=== PATIENT | female | born 1975 | race Caucasian/White ===

== ENCOUNTER 2019-03-21 14:08 | Emergency (ER) | payer MEDICARE, OTHER ==
[2019-03-21 14:16] VITALS: BP 138/83; PULSE 63; RESP 18; TEMP 97.8
--- NOTE | 2019-03-21 14:29 | ED ---
Upper Extremity HPI - General Chief Complaint: Extremity Injury, Upper Stated Complaint: Hand Injury Time Seen by Provider: 03/21/19 14:28 Source: patient Mode of arrival: ambulatory Limitations: no limitations - History of Present Illness Initial Comments: 33-year-old female presenting for left hand pain states 4 weeks ago she slammed it in the fridge door. Patient states she has had pain all over since. Patient states she also has history of carpal tunnel and feels like that is acting up she states she has tingling in her fingers. She denies complete loss of sensation denies any neck injury or trauma. Patient denies any weakness in the hands or arm. Remaining review systems negative upon arrival patient appears well no signs acute distress. Denies fevers redness or flulike symptoms - Related Data Home Medications Medication Instructions Recorded Confirmed ALPRAZolam 0.5 mg PO BID PRN 06/05/15 12/21/15 Citalopram Hydrobromide [CeleXA] 40 mg PO DAILY 12/21/15 12/21/15 Lidocaine Viscous 2% [Xylocaine 5 ml MUCOUS MEM DIRECTED PRN 12/21/15 12/21/15 Viscous 2%] Previous Rx's Medication Instructions Recorded HYDROcodone/APAP 5-325MG [[place] 1 tab PO Q6HR PRN #30 tab 12/21/15 5-325] Penicillin V Potassium [Pen Vee K] 500 mg PO QID #40 tab 12/21/15 Allergies Allergy/AdvReac Type Severity Reaction Status Date / Time aspirin Allergy Swelling Verified 03/21/19 14:16 ibuprofen Allergy Swelling Verified 03/21/19 14:16 Review of Systems ROS Statement: Those systems with pertinent positive or pertinent negative responses have been documented in the HPI. ROS Other: All systems not noted in ROS Statement are negative. Past Medical History Past Medical History: Cancer, Osteoarthritis (OA), Seizure Disorder Additional Past Medical History / Comment(s): HEAVY FLOW AND PELVIC PAIN WITH MENSCES. Chronic back pain. gum cancer History of Any Multi-Drug Resistant Organisms: None Reported Past Surgical History: Section, Hernia Repair, Orthopedic Surgery, Tubal Ligation Additional Past Surgical History / Comment(s): ANXIETY INDUCED SEIZURES (LAST ONE ON 06/04/15). Gastric BYPASS. ORIF OF RIGHT ANKLE. RIGHT CARPAL TUNNEL. Past Anesthesia/Blood Transfusion Reactions: No Reported Reaction Past Psychological History: Anxiety Smoking Status: Never smoker Past Alcohol Use History: Occasional Past Drug Use History: Marijuana - Past Family History Father Family Medical History: Cancer Mother Family Medical History: Coronary Artery Disease (CAD) General Exam - General Exam Comments Initial Comments: General: The patient is awake and alert, in no distress, and does not appear acutely ill. Eye: Pupils are equal, round and reactive to light, extra-ocular movements are intact. No nystagmus. There is normal conjunctiva bilaterally. No signs of icterus. Cardiovascular: There is a regular rate and rhythm. No murmur, rub or gallop is appreciated. Respiratory: Lungs are clear to auscultation, respirations are non-labored, breath sounds are equal. No wheezes, stridor, rales, or rhonchi. Gastrointestinal: [Soft, non-distended, non-tender abdomen without masses or organomegaly noted. There is no rebound or guarding present. No CVA tenderness. Bowel sounds are unremarkable.] Musculoskeletal: Upon inspection of the hands bilaterally that are equal no soft tissue swelling or ecchymosis. No abrasions laceration. Patient is able to fully range at the MTP DIP and PIP joints of all 5 digits of the hands bilaterally these are equal. No wrist drop. Patient is able to make the okay fingers crossed thumbs-up and extends at the wrist bilaterally. Compartments are soft and compressible. +2 radial pulses bilaterally. Capillary refill less than 3 seconds. Pain/tingling is reproduced in the digits with tapping of the wrist. Neurological: A&O x 3. CN II-XII intact, There are no obvious motor or sensory deficits. Coordination appears grossly intact. Speech is normal. Skin: Skin is warm and dry and no rashes or lesions are noted. Psychiatric: Cooperative, appropriate mood & affect, normal judgment. Limitations: no limitations Course Vital Signs 03/21/19 14:13 Temperature 97.8 F Pulse Rate 63 Respiratory 18 Rate Blood Pressure 138/83 O2 Sat by Pulse 100 Oximetry Medical Decision Making - Medical Decision Making 43-year-old female presenting for left hand, 4 weeks prior complaining of consistent pain. She also states she has some tingling in the digits of her fingers she states she feels like her carpal tunnel is acting up. Positive Tinel's. Patient Norvasc intact. No evidence of significant trauma. No redness. The limitations of range of motion or strength. Patient neurovascularly intact. And he states negative for osseous process. Patient be discharged with instruction to rest ice compress the area take ibuprofen and Tylenol for pain management. I recommend if symptoms persist patient follow up with her primary care provider. Patient is agreeable to plan return parameters were discussed Disposition Clinical Impression: Right hand pain, Right wrist pain, Hx of carpal tunnel syndrome Disposition: HOME SELF-CARE Condition: Good Instructions (If sedation given, give patient instructions): Carpal Tunnel Surgery (DC) Additional Instructions: Please use medication as discussed. Please follow-up with family doctor in the next 2 days, if symptoms persist please follow-up with orthopedic surgery. Please return to emergency room if the symptoms increase or worsen or for any other concerns. Is patient prescribed a controlled substance at d/c from ED?: No Referrals: Luh Dickinson MD [Primary Care Provider] - 1-2 days Time of Disposition: 15:07
--- NOTE | 2019-03-21 15:03 | XR ---
EXAMINATION TYPE: XR wrist complete LT, XR hand complete LT DATE OF EXAM: 03/21/2019 CLINICAL HISTORY: Left hand and wrist pain after injury TECHNIQUE: Frontal, lateral and oblique images of the left hand and wrist wrist are obtained. Scapho id view was also obtained COMPARISON: None FINDINGS: There is no acute fracture/dislocation evident in the left hand nor left wrist. The joint spaces in the left hand nor left wrist appear within normal limits. The overlying soft tissue appea rs unremarkable. IMPRESSION: There is no acute fracture or dislocation in the left hand nor wrist.
== END 2019-03-21 15:15 | disposition home or self-care (01) ==
LOC: EC 14:08
DX: M79.642 Pain in left hand (principal); M25.532 Pain in left wrist; R20.0 Anesthesia of skin; R20.2 Paresthesia of skin; F41.9 Anxiety disorder, unspecified; Z86.69 Personal history of other diseases of the nervous system and sense organs; Z87.39 Personal history of other diseases of the musculoskeletal system and connective tissue; Z85.818 Personal history of malignant neoplasm of other sites of lip, oral cavity, and pharynx; Z79.899 Other long term (current) drug therapy; Z88.6 Allergy status to analgesic agent
CPT/HCPCS: 99283

== ENCOUNTER 2019-04-10 08:40 | Emergency (ER) | payer MEDICARE, OTHER ==
--- NOTE | 2019-04-10 09:49 | ED ---
General Adult HPI - General Chief complaint: Extremity Injury, Upper Stated complaint: LEFT HAND INJURY Time Seen by Provider: 04/10/19 09:38 Source: patient, RN notes reviewed Mode of arrival: ambulatory Limitations: no limitations - History of Present Illness Initial comments: 43-year-old female presents emergency Department chief complaint left hand pain, numbness. Patient states that she recently goes she is moving her fridge and states her hand crushed. Patient states she's ever since she's had pain, numbness and tingling in her fingers. Patient states is primarily her first to fourth digit. Patient states it's painful to touch area times. She is [id number] she also states some pain radiates up her arm. Denies any neck pain, headache, dizziness, chronic focal weakness. - Related Data Home Medications Medication Instructions Recorded Confirmed Cholecalciferol [Vitamin D3 (25 1,000 unit PO DAILY 04/10/19 04/10/19 Mcg = 1000 Iu)] DULoxetine HCL [Cymbalta] 60 mg PO DAILY 04/10/19 04/10/19 HYDROcodone/APAP 5-325MG [[place] 0.5 tab PO Q6HR PRN 04/10/19 04/10/19 5-325] Magnesium 200 mg PO DAILY 04/10/19 04/10/19 Multivitamins, Thera [Multivitamin 1 tab PO DAILY 04/10/19 04/10/19 (formulary)] Potassium Gluconate 99 mg PO DAILY 04/10/19 04/10/19 Vitamin A 8,000 unit PO DAILY 04/10/19 04/10/19 Vitamin B Complex 1 cap PO DAILY 04/10/19 04/10/19 Vitamin E (Dl,Tocopheryl Acet) 400 unit PO DAILY 04/10/19 04/10/19 [Vitamin E] hydrOXYzine HCL [Atarax] 25 mg PO DAILY 04/10/19 04/10/19 tiZANidine [Zanaflex] 4 mg PO TID 04/10/19 04/10/19 Previous Rx's Medication Instructions Recorded predniSONE 50 mg PO DAILY #5 tab 04/10/19 Allergies Allergy/AdvReac Type Severity Reaction Status Date / Time aspirin Allergy Swelling Verified 04/10/19 09:48 ibuprofen Allergy Swelling Verified 04/10/19 09:48 Review of Systems ROS Statement: Those systems with pertinent positive or pertinent negative responses have been documented in the HPI. ROS Other: All systems not noted in ROS Statement are negative. Past Medical History Past Medical History: Cancer, Osteoarthritis (OA), Seizure Disorder Additional Past Medical History / Comment(s): HEAVY FLOW AND PELVIC PAIN WITH MENSCES. Chronic back pain. gum cancer, pancreatitis History of Any Multi-Drug Resistant Organisms: None Reported Past Surgical History: Section, Hernia Repair, Orthopedic Surgery, Tubal Ligation Additional Past Surgical History / Comment(s): ANXIETY INDUCED SEIZURES (LAST ONE ON 06/04/15). Gastric BYPASS. ORIF OF RIGHT ANKLE. RIGHT CARPAL TUNNEL. Past Anesthesia/Blood Transfusion Reactions: No Reported Reaction Past Psychological History: Anxiety Smoking Status: Current every day smoker Past Alcohol Use History: Occasional Past Drug Use History: Marijuana - Past Family History Father Family Medical History: Cancer Mother Family Medical History: Coronary Artery Disease (CAD) General Exam Limitations: no limitations General appearance: alert, in no apparent distress Head exam: Present: atraumatic, normocephalic, normal inspection Neck exam: Present: normal inspection, full ROM. Absent: tenderness, meningismus, lymphadenopathy Respiratory exam: Present: normal lung sounds bilaterally. Absent: respiratory distress, wheezes, rales, rhonchi, stridor Cardiovascular Exam: Present: regular rate, normal rhythm, normal heart sounds. Absent: systolic murmur, diastolic murmur, rubs, gallop, clicks Extremities exam: Present: other (Left hand there is pain and carpal region, neurovascular intact Refill less than 2 seconds. Strength equal 5/5 is pain with Tinel's and Phalen's) Neurological exam: Present: alert, oriented X3, CN II-XII intact, reflexes normal. Absent: motor sensory deficit Skin exam: Present: warm, dry, intact, normal color. Absent: rash Course Vital Signs 04/10/19 08:56 Temperature 98.3 F Pulse Rate 82 Respiratory 20 Rate Blood Pressure 135/89 O2 Sat by Pulse 100 Oximetry Medical Decision Making - Medical Decision Making 43-year-old female presents emergency department for left hand pain and numbness and tingling. Patient's x-ray shows some probable cysts or arthritic changes to consider MRI given persistent symptoms though I do feel this is related to carpal tunnel or more of a tendinitis. Patient will be started on steroids will be discharged with some pain medication follow-up with orthopedics. Disposition Clinical Impression: Pain in left wrist, Carpal tunnel syndrome Disposition: HOME SELF-CARE Condition: Stable Instructions (If sedation given, give patient instructions): Wrist Injury (ED) Additional Instructions: Please return to the Emergency Department if symptoms worsen or any other concerns. Prescriptions: predniSONE 50 mg PO DAILY #5 tab Is patient prescribed a controlled substance at d/c from ED?: No Referrals: Patrica Vogt MD [Primary Care Provider] - 1-2 days Manuel Castro DO [Medical Doctor] - 1-2 days Time of Disposition: 11:00
[2019-04-10] MEDS ORDERED: traMADol 50 MG TAB PO STA (10:06)
--- NOTE | 2019-04-10 10:08 | XR ---
EXAMINATION TYPE: XR wrist complete LT DATE OF EXAM: 04/10/2019 CLINICAL HISTORY: Left wrist pain TECHNIQUE: Frontal, lateral and oblique images of the left wrist are obtained. Scaphoid view was als o obtained. COMPARISON: 03/21/19 FINDINGS: There is no acute fracture/dislocation evident in the left wrist. The joint spaces in the left wrist appear within normal limits. Solitary likely degenerative cyst is seen in the scaphoid. V bonita mild joint space narrowing of the first carpometacarpal joint. No negative or positive ulnar vari ance. The overlying soft tissue appears unremarkable. IMPRESSION: There is no acute fracture or dislocation in the left wrist. Minimal degenerative change s of the first carpometacarpal joint and probable cysts of the scaphoid. Considering this patient's p ersistent pain MR could evaluate the ligamentous and tendinous structures.
[2019-04-10 11:20] VITALS: BP 125/84; PULSE 81; RESP 18; TEMP 97.6
== END 2019-04-10 11:20 | disposition home or self-care (01) ==
LOC: EC 08:40
DX: G56.02 Carpal tunnel syndrome, left upper limb (principal); F41.9 Anxiety disorder, unspecified; F17.200 Nicotine dependence, unspecified, uncomplicated; Z87.39 Personal history of other diseases of the musculoskeletal system and connective tissue; Z85.818 Personal history of malignant neoplasm of other sites of lip, oral cavity, and pharynx; Z79.899 Other long term (current) drug therapy; Z88.6 Allergy status to analgesic agent
CPT/HCPCS: 99283

== ENCOUNTER 2019-05-07 08:11 | Emergency (ER) | payer MEDICARE, OTHER ==
[2019-05-07 08:22] VITALS: BP 118/83; PULSE 88; RESP 17; TEMP 97.4
--- NOTE | 2019-05-07 09:00 | ED ---
General Adult HPI - General Chief complaint: Alcohol Stated complaint: ETOH withdrawals Time Seen by Provider: 05/07/19 08:35 Source: patient, RN notes reviewed Mode of arrival: ambulatory Limitations: no limitations - History of Present Illness Initial comments: Patient is a pleasant 43-year-old female presenting to the emergency Department with complaints of wanting to stop taking alcohol. Patient has stopped previously however started drinking several months ago following some bad news with her family. Patient now feels that other family members do not want to be around her because of her drinking. Patient states she previously went to a facility in [place] that seemed to help her. Patient did drink a half of a plane this morning. Patient is a daily drinker. Patient denies any confusions. Patient does not feel shaky at this time. Patient states she has felt somewhat hot and cold. - Related Data Home Medications Medication Instructions Recorded Confirmed Cholecalciferol [Vitamin D3 (25 1,000 unit PO DAILY 04/10/19 05/07/19 Mcg = 1000 Iu)] DULoxetine HCL [Cymbalta] 60 mg PO DAILY 04/10/19 05/07/19 Magnesium 200 mg PO DAILY 04/10/19 05/07/19 Multivitamins, Thera [Multivitamin 1 tab PO DAILY 04/10/19 05/07/19 (formulary)] Potassium Gluconate 99 mg PO DAILY 04/10/19 05/07/19 Vitamin B Complex 1 cap PO DAILY 04/10/19 05/07/19 Vitamin E (Dl,Tocopheryl Acet) 400 unit PO DAILY 04/10/19 05/07/19 [Vitamin E] hydrOXYzine HCL [Atarax] 25 mg PO DAILY 04/10/19 05/07/19 tiZANidine [Zanaflex] 4 mg PO TID 04/10/19 05/07/19 Previous Rx's Medication Instructions Recorded LORazepam [Ativan] 1 mg PO BID #6 tab 05/07/19 Allergies Allergy/AdvReac Type Severity Reaction Status Date / Time aspirin Allergy Swelling Verified 05/07/19 08:29 ibuprofen Allergy Swelling Verified 05/07/19 08:29 Review of Systems ROS Statement: Those systems with pertinent positive or pertinent negative responses have been documented in the HPI. ROS Other: All systems not noted in ROS Statement are negative. Constitutional: Denies: fever Eyes: Denies: eye pain ENT: Denies: ear pain Respiratory: Denies: cough Cardiovascular: Denies: chest pain Endocrine: Denies: fatigue Gastrointestinal: Denies: abdominal pain Genitourinary: Denies: dysuria Musculoskeletal: Denies: back pain Skin: Denies: rash Neurological: Denies: weakness Psychiatric: Denies: suicidal thoughts Past Medical History Past Medical History: Cancer, Osteoarthritis (OA), Seizure Disorder Additional Past Medical History / Comment(s): HEAVY FLOW AND PELVIC PAIN WITH MENSCES. Chronic back pain. gum cancer, pancreatitis History of Any Multi-Drug Resistant Organisms: None Reported Past Surgical History: Section, Hernia Repair, Orthopedic Surgery, Tubal Ligation Additional Past Surgical History / Comment(s): ANXIETY INDUCED SEIZURES (LAST ONE ON 06/04/15). Gastric BYPASS. ORIF OF RIGHT ANKLE. RIGHT CARPAL TUNNEL. Past Anesthesia/Blood Transfusion Reactions: No Reported Reaction Past Psychological History: Anxiety Smoking Status: Current every day smoker Past Alcohol Use History: Abuse Past Drug Use History: Marijuana - Past Family History Father Family Medical History: Cancer Mother Family Medical History: Coronary Artery Disease (CAD) General Exam Limitations: no limitations General appearance: alert, in no apparent distress Head exam: Present: atraumatic Eye exam: Present: normal appearance, PERRL. Absent: nystagmus ENT exam: Present: normal oropharynx Neck exam: Present: normal inspection Respiratory exam: Present: normal lung sounds bilaterally Cardiovascular Exam: Present: regular rate, normal rhythm GI/Abdominal exam: Present: soft. Absent: tenderness Extremities exam: Present: normal inspection Neurological exam: Present: alert Psychiatric exam: Present: normal affect, normal mood Skin exam: Present: normal color Course Vital Signs 05/07/19 08:17 Temperature 97.4 F L Pulse Rate 88 Respiratory 17 Rate Blood Pressure 118/83 O2 Sat by Pulse 99 Oximetry Disposition Clinical Impression: Alcohol withdrawal syndrome Disposition: HOME SELF-CARE Condition: Stable Instructions (If sedation given, give patient instructions): Alcohol Withdrawal (ED) Additional Instructions: Please follow-up with your primary care physician in the next day or 2 for recheck. Please return to the facility that worked well for your previously and he. [facility] may also [facility], list provided. return for thoughts of self-harm, worsening symptoms or other concerns. Prescription has been sent to [facility] pharmacy Prescriptions: LORazepam [Ativan] 1 mg PO BID #6 tab Is patient prescribed a controlled substance at d/c from ED?: Yes When asked, does pt state using other controlled substances?: No If prescribed controlled substance>3 days was MAPS reviewed?: Prescribed <3 Days Referrals: Patrica Vogt MD [Primary Care Provider] - 1-2 days Time of Disposition: 08:59
== END 2019-05-07 09:10 | disposition home or self-care (01) ==
LOC: EC 08:11
DX: F10.239 Alcohol dependence with withdrawal, unspecified (principal); F41.9 Anxiety disorder, unspecified; F17.200 Nicotine dependence, unspecified, uncomplicated; Z88.6 Allergy status to analgesic agent; Z79.899 Other long term (current) drug therapy; Z85.818 Personal history of malignant neoplasm of other sites of lip, oral cavity, and pharynx
CPT/HCPCS: 99284

== ENCOUNTER → 2020-04-28 | Outpatient (CLI) | payer MEDICARE, OTHER ==
--- NOTE | 2020-04-28 07:07 | CT ---
EXAMINATION TYPE: CT brain cspine wo con DATE OF EXAM: 04/28/2020 COMPARISON: CT brain August 18, 2012 and older studies. HISTORY: Syncope, PENA, neck pain CT DLP: 1260.8 mGycm. Automated Exposure Control for Dose Reduction was Utilized. TECHNIQUE: CT scan of the head and cervical spine are performed without contrast. FINDINGS: There is no acute intracranial hemorrhage, mass effect, or midline shift identified. The ventricles and sulci are within normal limits in size. Kuo-white matter differentiation is maintai kamron. The globes are intact and the visualized sinuses are clear. No suspicious opacification mastoid air cells. Cervical spine is visualized in its entirety from C1 through upper thoracic levels and demonstrates s light grade 1 retrolisthesis C5 on C6 without evidence of acute fracture or dislocation. Prevertebra l soft tissue appears within normal limits. The C1-C2 articulation is within normal limits on the co julissa images. Vertebral body heights and disc space heights are maintained. Spinal canal is preserved . Axial images show no large focal disc herniation or significant neural foraminal narrowing at any cer vical level. Thyroid gland is also within normal limits. Lung apices show no pneumothorax. IMPRESSION: 1. There is no acute fracture or dislocation evident in the cervical spine. 2. No acute intracranial hemorrhage or midline shift is seen. No significant change from prior studie s.
--- NOTE | 2020-04-28 14:06 | XR ---
EXAMINATION TYPE: XR sacrum coccyx, XR lumbosacral spine min 4V DATE OF EXAM: 04/28/2020 CLINICAL HISTORY: Fall in March, landed on back side. Pain in sacrum and coccyx area. TECHNIQUE: Frontal, lateral, and oblique images of the lumbar spine are obtained. 3 views of the sacr um are obtained. COMPARISON: None FINDINGS: Lumbar spine: There are 5 lumbar type vertebral bodies identified. The lumbar spine shows satisfacto ry alignment without evidence of acute fracture or dislocation. Vertebral body heights are within nor mal limits. There is L5-S1 disc space narrowing with degenerative endplate changes and spurring. Mil d diffuse anterior endplate spurring. Facet arthropathy. Left L5 pars defect most likely. No spondylo listhesis. Suture material and surgical clips of the abdomen. Sacrum: Sacrum is intact. SI joints are symmetric. Coccyx appears to be intact. Visualized pelvic structures intact. IMPRESSION: 1. No acute fracture or dislocation is seen in the lumbar spine or sacrum. 2. Degenerative disc disease and facet arthropathy. There is likely a left L5 pars defect. No spondyl olisthesis.
== END | disposition home or self-care (01) ==
LOC: RADCTMAIN 06:28
PROVIDERS: ATTEND Family Medicine
DX: R55 Syncope and collapse (principal); R51 Headache; M51.37 Other intervertebral disc degeneration, lumbosacral region; M47.817 Spondylosis without myelopathy or radiculopathy, lumbosacral region
CPT/HCPCS: 70450; 72110; 72125; 72220

== ENCOUNTER 2023-01-24 03:15 | Emergency (ER) | payer MEDICARE, OTHER ==
[2023-01-24 03:23] VITALS: RESP 16
[2023-01-24] MEDS ORDERED: KETOROLAC 15 MG/ML 1 ML VIAL IVP STA (03:41)
[2023-01-24] MEDS ORDERED: SODIUM CHLORIDE 0.9% 1,000 ML IV ONE (03:49)
[2023-01-24 03:52] LABS: Anisocytosis Slight; Basophils % (A) 0 %; Eosinophils # (A) 0.4 k/uL (0-0.7); Eosinophils % (A) 4 %; Lymphocytes # (A) 2.3 k/uL (1.0-4.8); Lymphocytes % (A) 19 %; MCH 28.7 pg (25.0-35.0); MCHC 31.6 g/dL (31.0-37.0); MCV 90.7 fL (80.0-100.0); Mean Platelet Volume 6.8; Monocytes # (A) 0.7 k/uL (0-1.0); Monocytes % (A) 6 %; Neutrophils # (A) 8.2 k/uL (1.3-7.7); Neutrophils % (A) 68 %; Platelet Count 335 k/uL (150-450); RBC 4.19 m/uL (3.80-5.40)
[2023-01-24 03:58] LABS: Appearance,Urine Turbid (Clear); Bacteria,Urine Occasional /hpf; Bilirubin,Urine Negative (Negative); Blood,Urine Large (Negative); Color,Urine Yellow; Glucose,Urine (UA) Negative (Negative); Ketones,Urine Trace (Negative); Leukocyte Esterase,Urine Large (Negative); Mucus,Urine Occasional /hpf; Nitrite,Urine Negative (Negative); Protein,Urine 3+ (Negative); RBC,Urine >182 /hpf (0-5); Squamous Epithelial Cell,Urine 5 /hpf (0-4); WBC,Urine >182 /hpf (0-5)
[2023-01-24 03:59] LABS: Specific Gravity,Urine 1.026 (1.001-1.035)
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
[2023-01-24 04:26] LABS: ALT 18 U/L (4-34); AST 29 U/L (14-36); African American GFR (CKD) >90 (>60 ml/min/1.73 sqM); Albumin 4.2 g/dL (3.5-5.0); Alkaline Phosphatase 124 U/L (38-126); Anion Gap 9 mmol/L; Blood Urea Nitrogen 16 mg/dL (7-17); Calcium 9.7 mg/dL (8.4-10.2); Carbon Dioxide 25 mmol/L (22-30); Chloride 103 mmol/L (98-107); Glucose 104 mg/dL (74-99); Lipase 32 U/L (23-300); Magnesium 1.6 mg/dL (1.6-2.3); Non-African American GFR(CKD) >90 (>60 ml/min/1.73 sqM); Potassium 4.2 mmol/L (3.5-5.1); Sodium 137 mmol/L (137-145); Total Bilirubin 0.8 mg/dL (0.2-1.3); Total Protein 7.3 g/dL (6.3-8.2)
[2023-01-24] MEDS ORDERED: MORPHINE SULFATE 4 MG/ML SYRINGE IVP STA ×2 (05:04→07:39)
--- NOTE | 2023-01-24 07:44 | CT ---
EXAMINATION TYPE: CT abdomen pelvis wo con DATE OF EXAM: 01/24/2023 COMPARISON: 05/06/2020 HISTORY: Pain, renal calculus Examination of the solid and hollow viscera is limited given the lack of contrast. FINDINGS: LUNG BASES: No evidence for nodule. No evidence for infiltrate. LIVER/GB: The gallbladder is surgically absent. No space-occupying hepatic lesion. PANCREAS: No pancreatic mass identified. No inflammatory process seen. SPLEEN: No evidence for splenomegaly. No intrasplenic lesions seen. ADRENALS: No adrenal nodules identified. No evidence for thickening. KIDNEYS: No evidence for renal mass. No nephrolithiasis. No hydronephrosis. BOWEL: Postsurgical changes about the stomach and small bowel with multiple anastomoses noted. No def inite evidence for leak or abscess. Appendix has a normal appearance. No evidence of bowel obstructio n. No inflammatory process. Lymph nodes: No evidence for adenopathy greater than 1 cm. Abdominal aorta: Atheromatous changes seen. No evidence for aneurysm. Genital organs: No significant abnormality. Other: Severe degenerative changes lumbar spine at L5-S1 with vacuum disc. IMPRESSION: 1. No evidence for nephrolithiasis or hydronephrosis. 2. no evidence for inflammatory process, free air or abscess.
[2023-01-24] MEDS ORDERED: cefTRIAXone IN SWFI 1,000 MG/10 ML SYRINGE IVP STA (08:31)
[2023-01-24 09:12] VITALS: BP 149/95; PULSE 66
[2023-01-24 09:33] VITALS: TEMP 97.8
== END 2023-01-24 09:33 | disposition home or self-care (01) ==
LOC: EC 03:15
DX: N93.9 Abnormal uterine and vaginal bleeding, unspecified (principal); R82.90 Unspecified abnormal findings in urine; F41.9 Anxiety disorder, unspecified; F12.90 Cannabis use, unspecified, uncomplicated; Z88.6 Allergy status to analgesic agent; Z79.899 Other long term (current) drug therapy; Z87.891 Personal history of nicotine dependence
CPT/HCPCS: 36415; 80053; 83690; 83735; 85025; 81001; 81025; 87086; 74176; 99285; 96374; 96375 ×2; 96376; 96361; J2270; J0696; J1885

== ENCOUNTER 2023-02-09 18:07 | Inpatient (IN) | payer MEDICARE, MEDICAID ==
[2023-02-09] MEDS ORDERED: NICOTINE 21MG/24HR PATCH TRANSDERM STA (19:01)
[2023-02-09 19:17] LABS: Amphetamine Screen,Urine Not Detected (NotDetected); Barbiturate Screen,Urine Not Detected (NotDetected); Benzodiazepines Screen,Urine Not Detected (NotDetected); Cocaine Screen,Urine Not Detected (NotDetected); Methadone Screen, Urine Not Detected (NotDetected); Opiate Screen,Urine Not Detected (NotDetected); Oxycodone Screen, Urine Not Detected (NotDetected); Phencyclidine Screen,Urine Not Detected (NotDetected); Tricyclic Antidepressant,Urine Not Detected (NotDetected); Urn Cannabinoid Scrn Detected (NotDetected)
--- NOTE | 2023-02-09 19:19 | ED ---
General Adult HPI - General Source: patient, EMS, RN notes reviewed, old records reviewed Mode of arrival: EMS Limitations: no limitations <Gianfranco Hernandez - Last Filed: 02/09/23 19:17> - History of Present Illness -: hour(s) Radiation: non-radiation Severity scale (1-10): 0 Consistency: constant Improves with: none Worsens with: none Associated Symptoms: denies other symptoms Treatments Prior to Arrival: none <Parker Paulino - Last Filed: 02/11/23 21:24> - General Chief complaint: Psychiatric Symptoms Stated complaint: Suicide Time Seen by Provider: 02/09/23 18:48 - History of Present Illness Initial comments: 47-year-old female presenting for mental health evaluation. Patient admits to suicidal ideation and plan to jump out in front of traffic. She has been petitioned by local it project coordinator for mental health evaluation. She is intoxicated and admits to alcohol use. (Gianfranco Hernandez) - Related Data Home Medications Medication Instructions Recorded Confirmed No Known Home Medications 02/09/23 02/09/23 Allergies Allergy/AdvReac Type Severity Reaction Status Date / Time aspirin Allergy Swelling Verified 02/09/23 22:35 ibuprofen Allergy Swelling Verified 02/09/23 22:35 Review of Systems ROS Other: All systems not noted in ROS Statement are negative. <Gianfranco Hernandez - Last Filed: 02/09/23 19:17> ROS Other: All systems not noted in ROS Statement are negative. <Parker Paulino - Last Filed: 02/11/23 21:24> ROS Statement: Those systems with pertinent positive or pertinent negative responses have been documented in the HPI. Past Medical History Past Medical History: Cancer, Osteoarthritis (OA), Seizure Disorder Additional Past Medical History / Comment(s): HEAVY FLOW AND PELVIC PAIN WITH MENSCES. Chronic back pain. gum cancer, pancreatitis History of Any Multi-Drug Resistant Organisms: None Reported Past Surgical History: Section, Hernia Repair, Orthopedic Surgery, Tubal Ligation Additional Past Surgical History / Comment(s): ANXIETY INDUCED SEIZURES (LAST ONE ON 06/04/15). Gastric BYPASS. ORIF OF RIGHT ANKLE. RIGHT CARPAL TUNNEL. Past Anesthesia/Blood Transfusion Reactions: No Reported Reaction Past Psychological History: Anxiety Smoking Status: Former smoker Past Alcohol Use History: Abuse Past Drug Use History: Marijuana - Past Family History Father Family Medical History: Cancer Mother Family Medical History: Coronary Artery Disease (CAD) <Gianfranco Hernandez Winter - Last Filed: 02/09/23 19:17> General Exam Limitations: no limitations General appearance: alert, in no apparent distress, appears intoxicated Head exam: Present: atraumatic, normocephalic Eye exam: Present: normal appearance, PERRL ENT exam: Present: normal exam Neck exam: Present: normal inspection. Absent: tenderness, meningismus Respiratory exam: Present: normal lung sounds bilaterally. Absent: respiratory distress, wheezes Cardiovascular Exam: Present: regular rate, normal rhythm GI/Abdominal exam: Present: soft. Absent: distended, tenderness Extremities exam: Present: normal inspection, normal capillary refill Neurological exam: Present: alert, oriented X3, CN II-XII intact. Absent: motor sensory deficit Psychiatric exam: Present: depressed, flat affect, suicidal ideation Skin exam: Present: warm, dry, intact <Gianfranco Hernandez N - Last Filed: 02/09/23 19:17> General appearance: alert, in no apparent distress Head exam: Present: atraumatic, normocephalic, normal inspection Eye exam: Present: normal appearance, PERRL, EOMI. Absent: scleral icterus, conjunctival injection, periorbital swelling ENT exam: Present: normal exam, mucous membranes moist Neck exam: Present: normal inspection. Absent: tenderness, meningismus, lymphadenopathy Respiratory exam: Present: normal lung sounds bilaterally. Absent: respiratory distress, wheezes, rales, rhonchi, stridor Cardiovascular Exam: Present: regular rate, normal rhythm, normal heart sounds. Absent: systolic murmur, diastolic murmur, rubs, gallop, clicks GI/Abdominal exam: Present: soft, normal bowel sounds. Absent: distended, tenderness, guarding, rebound, rigid Extremities exam: Present: normal inspection, full ROM, normal capillary refill. Absent: tenderness, pedal edema, joint swelling, calf tenderness Back exam: Present: normal inspection Neurological exam: Present: alert, oriented X3, CN II-XII intact Psychiatric exam: Present: normal affect, normal mood Skin exam: Present: warm, dry, intact, normal color. Absent: rash <Parker Paulino - Last Filed: 02/11/23 21:24> Course <Gianfranco Hernandez - Last Filed: 02/09/23 19:17> <Parker Paulino - Last Filed: 02/11/23 21:24> Vital Signs 02/09/23 18:18 Temperature 98.1 F Pulse Rate 96 Respiratory 18 Rate Blood Pressure 133/87 O2 Sat by Pulse 96 Oximetry - Reevaluation(s) Reevaluation #1: 02/09/23 2100 Awaiting sobriety and EPS evaluation. Care signed out at shift change to oncoming physician. (Gianfranco Hernandez) 02/10/23 00:59 Medical records reviewed (Parker Paulino) Reevaluation #2: 02/10/23 01:30 Medical clear for psychiatric evaluation (Parker Paulino) Medical Decision Making - Lab Data Result diagrams: 02/10/23 14:16 02/10/23 14:08 <Parker Paulino - Last Filed: 02/11/23 21:24> - Medical Decision Making 47 female will be admitted for psychiatric evaluation and treatment (Parker Paulino) - Lab Data Lab Results 02/09/23 02/10/23 Range/Units 19:00 03:32 Urine Opiates Screen Not Detected (NotDetected) Ur Oxycodone Screen Not Detected (NotDetected) Urine Methadone Screen Not Detected (NotDetected) Ur Propoxyphene Screen Not Detected (NotDetected) Ur Barbiturates Screen Not Detected (NotDetected) U Tricyclic Antidepress Not Detected (NotDetected) Ur Phencyclidine Scrn Not Detected (NotDetected) Ur Amphetamines Screen Not Detected (NotDetected) U Methamphetamines Scrn Not Detected (NotDetected) U Benzodiazepines Scrn Not Detected (NotDetected) Urine Cocaine Screen Not Detected (NotDetected) U Marijuana (THC) Screen Detected H (NotDetected) Coronavirus (PCR) Not Detected (Not Detectd) Disposition <Gianfranco Hernandez - Last Filed: 02/09/23 19:17> Is patient prescribed a controlled substance at d/c from ED?: No <Parker Paulino - Last Filed: 02/11/23 21:24> Clinical Impression: Acute anxiety, Depression, Adjustment reaction of adult life Disposition: TRANSFER TO PSYCH HOSP/UNIT Condition: Fair
[2023-02-10] MEDS ORDERED: LORazepam 1 MG TAB PO STA (02:13)
[2023-02-10] MEDS ORDERED: HALOPERIDOL LACTATE 5 MG/ML 1 ML VIAL IM PRN (04:09)
[2023-02-10] MEDS ORDERED: MAGNESIUM HYDROXIDE 2,400 MG/30 ML CUP PO PRN (04:09)
[2023-02-10] MEDS ORDERED: traZODone HCL 50 MG TAB PO PRN (04:09)
[2023-02-10] MEDS ORDERED: haloperidoL 5 MG TAB PO PRN (04:09)
[2023-02-10] MEDS ORDERED: MAG HYDROX/AL HYDROX/SIMETH 30 ML CUP PO PRN (04:09)
[2023-02-10] MEDS: NICOTINE 21MG/24HR PATCH TRANSDERM SCH (08:50)
[2023-02-10] MEDS ORDERED: LORazepam 2 MG/ML INJ IM PRN (10:55)
[2023-02-10] MEDS ORDERED: LORazepam 1 MG TAB PO PRN (10:56)
[2023-02-10] MEDS: SERTRALINE 50 MG TAB PO SCH (11:21)
[2023-02-10] MEDS: MULTIVITAMINS, THERA 1 EACH TAB PO SCH (11:21)
[2023-02-10] MEDS: FOLIC ACID 1 MG TAB PO SCH (11:21)
[2023-02-10] MEDS: NALTREXONE HCL 50 MG TAB PO SCH (11:21)
[2023-02-10] MEDS: THIAMINE 100 MG TAB PO SCH (11:21)
[2023-02-10] MEDS: chlordiazePOXIDE 25 MG CAP PO SCH ×3 (11:21→20:14)
[2023-02-10] MEDS: NICOTINE GUM (POLACRILEX) 2 MG GUM BUCCAL PRN ×2 (11:22→19:00)
[2023-02-10] MEDS: ACETAMINOPHEN TAB 325 MG TAB PO PRN ×2 (12:05→19:00)
--- NOTE | 2023-02-10 15:00 | P.MDCNMH ---
History of Present Illness H&P Date: 02/10/23 This is a 47-year-old female who presented to the emergency department as she was petitioned by police for mental health evaluation as patient is having suicidal ideations with thoughts of wanting to harm herself and has made plans to jump out in front of traffic. Patient reports she is a daily drinker and drinks about 1-1/2 gallons of vodka daily. Patient was intoxicated on admission to the ED and reports to admitting and drinking alcohol. No serum alcohol level was done. A UDS was done showing positive for marijuana other drug screen was negative and covert was negative. Patient was sent to [facility] for psychiatric evaluation. On exam today patient is up and walking and did report to nursing staff she had a bout of dizziness and will obtain EKG. No labs currently drawn and have ordered basic labs along with TSH. Patient denies chest pain or palpitations. Patient reports she did just receive medications including Librium that she feels is making her feel this way. Patient is maintained on CIWA protocol with oral Ativan. Patient reports she has been up and walking tolerating diet and has been to group therapy sessions and has met with psychiatrist. Patient reports she used to follow with Dr. Acosta Stone in the outpatient setting although has not seen her in over 5 years. [facility]. Per medical record patient has history of pancreatitis osteoarthritis and seizure disorder and has had gastric surgeries in the past. Patient's abdomen is protuberant will soft and denies any pain. Patient reports she has never had paracentesis for ascites. Chest is clear to auscultation. Review Of Systems: Constitutional: No fever, no chills, no night sweats. No weight change. No weakness, fatigue or lethargy. No daytime sleepiness. EENT: No headache. No blurred vision or double vision, no loss of vision. No loss of Hearing, no ringing in the ears, no dizziness. No nasal drainage or congestion. No epistaxis. No sore throat. Lungs: No shortness of breath, cough, no sputum production. No wheezing. Cardiovascular: No chest pain, no lower extremity edema. No palpitations. No paroxysmal nocturnal dyspnea. No orthopnea. No lightheadedness or dizziness. No syncopal episodes. Abdominal: No abdominal pain. No nausea, vomiting. No diarrhea. No constipation. No bloody or tarry stools.. No loss of appetite. Genitourinary: No dysuria, increased frequency, urgency. No urinary retention. Musculoskeletal: No myalgias. No muscle weakness, no gait dysfunction, no frequent falls. No back pain. No neck pain. Integumentary: No wounds, no lesions. No rash or pruritus. No unusual bruising. No change in hair or nails. Neurologic: No aphasia. No facial droop. No change in mentation. No head injury. No headache. No paralysis. No paresthesia. Psychiatric: Reports depression with suicidal ideation and plans to kill herself. Reports anxiety. No mood swings. Reports excessive daily alcohol use Endocrine: No abnormal blood sugars. No weight change. No excessive sweating or thirst. No cold intolerance. PHYSICAL EXAMINATION: GENERAL: The patient is alert and oriented x4, thin built, appears older than stated age, cachectic HEENT: Pupils are round and equally reacting to light. EOMI. no scleral icterus. No conjunctival pallor. Normocephalic, atraumatic. No pharyngeal erythema. No thyromegaly. CARDIOVASCULAR: S1 and S2 muffled PULMONARY: diminished breath sounds bilaterally with no wheezing or rhonchi noted. ABDOMEN: soft. Nontender on exam. obese. distended, normoactive bowel sounds. No palpable organomegaly. MUSCULOSKELETAL: No joint swelling or deformity. EXTREMITIES: No cyanosis, clubbing, or pedal edema. NEUROLOGICAL: Gross neurological examination did not reveal any focal deficits. Steady gait on exam SKIN: No rashes. Assessment: Anxiety/depression with suicidal ideation History of seizure disorder, last seizure in 2014 Continued ongoing tobacco use History of pancreatitis Daily chronic alcohol use, reports approximately 1-1/2 gallons of vodka daily for years THC use Full code Plan: Recommend to continue with current medications and management per psychiatric services. Patient is maintained on CIWA protocol along with being started on Librium and has been started on psychiatric medications including antidepressants Patient was petitioned by the police with suicidal ideations and a plan that she wanted to jump into traffic. Patient reports she continues to feel suicidal at times although not currently. Patient reporting some dizziness and has steady gait on exam and will order EKG along with labs which are pending from this morning. Patient reports she feels that the medication she just received and she just was started on Librium taper Patient reports her last drink was just before coming to the emergency department yesterday evening. Encourage the patient to attend group therapy sessions and complaints of medications and close follow-up with psychiatry. Thank you kindly for this consultation. The impression and plan of care has been dictated by Liv Saucedo, nurse practitioner as directed. Dr. Xochitl MD I have performed a history and examination and MDM of this patient, discussed the same with the dictator, and agree with the dictator's assessment and plan as written ,documented as a scribe. Based on total visit time, I have performed more than 50% of the visit. Any additional findings or plans will be noted. Past Medical History Past Medical History: Cancer, Osteoarthritis (OA), Seizure Disorder Additional Past Medical History / Comment(s): HEAVY FLOW AND PELVIC PAIN WITH MENSCES. Chronic back pain. gum cancer, pancreatitis History of Any Multi-Drug Resistant Organisms: None Reported Past Surgical History: Section, Hernia Repair, Orthopedic Surgery, Tubal Ligation Additional Past Surgical History / Comment(s): ANXIETY INDUCED SEIZURES (LAST ONE ON 06/04/15). Gastric BYPASS. ORIF OF RIGHT ANKLE. RIGHT CARPAL TUNNEL. Past Anesthesia/Blood Transfusion Reactions: No Reported Reaction Past Psychological History: Anxiety Smoking Status: Former smoker Past Alcohol Use History: Abuse Past Drug Use History: Marijuana - Past Family History Father Family Medical History: Cancer Mother Family Medical History: Coronary Artery Disease (CAD) Medications and Allergies Home Medications Medication Instructions Recorded Confirmed Type No Known Home Medications 02/09/23 02/09/23 History Allergies Allergy/AdvReac Type Severity Reaction Status Date / Time aspirin Allergy Swelling Verified 02/09/23 22:35 ibuprofen Allergy Swelling Verified 02/09/23 22:35 Physical Exam Vitals: Vital Signs Temp Pulse Pulse Resp BP BP Pulse Ox 02/10/23 05:21 97.3 F L 70 18 120/72 98 02/09/23 18:18 98.1 F 96 18 133/87 96 Intake and Output 02/09/23 02/10/23 02/10/23 22:59 06:59 14:59 Other: Weight 52.163 kg 65.2 kg Cranial Nerve Examination - Cranial Nerves Cranial Nerve I- Olfactory: Intact Cranial Nerve II- Optic: Intact Cranial Nerve III- Oculomotor: Intact Cranial Nerve IV- Trochlear: Intact Cranial Nerve V- Trigeminal: Intact Cranial Nerve - Abducens: Intact Cranial Nerve VII- Facial: Intact Cranial Nerve VIII- Auditory: Intact Cranial Nerve IX- Glossopharyngeal: Intact Cranial Nerve X- Vagus: Intact Cranial Nerve XI- Accessory: Intact Cranial Nerve XII- Hypoglossal: Intact Results Labs: Abnormal Lab Results - Last 24 Hours (Table) 02/09/23 Range/Units 19:00 U Marijuana (THC) Screen Detected H (NotDetected) Assessment and Plan Time with Patient: Less than 30
[2023-02-10 15:43] LABS: Anisocytosis Slight; Basophils % (A) 1 %; Eosinophils # (A) 0.2 k/uL (0-0.7); Eosinophils % (A) 3 %; HCT 34.7 % (34.0-46.0); HGB 11.1 gm/dL (11.4-16.0); Hypochromasia Slight; Lymphocytes # (A) 2.1 k/uL (1.0-4.8); Lymphocytes % (A) 45 %; MCH 30.1 pg (25.0-35.0); MCHC 31.9 g/dL (31.0-37.0); MCV 94.4 fL (80.0-100.0); Mean Platelet Volume 7.5; Monocytes # (A) 0.4 k/uL (0-1.0); Monocytes % (A) 7 %; Neutrophils % (A) 42 %; Platelet Count 372 k/uL (150-450); RBC 3.67 m/uL (3.80-5.40); RDW 17.9 % (11.5-15.5); WBC 4.7 k/uL (3.8-10.6)
[2023-02-10 15:43] LABS: HCG,Qualitative Serum Not Detected
[2023-02-10 15:47] LABS: ALT 21 U/L (4-34); AST 30 U/L (14-36); African American GFR (CKD) 88 (>60 ml/min/1.73 sqM); Albumin 4.1 g/dL (3.5-5.0); Alkaline Phosphatase 93 U/L (38-126); Anion Gap 7 mmol/L; Blood Urea Nitrogen 16 mg/dL (7-17); Calcium 9.7 mg/dL (8.4-10.2); Carbon Dioxide 24 mmol/L (22-30); Chloride 104 mmol/L (98-107); Glucose 174 mg/dL (74-99); Non-African American GFR(CKD) 76 (>60 ml/min/1.73 sqM); Potassium 4.7 mmol/L (3.5-5.1); Sodium 135 mmol/L (137-145); Total Bilirubin 0.6 mg/dL (0.2-1.3)
[2023-02-10] MEDS: LORazepam 1 MG TAB PO PRN (19:00)
[2023-02-10 19:58] LABS: Chol/HDL Ratio 1.72 Ratio; LDL Cholesterol,Calculated 66.2 mg/dL (0.0-131.0); VLDL Calculation 11.82 mg/dL (5.00-40.00)
[2023-02-10] MEDS ORDERED: traZODone HCL 50 MG TAB PO SCH (21:00)
[2023-02-11] MEDS: ACETAMINOPHEN TAB 325 MG TAB PO PRN (08:03)
[2023-02-11] MEDS: chlordiazePOXIDE 25 MG CAP PO SCH ×4 (08:03→21:32)
[2023-02-11] MEDS: MULTIVITAMINS, THERA 1 EACH TAB PO SCH (08:04)
[2023-02-11] MEDS: NICOTINE 21MG/24HR PATCH TRANSDERM SCH (08:04)
[2023-02-11] MEDS: NALTREXONE HCL 50 MG TAB PO SCH (08:04)
[2023-02-11] MEDS: THIAMINE 100 MG TAB PO SCH (08:04)
[2023-02-11] MEDS: SERTRALINE 50 MG TAB PO SCH (08:04)
[2023-02-11] MEDS: FOLIC ACID 1 MG TAB PO SCH (08:04)
[2023-02-11] MEDS: NICOTINE GUM (POLACRILEX) 2 MG GUM BUCCAL PRN (08:51)
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
--- NOTE | 2023-02-11 09:54 | P.PN ---
Progress Note - Text Progress Note Date: 02/11/23 Interval history: Patient was seen today sitting in on group and was agreeable to be seen by geno dillard in the office. she claims that she is still feeling depressed and anxious at this time. She states that she had a "rough time" sleeping last night and states that she was feeling like she was "drunk" after taking her medications. she states that she is still experiencing withdrawal sx from etoh including tremors and anxiety mainly. She claims that she is chronically to groups however states that she feels claustrophobic being on the unit and requested to go outside for fresh air. She states that she is trying to go to groups and participate as best as she can. States that the medications of only been helping mildly at this time and claims that she is still feeling suicidal this morning, denies any intent or plan. Denies any homicidal ideations. At this time she is denying any auditory or visual hallucinations. Denying any side effects from medications. Mental status examination: General Appearance: Patient appears to be fairly thin, poor eye contact, stated age is alert, directable, and cooperative today. Patient appears to have improving hygiene and grooming. Behavior: Patient is seated without any agitated behavior. Her cooperative today Speech: Patient's speech is fluent and nonpressured. [place], improving mildly Mood/Affect: Patient reports their mood is improving mildly however still depressed and anxious, affect is congruent and constricted. Suicidality/Homicidality: Patient denies having any homicidal ideation intent or plan. Denies any suicidal ideations intent or plan Perceptions: Patient denies any visual hallucinations and denies any auditory hallucinations Though content/process: There is no evidence of any delusional thought content and thought process is linear and goal-directed. [place], rambling at times. Memory and concentration: AOX3, grossly intact for the purposes of this session. Can spell "WORLD" backwards Judgment and insight: poor, improving medically IMPRESSIONS: Major depressive disorder without psychotic features suicide attempt Alcohol use disorder severe dependence methamphetamine use disorder severe cannabis use disorder nicotine dependence PLAN: -Patient is admitted under involuntary status to MHU for stabilization of psychiatric symptoms and safety. Patient has not signed adult voluntary form and medication consent and is placed in patient's chart. A second certification was completed and along with petition will be filed for court. -Medications : Increased zoloft 100 mg daily for mood/anxiety, increase trazodone 100 mg qhs for insomnia/mood, naltrexone 50 mg daily for etoh cravings. Decrease and continue tapering librium 25 mg qid for etoh withdrawal with plan to taper down over the weekend, order already placed. -Ativan and Haldol PRN for agitation/aggression -thiamine, MVM for etoh use -CIWA protocol with Ativan PRN for ETOH withdrawal -NRT - nicotine patch and nicorette gum -SW on board for discharge planning. Encourage patient to participate in groups to work on coping skills. Will await deferral and court date. likely discharge next week if she continues to improve. she is still refusing rehab at this time.
[2023-02-11] MEDS: ACETAMINOPHEN TAB 500 MG TAB PO PRN (17:11)
[2023-02-11] MEDS: traZODone HCL 100 MG TAB PO SCH (20:45)
[2023-02-12] MEDS: ACETAMINOPHEN TAB 500 MG TAB PO PRN ×2 (06:57→16:18)
[2023-02-12] MEDS: MULTIVITAMINS, THERA 1 EACH TAB PO SCH (08:44)
[2023-02-12] MEDS: THIAMINE 100 MG TAB PO SCH (08:44)
[2023-02-12] MEDS: NALTREXONE HCL 50 MG TAB PO SCH (08:44)
[2023-02-12] MEDS: FOLIC ACID 1 MG TAB PO SCH (08:44)
[2023-02-12] MEDS: NICOTINE 21MG/24HR PATCH TRANSDERM SCH (08:44)
[2023-02-12] MEDS: SERTRALINE 100 MG TAB PO SCH (08:44)
[2023-02-12] MEDS: chlordiazePOXIDE 25 MG CAP PO SCH (08:45)
[2023-02-12 11:52] LABS: Glucose,Whole Blood 234 mg/dL (70-110)
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
--- NOTE | 2023-02-12 14:23 | XR ---
Left shoulder. HISTORY: Pain following trauma. COMPARISON: None. TECHNIQUE: 3 views of the left shoulder were obtained. FINDINGS: There is no fracture, dislocation, intraosseous or intra-articular abnormality. The soft tissues are normal. IMPRESSION: No significant abnormality seen.
[2023-02-12] MEDS ORDERED: chlordiazePOXIDE 25 MG CAP PO SCH (16:00)
[2023-02-12] MEDS: NICOTINE GUM (POLACRILEX) 2 MG GUM BUCCAL PRN (16:20)
[2023-02-12] MEDS: chlordiazePOXIDE 5 MG CAPSULE PO SCH ×2 (16:22→21:21)
[2023-02-12] MEDS: traZODone HCL 100 MG TAB PO SCH (21:21)
[2023-02-13] MEDS: NALTREXONE HCL 50 MG TAB PO SCH (09:20)
[2023-02-13] MEDS: MULTIVITAMINS, THERA 1 EACH TAB PO SCH (09:20)
[2023-02-13] MEDS: chlordiazePOXIDE 5 MG CAPSULE PO SCH ×3 (09:20→21:20)
[2023-02-13] MEDS: NICOTINE 21MG/24HR PATCH TRANSDERM SCH (09:20)
[2023-02-13] MEDS: SERTRALINE 100 MG TAB PO SCH (09:20)
[2023-02-13] MEDS: THIAMINE 100 MG TAB PO SCH (09:20)
[2023-02-13] MEDS: FOLIC ACID 1 MG TAB PO SCH (09:20)
--- NOTE | 2023-02-13 10:19 | P.PN ---
Subjective Progress Note Date: 02/13/23 Principal diagnosis: IMPRESSIONS: Major depressive disorder without psychotic features suicide attempt Alcohol use disorder severe dependence methamphetamine use disorder severe cannabis use disorder nicotine dependence Rule out personality disorder unspecified Subjective/objective data: The patient was seen for a follow-up Patient was walking down the corridor without any difficulty patient however continues to complain that her left upper arm is still very painful that she needs something stronger for pain medications There appears to be no visible bruising and swelling noted on the arm She is also noted to have no difficulty with moving the arm when she was communicating with other patients Mental status examination: Reveals a middle-aged female who is edentulous Patient is alert and oriented to time place and person Patient continues to change her positioning and complaints of body aches and pain General Appearance: Patient appears to be fairly thin, poor eye contact, stated age is alert, directable, and cooperative today. Patient appears to have improving hygiene and grooming. Behavior: Remains somewhat anxious Speech: Patient's speech is fluent and nonpressured. [place], improving mildly Mood/Affect: Patient reports their mood is improving mildly however still depressed and anxious, affect is congruent and constricted. Suicidality/Homicidality: Patient denies having any homicidal ideation intent or plan. Denies any suicidal ideations intent or plan Perceptions: Patient denies any visual hallucinations and denies any auditory hallucinations Though content/process: There is no evidence of any delusional thought content and thought process is linear and goal-directed. [place], rambling at times. Memory and concentration: AOX3, grossly intact for the purposes of this session. Judgment and insight: poor, IMPRESSIONS: Major depressive disorder without psychotic features suicide attempt Alcohol use disorder severe dependence methamphetamine use disorder severe cannabis use disorder nicotine dependence Rule out drug-seeking behavior PLAN: Patient remains drug-seeking especially for pain meds -Patient is admitted under involuntary status to [facility] for stabilization of psychiatric symptoms and safety. Patient has not signed adult voluntary form and medication consent and is placed in patient's chart. A second certification was completed and along with petition will be filed for court. -Medications : zoloft 100 mg daily for mood/anxiety, trazodone 100 mg qhs for insomnia/mood, naltrexone 50 mg daily for etoh cravings. With the nursing reporting excessive sedation with Librium 25 mg would drop it down to 15 mg 3 times a day Patient also appears to be most likely drug seeking He also initiated hospitalized to see the patient regarding any medical workup like x-rays etc. -Ativan and Haldol PRN for agitation/aggression -thiamine, MVM for etoh use -CIWA protocol with Ativan PRN for ETOH withdrawal -NRT - nicotine patch and nicorette gum -SW on board for discharge planning. Encourage patient to participate in groups to work on coping skills. Will await deferral and court date. likely discharge next week if she continues to improve. she is still refusing rehab at this time. Zeke Gerard M.D. 02/12/2023 Objective - Vital Signs Vital signs: Vital Signs Temp 97.7 F 02/13/23 06:53 Pulse 67 02/13/23 06:53 Resp 16 02/13/23 06:53 BP 99/56 02/13/23 06:53 Pulse Ox 97 02/12/23 11:53 FiO2 Intake & Output 02/12/23 02/13/23 02/13/23 18:59 06:59 18:59 Weight 65.4 kg - Labs CBC & Chem 7: 02/10/23 14:16 02/10/23 14:08 Labs: Abnormal Lab Results - Last 24 Hours (Table) 02/12/23 Range/Units 11:45 POC Glucose (mg/dL) 234 H (70-110) mg/dL
[2023-02-13] MEDS: traZODone HCL 100 MG TAB PO SCH (21:19)
[2023-02-13] MEDS: LORazepam 1 MG TAB PO PRN (21:21)
[2023-02-13] MEDS: NICOTINE GUM (POLACRILEX) 2 MG GUM BUCCAL PRN (21:27)
[2023-02-14] MEDS ORDERED: busPIRone HCl 10 MG TAB PO PRN (09:03)
--- NOTE | 2023-02-14 09:07 | P.PN ---
Progress Note - Text Progress Note Date: 02/14/23 Interval history: Patient was seen today waiting in line to receive her medications. She claims that she is still feeling depressed and anxious at this time, and claims that she is having a mild tremor. Continues to be fairly focused on controlled medications. She was asking about pain medications and also benzodiazepines for anxiety. She claims that she is feeling very key and also having mood swings. She claims that she is to [place]akote [place] the park would like to get back on her. States that she had a difficult time sleeping because they. Has been going to some groups. Continues to be fairly superficial about going to rehab however did state that she thinks the access line number. claims that she is still feeling suicidal this morning, denies any intent or plan. Denies any homicidal ideations. At this time she is denying any auditory or visual hallucinations. Denying any side effects from medications. Mental status examination: General Appearance: Patient appears to be fairly thin, poor eye contact, stated age is alert, directable, and cooperative, evasive and medication seeking. Patient appears to have improving hygiene and grooming. Behavior: Patient is seated without any agitated behavior. Manipulative and medication seeking. Speech: Patient's speech is fluent and nonpressured. [place], improving mildly Mood/Affect: Patient reports their mood is improving mildly however still depressed and anxious, affect is congruent Suicidality/Homicidality: Patient denies having any homicidal ideation intent or plan. Denies any suicidal ideations intent or plan Perceptions: Patient denies any visual hallucinations and denies any auditory hallucinations Though content/process: There is no evidence of any delusional thought content and thought process is linear and goal-directed. [place]. Focused on obtaining controlled medications. Memory and concentration: AOX3, grossly intact for the purposes of this session Judgment and insight: poor, improving mildly IMPRESSIONS: Major depressive disorder without psychotic features suicide attempt Alcohol use disorder severe dependence methamphetamine use disorder severe cannabis use disorder nicotine dependence PLAN: -Patient is admitted under involuntary status to [facility] for stabilization of psychiatric symptoms and safety. Patient has not signed adult voluntary form and medication consent and is placed in patient's chart. A second certification was completed and along with petition will be filed for court. -Medications : Increased zoloft 150 mg daily for mood/anxiety, trazodone 100 mg qhs for insomnia/mood, naltrexone 50 mg daily for etoh cravings. last dose of librium 10 today then discontinue for etoh withdrawal. added buspar 10 mg tid prn for anxiety, added depakote 250 mg tid for mood stabilization. -Ativan and Haldol PRN for agitation/aggression -thiamine, MVM for etoh use -CIWA protocol with Ativan PRN for ETOH withdrawal, plan to discontinue tomorrow. -NRT - nicotine patch and nicorette gum -SW on board for discharge planning. Encourage patient to participate in groups to work on coping skills. Will await deferral and court date. likely discharge in 2-3 days to rehab vs home.
[2023-02-14] MEDS: SERTRALINE 50 MG TAB PO SCH (09:38)
[2023-02-14] MEDS: DIVALPROEX ER 250 MG TAB.ER.24H PO SCH ×2 (09:38→20:56)
[2023-02-14] MEDS: NALTREXONE HCL 50 MG TAB PO SCH (09:39)
[2023-02-14] MEDS: FOLIC ACID 1 MG TAB PO SCH (09:39)
[2023-02-14] MEDS: MULTIVITAMINS, THERA 1 EACH TAB PO SCH (09:39)
[2023-02-14] MEDS: SERTRALINE 100 MG TAB PO SCH (09:40)
[2023-02-14] MEDS: THIAMINE 100 MG TAB PO SCH (09:41)
[2023-02-14] MEDS: NICOTINE 21MG/24HR PATCH TRANSDERM SCH (09:42)
[2023-02-14] MEDS: ACETAMINOPHEN TAB 500 MG TAB PO PRN ×2 (09:43→16:43)
[2023-02-14] MEDS: hydrOXYzine pamoate 25 MG CAP PO PRN (16:41)
[2023-02-14] MEDS: traZODone HCL 100 MG TAB PO SCH (20:56)
[2023-02-15] MEDS: DIVALPROEX ER 250 MG TAB.ER.24H PO SCH ×2 (09:02→19:54)
[2023-02-15] MEDS: MULTIVITAMINS, THERA 1 EACH TAB PO SCH (09:02)
[2023-02-15] MEDS: NICOTINE 21MG/24HR PATCH TRANSDERM SCH (09:02)
[2023-02-15] MEDS: FOLIC ACID 1 MG TAB PO SCH (09:02)
[2023-02-15] MEDS: SERTRALINE 50 MG TAB PO SCH (09:03)
[2023-02-15] MEDS: THIAMINE 100 MG TAB PO SCH (09:03)
[2023-02-15] MEDS: NALTREXONE HCL 50 MG TAB PO SCH (09:03)
[2023-02-15] MEDS: hydrOXYzine pamoate 25 MG CAP PO PRN ×2 (09:06→19:53)
[2023-02-15] MEDS ORDERED: hydrOXYzine HCL 50 MG/ML 1 ML VIAL IM PRN (10:17)
--- NOTE | 2023-02-15 10:30 | P.PN ---
Progress Note - Text Progress Note Date: 02/15/23 Interval history: Patient was seen today laying in bed and was agreeable to speak with magnetic tape typewriter operator in the office. She states that she is still feeling fairly anxious during the day. Claims that she "doesn't know how to deal with it". She claims that the Vistaril did help a little bit however still not effective. Claims that her sleep has been on and off at this time. We spoke about other medication options to help with sleep and mood stabilization and she was agreeable to try Seroquel she is tried in the past and had good success with it. She continues to focus on controlled medications and was attempting to rationalize being put on stimulants for her concentration and anxiety. States that she is still having mood swings. She Has been going to some groups. She claims that she attempted to call the access line for rehab several times however did not get any answer yet due to the closing for the holiday. At this time she is denying any suicidal ideations, Denies any homicidal ideations. At this time she is denying any auditory or visual hallucinations. Denying any side effects from medications. Mental status examination: General Appearance: Patient appears to be fairly thin, improving eye contact, stated age is alert, directable, and cooperative, evasive and medication s eeking. Patient appears to have improving hygiene and grooming. Behavior: Patient is seated without any agitated behavior. medication seeking. superficial Speech: Patient's speech is fluent and nonpressured. [place], improving mildly Mood/Affect: Patient reports their mood is improving mildly however still anxious, affect is congruent and constricted Suicidality/Homicidality: Patient denies having any homicidal ideation intent or plan. Denies any suicidal ideations intent or plan Perceptions: Patient denies any visual hallucinations and denies any auditory hallucinations Though content/process: There is no evidence of any delusional thought content and thought process is linear and goal-directed. [place]. Focused on obtaining controlled medications. Memory and concentration: AOX3, grossly intact for the purposes of this session Judgment and insight: poor, improving mildly Impression: Major depressive disorder without psychotic features suicide attempt Alcohol use disorder severe dependence methamphetamine use disorder severe cannabis use disorder nicotine dependence PLAN: -Patient is admitted under involuntary status to [facility] for stabilization of psychiatric symptoms and safety. Patient has not signed adult voluntary form and medication consent and is placed in patient's chart. A second certification was completed and along with petition will be filed for court. -Medications : continue zoloft 150 mg daily for mood/anxiety, d/c trazodone and replace with seroquel 25 mg daily + 50 mg qhs for insomnia/mood, naltrexone 50 mg daily for etoh cravings. continue vistaril prn for anxiety. continue depakote 250 mg bid for mood stabilization -Ativan and Haldol PRN for agitation/aggression -thiamine, MVM for etoh use -NRT - nicotine patch and nicorette gum -SW on board for discharge planning. Encourage patient to participate in groups to work on coping skills. Will await deferral and court date. likely discharge in 2-3 days to rehab vs home. still awaiting rehab intake date.
[2023-02-15] MEDS: QUEtiapine 25 MG TAB PO SCH (11:09)
[2023-02-15] MEDS ORDERED: QUEtiapine 50 MG TAB PO SCH (21:00)
[2023-02-16 06:57] VITALS: BP 103/57; PULSE 52; RESP 14; TEMP 97.8
[2023-02-16] MEDS: NALTREXONE HCL 50 MG TAB PO SCH (08:51)
[2023-02-16] MEDS: QUEtiapine 25 MG TAB PO SCH (08:51)
[2023-02-16] MEDS: FOLIC ACID 1 MG TAB PO SCH (08:51)
[2023-02-16] MEDS: MULTIVITAMINS, THERA 1 EACH TAB PO SCH (08:51)
[2023-02-16] MEDS: SERTRALINE 50 MG TAB PO SCH (08:51)
[2023-02-16] MEDS: THIAMINE 100 MG TAB PO SCH (08:52)
[2023-02-16] MEDS: NICOTINE 21MG/24HR PATCH TRANSDERM SCH (08:52)
[2023-02-16] MEDS: DIVALPROEX ER 250 MG TAB.ER.24H PO SCH (08:52)
--- NOTE | 2023-02-16 11:28 | P.DS ---
Providers Date of admission: 02/10/23 04:27 Expected date of discharge: 02/16/23 Attending physician: Carlito Doarn MD Consults: 02/10/23 04:09 Consult Physician Routine Consulting Provider: Alberto Stone Consult Reason/Comments: h and p Do you want consulting provider notified?: Already Contacted Primary care physician: Luh Dickinson - Discharge Diagnosis(es) (1) Major depressive disorder without psychotic features Current Visit: Yes Status: Acute Priority: High (2) Suicide attempt Current Visit: Yes Status: Acute Priority: High (3) Alcohol use disorder, severe, dependence Current Visit: Yes Status: Acute Priority: High (4) Methamphetamine use disorder, severe Current Visit: Yes Status: Acute Priority: High (5) Cannabis use disorder, severe, dependence Current Visit: Yes Status: Acute Priority: Medium (6) Nicotine dependence Current Visit: Yes Status: Acute Priority: Low Hospital Course: Admission HPI: Admission note was completed by remote mortgage underwriter "Patient is a 47-year-old female, currently is homeless, is has 2 kids, 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 Patient presented to the hospital yesterday on a petition by police as patient apparently tried to jump into traffic and having thoughts of suicide. As per ER note patient was endorsing suicidal ideations, brought in by the [employer]ter. Patient was also intoxicated with alcohol. Her urine drug screen was positive f or THC. Patient apparently tried to walk in front of a bus and the police were called and escorted to the hospital. Patient was admitted involuntarily to the mental health unit, seen in her room and agreeable gag writer in the office today. Patient states that she just "lost it" and states that she has had several stressors lately. She claims that she is recently been homeless and living in the [facility]. States that she has been having a bad relationship with her son and daughter and claims that "they're not talking to me and will let me see my grandchildren" and states that this is due to her heavy drinking. She claims that they want her to go into rehab however she does not see a problem with it. She claims that she has been drinking about a 1.5 gallons of vodka or other alcohol per week. States that her anxiety and depression have been significantly elevated this past week. Claims that she is currently having some withdrawal symptoms including shaking and also anxiety. Claims that she has a history of withdrawal hallucinations. States that her sleep and appetite have been poor, claims that she has not been taking care of herself. She demonstrates very poor judgment and insight and poor frustration tolerance. Patient denies any current suicidal or homicidal ideations intent or plan. At this time patient denies any auditory or visual hallucinations. Patient denies any flight of ideas racing thoughts and increased in goal directed behavior. Patient admits to using alcohol as noted above, states that she has been to rehab once in the past. Claims that she also uses methamphetamine about 2 times a day for the past 7 years. Claims that she also uses nicotine products, marijuana frequently." Hospital course: Upon admission to the unit patient was admitted involuntarily on a petition and certificate and a second certificate was completed and faxed with the courts. Patient ended up signing a deferral with the estate attorney and agreeing to treatment. Patient got along well with other patients on the unit and followed unit protocol. Patient was compliant with the medications and denied any side effects throughout hospital course. Patient was started on Zoloft and increased her dose of 200 mg daily for mood/anxiety, Seroquel 75 mg daily at bedtime or a mood adjunct/insomnia, Depakote ER 500 mg daily at bedtime for mood stabilization, Vistaril when necessary for anxiety, naltrexone 50 mg daily for alcohol cravings. Patient spoke of her stressors and engaged in therapy both group and individual. Patient was also seen by medical team for history and physical exam. Patient was fairly focused on controlled medications while on the unit. Throughout the course of the hospitalization patient gradually improved with regards to mood, anxiety, suicidal thoughts, sleep and returned back to their baseline level of functioning. On the day of discharge patient denied any suicidal or homicidal ideations intent or plan denied any auditory or visual hallucinations. Patient endorsed wanting to live for her grand kids and her family. The patient denied any access to guns or weapons. Patient denied any paranoia and did not endorse any delusions. Patient does have a significant history of substance abuse and was counseled on abstaining from all substances including alcohol and marijuana. Patient was offered however declined inpatient substance-abuse rehab. Patient was approved to go to [facility] however declined this. Patient elected to do outpatient substance use treatment program through [facility]. Patient was also counseled on the medications and need for regular compliance and was encouraged to follow-up with their outpatient appointment for mental health and also for primary care. Patient elected to go back to the hotel that she was staying at and will continue outpatient [facility] follow up Mental status exam: General Appearance: Patient appears to be thin, stated age is alert, pleasant, and cooperative. Patient is in no acute distress and has improved hygiene and grooming Behavior: Patient is calmly seated without any agitated behavior. Speech: Patient's speech is fluent and nonpressured. Mood/Affect: Patient reports their mood is "good", affect is congruent Suicidality/Homicidality: Patient denies having any suicidal or homicidal ideation intent or plan. Perceptions: Patient denies any auditory or visual hallucinations. Though content/process: There is no evidence of any delusional thought content and thought process is linear and goal-directed. more future oriented. concrete Memory and concentration: AOX3, grossly intact for the purposes of this session. Can spell "WORLD" backwards correctly. Judgment and insight: chronically poor/impulsive, however has improved with guarded prognosis Impression: Major depressive disorder without psychotic features Suicide attempt Alcohol use disorder severe dependence Methamphetamine use disorder severe Cannabis use disorder Nicotine dependence Plan: -Continue with discharge today as patient has improved and stabilized psychiatrically and is not currently an imminent threat to herself and/or others. Patient will remain at chronically elevated risk for harm to self and/or others due to her impulsivity and polysubstance abuse. -Continue medications: Zoloft 200 mg daily for mood/anxiety, Seroquel 75 mg daily at bedtime for mood adjunct/insomnia, Depakote ER 500 mg daily at bedtime for mood stabilization, Vistaril 50 mg daily when necessary for anxiety, no checks and 50 mg daily for alcohol cravings. Patient will be given a 14 day supply of these medications with 1 refill. -Patient was counseled on the need for medication compliance and appropriate follow-up at mental health and also primary care for medical issues. Patient verbalized understanding and agreed. -Social work to help Dara patient's discharge today back to the hotel that she was staying at previously with outpatient [facility] follow-up. Social work also to arrange for patients follow up appointments with [facility] for psychiatric care along with follow up with primary care provider. -Patient counseled on abstaining from recreational drugs and marijuana and alcohol. Was informed/educated on the adverse effects on their physical and mental health. Patient verbally agreed and understood. Patient was offered substance abuse treatment however declined at this time. Patient was accepted to [facility] however declined going there at this time. -Patient was instructed to return to the hospital or seek immediate medical care if their psychiatric or medical symptoms do worsen or reoccur. Allergies Allergy/AdvReac Type Severity Reaction Status Date / Time aspirin Allergy Swelling Verified 02/09/23 22:35 ibuprofen Allergy Swelling Verified 02/09/23 22:35 Laboratory Results WBC 4.7 k/uL (3.8-10.6) 02/10/23 14:16 RBC 3.67 m/uL (3.80-5.40) L 02/10/23 14:16 Hgb 11.1 gm/dL (11.4-16.0) L 02/10/23 14:16 Hct 34.7 % (34.0-46.0) 02/10/23 14:16 MCV 94.4 fL (80.0-100.0) 02/10/23 14:16 MCH 30.1 pg (25.0-35.0) 02/10/23 14:16 MCHC 31.9 g/dL (31.0-37.0) 02/10/23 14:16 RDW 17.9 % (11.5-15.5) H 02/10/23 14:16 Plt Count 372 k/uL (150-450) 02/10/23 14:16 MPV 7.5 02/10/23 14:16 Neutrophils % 42 % 02/10/23 14:16 Lymphocytes % 45 % 02/10/23 14:16 Monocytes % 7 % 02/10/23 14:16 Eosinophils % 3 % 02/10/23 14:16 Basophils % 1 % 02/10/23 14:16 Neutrophils # 2.0 k/uL (1.3-7.7) 02/10/23 14:16 Lymphocytes # 2.1 k/uL (1.0-4.8) 02/10/23 14:16 Monocytes # 0.4 k/uL (0-1.0) 02/10/23 14:16 Eosinophils # 0.2 k/uL (0-0.7) 02/10/23 14:16 Basophils # 0.0 k/uL (0-0.2) 02/10/23 14:16 Hypochromasia Slight 02/10/23 14:16 Anisocytosis Slight 02/10/23 14:16 Sodium 135 mmol/L (137-145) L 02/10/23 14:08 Potassium 4.7 mmol/L (3.5-5.1) 02/10/23 14:08 Chloride 104 mmol/L (98-107) 02/10/23 14:08 Carbon Dioxide 24 mmol/L (22-30) 02/10/23 14:08 Anion Gap 7 mmol/L 02/10/23 14:08 BUN 16 mg/dL (7-17) 02/10/23 14:08 Creatinine 0.90 mg/dL (0.52-1.04) 02/10/23 14:08 Est GFR (CKD-EPI)AfAm 88 (>60 ml/min/1.73 sqM) 02/10/23 14:08 Est GFR (CKD-EPI)NonAf 76 (>60 ml/min/1.73 sqM) 02/10/23 14:08 Glucose 174 mg/dL (74-99) H 02/10/23 14:08 POC Glucose (mg/dL) 234 mg/dL (70-110) H 02/12/23 11:45 POC Glu Leather Belt Shaper ID Jonah Love 02/12/23 11:[address] Glu mg/dL 120 mg/dL 02/10/23 15:09 Hemoglobin A1c 5.8 % (<=6.0) 02/10/23 15:09 Calcium 9.7 mg/dL (8.4-10.2) 02/10/23 14:08 Total Bilirubin 0.6 mg/dL (0.2-1.3) 02/10/23 14:08 AST 30 U/L (14-36) 02/10/23 14:08 ALT 21 U/L (4-34) 02/10/23 14:08 Alkaline Phosphatase 93 U/L (38-126) 02/10/23 14:08 Total Protein 7.0 g/dL (6.3-8.2) 02/10/23 14:08 Albumin 4.1 g/dL (3.5-5.0) 02/10/23 14:08 Triglycerides 59.10 mg/dL (0.00-149.00) 02/10/23 14:08 Cholesterol 186.00 mg/dL (0.00-200.00) 02/10/23 14:08 LDL Cholesterol, Calc 66.2 mg/dL (0.0-131.0) 02/10/23 14:08 VLDL Cholesterol, Calc 11.82 mg/dL (5.00-40.00) 02/10/23 14:08 HDL Cholesterol 108.00 mg/dL (40.00-60.00) H 02/10/23 14:08 Cholesterol/HDL Ratio 1.72 Ratio 02/10/23 14:08 TSH 1.110 mIU/L (0.465-4.680) 02/10/23 14:08 HCG, Qual Not Detected 02/10/23 14:08 Urine Opiates Screen Not Detected (NotDetected) 02/09/23 19:00 Ur Oxycodone Screen Not Detected (NotDetected) 02/09/23 19:00 Urine Methadone Screen Not Detected (NotDetected) 02/09/23 19:00 Ur Propoxyphene Screen Not Detected (NotDetected) 02/09/23 19:00 Ur Barbiturates Screen Not Detected (NotDetected) 02/09/23 19:00 U Tricyclic Antidepress Not Detected (NotDetected) 02/09/23 19:00 Ur Phencyclidine Scrn Not Detected (NotDetected) 02/09/23 19:00 Ur Amphetamines Screen Not Detected (NotDetected) 02/09/23 19:00 U Methamphetamines Scrn Not Detected (NotDetected) 02/09/23 19:00 U Benzodiazepines Scrn Not Detected (NotDetected) 02/09/23 19:00 Urine Cocaine Screen Not Detected (NotDetected) 02/09/23 19:00 U Marijuana (THC) Screen Detected (NotDetected) H 02/09/23 19:00 Coronavirus (PCR) Not Detected (Not Detectd) 02/10/23 03:32 Vital Signs Temp 97.8 F 02/16/23 06:42 Pulse 52 L 02/16/23 06:42 Resp 14 02/16/23 06:42 BP 103/57 02/16/23 06:42 Pulse Ox 93 L 07/04/23 06:51 FiO2 Patient Condition at Discharge: Stable Plan - Discharge Summary Discharge Rx Participant: No New Discharge Prescriptions: New Folic Acid 1 mg PO DAILY tab Nicotine 21Mg/24Hr Patch [Habitrol] 1 patch TRANSDERM DAILY 14 Days #14 patch Multivitamins, Thera [Multivitamin (formulary)] 1 each PO DAILY 14 Days #14 tab Naltrexone HCl [Revia] 50 mg PO DAILY 14 Days #14 tab Acetaminophen Tab [Tylenol] 1,000 mg PO Q8HR PRN 14 Days #84 tab PRN Reason: Pain Divalproex ER [Depakote ER] 500 mg PO HS 14 Days #14 tab QUEtiapine [SEROquel] 75 mg PO HS 14 Days #42 tab hydrOXYzine pamoate [Vistaril] 50 mg PO DAILY PRN 14 Days #28 cap PRN Reason: Anxiety Sertraline [Zoloft] 200 mg PO DAILY 14 Days #28 tab Discharge Medication List Acetaminophen Tab [Tylenol] 1,000 mg PO Q8HR PRN 14 Days #84 tab 02/16/23 [Rx] Divalproex ER [Depakote ER] 500 mg PO HS 14 Days #14 tab 02/16/23 [Rx] Folic Acid 1 mg PO DAILY tab 02/16/23 [Rx] Multivitamins, Thera [Multivitamin (formulary)] 1 each PO DAILY 14 Days #14 tab 02/16/23 [Rx] Naltrexone HCl [Revia] 50 mg PO DAILY 14 Days #14 tab 02/16/23 [Rx] Nicotine 21Mg/24Hr Patch [Habitrol] 1 patch TRANSDERM DAILY 14 Days #14 patch 02/16/23 [Rx] QUEtiapine [SEROquel] 75 mg PO HS 14 Days #42 tab 02/16/23 [Rx] Sertraline [Zoloft] 200 mg PO DAILY 14 Days #28 tab 02/16/23 [Rx] hydrOXYzine pamoate [Vistaril] 50 mg PO DAILY PRN 14 Days #28 cap 02/16/23 [Rx] Follow up Appointment(s)/Referral(s): [facility] [Outside] - 02/22/23 9:00 am (with Liz Will need a referral for mental health services from primary care ) Luh Dickinson MD [Primary Care Provider] - 1-2 days Activity/Diet/Wound Care/Special Instructions: Avoid the use of street drugs and alcohol. Take all medications as prescribed. When you are in need of refills on your medications, please contact your medical provider and/or outpatient psychiatrist to have this done. Please go to scheduled outpatient appointments for aftercare treatment. If symptoms return or become worse, call the crisis line at and/or go to the nearest emergency room for evaluation. Discharge/Stand Alone Forms: AA Meetings Dist 22 & 24 - [facility] Discharge Disposition: OTHER INSTITUTION NOT DEFINED
== END 2023-02-16 12:15 | disposition home or self-care (01) | DRG 881 ==
LOC: EC 18:07 → 3MHU 02-10 04:27
PROVIDERS: ADMIT Psychiatry & Neurology Psychiatry; ATTEND Psychiatry & Neurology Psychiatry
DX: F32.9 Major depressive disorder, single episode, unspecified (principal); F10.239 Alcohol dependence with withdrawal, unspecified; F15.20 Other stimulant dependence, uncomplicated; F41.9 Anxiety disorder, unspecified; F12.20 Cannabis dependence, uncomplicated; G40.909 Epilepsy, unspecified, not intractable, without status epilepticus; M19.90 Unspecified osteoarthritis, unspecified site; G89.29 Other chronic pain; F17.210 Nicotine dependence, cigarettes, uncomplicated; M54.9 Dorsalgia, unspecified; Z20.822 Contact with and (suspected) exposure to COVID-19; G47.00 Insomnia, unspecified; T14.91XA Suicide attempt, initial encounter; Z59.00 Homelessness unspecified; Z76.5 Malingerer [conscious simulation]; Z79.899 Other long term (current) drug therapy; Z98.84 Bariatric surgery status; Z85.818 Personal history of malignant neoplasm of other sites of lip, oral cavity, and pharynx; Z63.5 Disruption of family by separation and divorce; Z88.6 Allergy status to analgesic agent
CPT/HCPCS: 80053; 80061; 80306; 82075; 83036; 84443; 84703; 85025; 87635; 93005; 99285

== ENCOUNTER 2023-03-11 00:06 | Observation (INO) | payer MEDICARE, OTHER ==
[2023-03-11] MEDS ORDERED: SODIUM CHLORIDE 0.9% 500 ML 500 ML IV STA (00:51)
[2023-03-11] MEDS ORDERED: SODIUM CHLORIDE 0.9% 1,000 ML IV STA ×2 (00:51→03:04)
--- NOTE | 2023-03-11 00:51 | ED ---
Headache HPI - General Chief Complaint: Headache Stated Complaint: Headache Time Seen by Provider: 03/11/23 00:09 Source: RN notes reviewed, old records reviewed Mode of arrival: EMS Limitations: no limitations - History of Present Illness Initial Comments: This is a 39-year-old female ER today. Patient presents today for evaluation of headache and not feeling well. Patient is significantly persistent headache here in the emergency department. Patient denies any trauma or injury. 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 Patient comes from [place] for not feeling well. MD Complaint: headache, "migraine", other (Generalized not feeling well) -: hour(s) Onset Description: gradual Location: right, left, frontal Severity: mild, moderate Severity scale (1-10): 5 Quality: throbbing Consistency: intermittent Improves With: nothing Worsens With: none Context: occurred at rest Associated Symptoms: nausea Other Symptoms: malaise Treatments Prior to Arrival: none - Related Data Home Medications Medication Instructions Recorded Confirmed Acetaminophen Tab [Tylenol] 650 mg PO QID PRN 03/11/23 03/11/23 Doxepin [SINEquan] 100 mg PO HS 03/11/23 03/11/23 Ibuprofen [Motrin Ib] 600 mg PO Q6H PRN 03/11/23 03/11/23 Multivitamins, Thera [Multivitamin 1 tab PO DAILY@61403/11/23 03/11/23 (formulary)] Naltrexone HCl [Revia] 50 mg PO DAILY@61403/11/23 03/11/23 Nicotine 21Mg/24Hr Patch [Habitrol] 1 patch TRANSDERM DAILY@61403/11/23 03/11/23 Sertraline [Zoloft] 200 mg PO DAILY@61403/11/23 03/11/23 Venlafaxine HCl [Effexor XR] 75 mg PO DAILY@61403/11/23 03/11/23 busPIRone HCl [Buspar] 10 mg PO DAILY@61403/11/23 03/11/23 traZODone HCL [Desyrel] 100 mg PO HS 03/11/23 03/11/23 Previous Rx's Medication Instructions Recorded Divalproex ER [Depakote ER] 500 mg PO HS 14 Days #14 tab 02/16/23 QUEtiapine [SEROquel] 75 mg PO HS 14 Days #42 tab 02/16/23 Prochlorperazine [Compazine] 10 mg PO Q6H PRN #20 tab 03/11/23 SUMAtriptan succinate [Imitrex] 50 mg PO DAILY PRN #20 tablet 03/11/23 Allergies Allergy/AdvReac Type Severity Reaction Status Date / Time aspirin Allergy Swelling Verified 03/12/23 22:46 Review of Systems ROS Statement: Those systems with pertinent positive or pertinent negative responses have been documented in the HPI. ROS Other: All systems not noted in ROS Statement are negative. Past Medical History Past Medical History: Cancer, Osteoarthritis (OA), Seizure Disorder Additional Past Medical History / Comment(s): HEAVY FLOW AND PELVIC PAIN WITH MENSCES. Chronic back pain. gum cancer, pancreatitis History of Any Multi-Drug Resistant Organisms: None Reported Past Surgical History: Section, Hernia Repair, Orthopedic Surgery, Tubal Ligation Additional Past Surgical History / Comment(s): ANXIETY INDUCED SEIZURES (LAST ONE ON 06/04/15). Gastric BYPASS. ORIF OF RIGHT ANKLE. RIGHT CARPAL TUNNEL. Past Anesthesia/Blood Transfusion Reactions: No Reported Reaction Past Psychological History: Anxiety Smoking Status: Former smoker, Vaper Past Alcohol Use History: Abuse Past Drug Use History: Cocaine, Heroin, Marijuana, Methamphetamine - Past Family History Father Family Medical History: Cancer Mother Family Medical History: Coronary Artery Disease (CAD) General Exam General appearance: alert, in no apparent distress Head exam: Present: atraumatic, normocephalic, normal inspection Eye exam: Present: normal appearance, PERRL, EOMI. Absent: scleral icterus, conjunctival injection, periorbital swelling ENT exam: Present: normal exam, mucous membranes moist Neck exam: Present: normal inspection. Absent: tenderness, meningismus, lymphadenopathy Respiratory exam: Present: normal lung sounds bilaterally. Absent: respiratory distress, wheezes, rales, rhonchi, stridor Cardiovascular Exam: Present: regular rate, normal rhythm, normal heart sounds. Absent: systolic murmur, diastolic murmur, rubs, gallop, clicks GI/Abdominal exam: Present: soft, normal bowel sounds. Absent: distended, tenderness, guarding, rebound, rigid Extremities exam: Present: normal inspection, full ROM, normal capillary refill. Absent: tenderness, pedal edema, joint swelling, calf tenderness Back exam: Present: normal inspection Neurological exam: Present: alert, oriented X3, CN II-XII intact Psychiatric exam: Present: normal affect, normal mood Skin exam: Present: warm, dry, intact, normal color. Absent: rash Course Vital Signs 03/11/23 03/11/23 03/11/23 01:30 02:28 02:56 Temperature 97.3 F L Pulse Rate 63 62 Respiratory 16 16 Rate Blood Pressure 88/50 82/51 82/45 O2 Sat by Pulse 98 96 Oximetry 03/11/23 03/11/23 03/11/23 03:07 04:06 05:19 Temperature Pulse Rate 58 L 58 L 60 Respiratory 16 16 Rate Blood Pressure 90/56 98/69 89/55 O2 Sat by Pulse 95 Oximetry 03/11/23 03/11/23 03/11/23 06:06 08:15 14:25 Temperature Pulse Rate 56 L 59 L 90 Respiratory 16 16 18 Rate Blood Pressure 96/63 92/52 132/78 O2 Sat by Pulse 97 97 100 Oximetry - Reevaluation(s) Reevaluation #1: 03/11/23 00:50 Medical records reviewed Reevaluation #2: 03/11/23 03:32 Patient's blood pressure improved with hydration here in the ER, patient symptoms still persist Reevaluation #3: 03/11/23 03:32 Patient informed of results and questions answered Reevaluation #4: 03/11/23 00:50 Was pt. sent in by a medical professional or institution (, PA, METAL WEIGHER, urgent care, hospital, or alf...) When possible be specific @ -no Did you speak to anyone other than the patient for history (EMS, parent, family, police, friend...)? What history was obtained from this source @ -no Did you review nursing and triage notes (agree or disagree)? Why? @ -agree Are old charts reviewed (outside hosp., previous admission, EMS record, old EKG, old radiological studies, urgent care reports/EKG's, alf records)? Report findings @ -yes Differential Diagnosis (chest pain, altered mental status, abdominal pain women, abdominal pain men, vaginal bleeding, weakness, fever, dyspnea, syncope, headache, dizziness, GI bleed, back pain, seizure, CVA, palpatations, mental health, musculoskeletal)? @ -prior EKG interpreted by me (3pts min.). @ -no X-rays interpreted by me (1pt min.). @ -no CT interpreted by me (1pt min.). @ -no U/S interpreted by me (1pt. min.). @ -no What testing was considered but not performed or refused? (CT, X-rays, U/S, labs)? Why? @ -none What meds were considered but not given or refused? Why? @ -none Did you discuss the management of the patient with other professionals (professionals i.e. , PA, METAL WEIGHER, lab, RT, psych nurse, executive secretary social welfare, ceramic tile mechanic, teacher, juvenile corrections officer, case loader operator)? Give summary @ -no Was smoking cessation discussed for >3mins.? @ -no Was critical care preformed (if so, how long)? @ -no Were there social determinants of health that impacted care today? How? (Homelessness, low income, unemployed, alcoholism, drug addiction, transportation, low edu. Level, literacy, decrease access to med. care, senior living, rehab)? @ -none Was there de-escalation of care discussed even if they declined (Discuss DNR or withdrawal of care, Hospice)? DNR status @ -no What co-morbidities impacted this encounter? (DM, HTN, Smoking, COPD, CAD, Cancer, CVA, ARF, Chemo, Hep., AIDS, mental health diagnosis, sleep apnea, morbid obesity)? @ -none Was patient admitted / discharged? Hospital course, mention meds given and route, prescriptions, significant lab abnormalities, going to OR and other pertinent info. @ - 39 female to be admitted for evaluation, patient has headache and anemia. Labile blood pressure little improving. Patient be admitted for recurrent hemoglobin evaluation Admitted Undiagnosed new problem with uncertain prognosis? @ -no Drug Therapy requiring intensive monitoring for toxicity (Heparin, Nitro, Insulin, Cardizem)? @ -no Were any procedures done? @ -no Diagnosis/symptom? @ -Anemia, headache, anxiety Acute, or Chronic, or Acute on Chronic? @ -Acute Uncomplicated (without systemic symptoms) or Complicated (systemic symptoms)? @ -Complicated Side effects of treatment? @ -no Exacerbation, Progression, or Severe Exacerbation? @ -exacerbation Poses a threat to life or bodily function? How? (Chest pain, [place], [place], pneumonia, PE, COPD, DKA, ARF, appy, cholecystitis, CVA, Diverticulitis, Homicidal, Suic idal, threat to staff... and all critical care pts) @ -yes anemia Reevaluation #5: 03/11/23 00:50 Differential Headache: Migraine, tension, cluster, carbon monoxide, central venous thrombosis, pension karma temporal arteritis, acute closure glaucoma, intercranial hemorrhage, mastoiditis, sinusitis, head injury, this is not meant to be an all-inclusive list. Differential Weakness: Hypoglycemia, shock, sepsis, hyponatremia, anemia, infection, WI, ETOH, adverse medicine reaction, overdose, stroke, this is not meant to be an all-inclusive list. - Consultations Consultation #1: Spoke with admitting physicians who agree to admit this patient Medical Decision Making - Medical Decision Making 39 female to be admitted for evaluation, patient has headache and anemia. Labile blood pressure little improving. Patient be admitted for recurrent hemoglobin evaluation - Lab Data Result diagrams: 03/11/23 01:26 03/11/23 01:26 Lab Results 03/11/23 03/11/23 Range/Units 01:26 01:26 WBC 4.4 (3.8-10.6) k/uL RBC 3.05 L (3.80-5.40) m/uL Hgb 9.1 L D (11.4-16.0) gm/dL Hct 27.6 L (34.0-46.0) % MCV 90.3 (80.0-100.0) fL MCH 29.9 (25.0-35.0) pg MCHC 33.1 (31.0-37.0) g/dL RDW 17.8 H (11.5-15.5) % Plt Count 206 (150-450) k/uL MPV 6.7 Neutrophils % (Manual) 27 % Lymphocytes % (Manual) 47 % Monocytes % (Manual) 12 % Eosinophils % (Manual) 13 % Basophils % (Manual) 1 % Neutrophils # (Manual) 1.19 L (1.3-7.7) k/uL Lymphocytes # (Manual) 2.07 (1.0-4.8) k/uL Monocytes # (Manual) 0.53 (0-1.0) k/uL Eosinophils # (Manual) 0.57 (0-0.7) k/uL Basophils # (Manual) 0.04 (0-0.2) k/uL Nucleated RBCs 0 (0-0) /100 WBC Manual Slide Review Performed Anisocytosis Slight Sodium 135 L (137-145) mmol/L Potassium 4.0 (3.5-5.1) mmol/L Chloride 105 (98-107) mmol/L Carbon Dioxide 26 (22-30) mmol/L Anion Gap 4 mmol/L BUN 19 H (7-17) mg/dL Creatinine 0.80 (0.52-1.04) mg/dL Est GFR (CKD-EPI)AfAm >90 (>60 ml/min/1.73 sqM) Est GFR (CKD-EPI)NonAf 88 (>60 ml/min/1.73 sqM) Glucose 98 (74-99) mg/dL Calcium 8.7 (8.4-10.2) mg/dL Phosphorus 4.5 (2.5-4.5) mg/dL Magnesium 1.9 (1.6-2.3) mg/dL Total Bilirubin 0.2 (0.2-1.3) mg/dL AST 23 (14-36) U/L ALT 20 (4-34) U/L Alkaline Phosphatase 63 (38-126) U/L Total Protein 6.1 L (6.3-8.2) g/dL Albumin 3.4 L (3.5-5.0) g/dL Disposition Clinical Impression: Acute anxiety, Dysmenorrhea, Migraine headache, Anemia Disposition: ADMITTED IP TO THIS HOSP Condition: Good Is patient prescribed a controlled substance at d/c from ED?: No Time of Disposition: 03:30
[2023-03-11] MEDS ORDERED: diphenhydrAMINE 50 MG/ML 1 ML VIAL IVP STA (00:52)
[2023-03-11] MEDS ORDERED: KETOROLAC 15 MG/ML 1 ML VIAL IVP STA (00:52)
[2023-03-11] MEDS ORDERED: PROCHLORPERAZINE INJ 10 MG/2 ML VIAL IVP STA (00:52)
[2023-03-11 01:32] VITALS: TEMP 97.3
[2023-03-11 01:49] LABS: ALT 20 U/L (4-34); AST 23 U/L (14-36); African American GFR (CKD) >90 (>60 ml/min/1.73 sqM); Albumin 3.4 g/dL (3.5-5.0); Alkaline Phosphatase 63 U/L (38-126); Anion Gap 4 mmol/L; Blood Urea Nitrogen 19 mg/dL (7-17); Calcium 8.7 mg/dL (8.4-10.2); Carbon Dioxide 26 mmol/L (22-30); Chloride 105 mmol/L (98-107); Glucose 98 mg/dL (74-99); Magnesium 1.9 mg/dL (1.6-2.3); Non-African American GFR(CKD) 88 (>60 ml/min/1.73 sqM); Phosphorus 4.5 mg/dL (2.5-4.5); Sodium 135 mmol/L (137-145); Total Bilirubin 0.2 mg/dL (0.2-1.3); Total Protein 6.1 g/dL (6.3-8.2)
[2023-03-11 02:15] LABS: Anisocytosis Slight; HCT 27.6 % (34.0-46.0); HGB 9.1 gm/dL (11.4-16.0); MCH 29.9 pg (25.0-35.0); MCHC 33.1 g/dL (31.0-37.0); MCV 90.3 fL (80.0-100.0); Mean Platelet Volume 6.7; Platelet Count 206 k/uL (150-450); RBC 3.05 m/uL (3.80-5.40); RDW 17.8 % (11.5-15.5); WBC 4.4 k/uL (3.8-10.6)
[2023-03-11] MEDS ORDERED: NALOXONE 0.4 MG/ML 1 ML VIAL IV PRN (02:32)
[2023-03-11] MEDS ORDERED: ONDANSETRON 4 MG/2 ML VIAL IVP PRN (02:58)
[2023-03-11 03:50] LABS: Basophils # (M) 0.04 k/uL (0-0.2); Eosinophils # (M) 0.57 k/uL (0-0.7); Lymphocytes # (M) 2.07 k/uL (1.0-4.8); Monocytes # (M) 0.53 k/uL (0-1.0); Neutrophils # (M) 1.19 k/uL (1.3-7.7); Neutrophils % (M) 27 %; Nucleated Red Blood Cells 0 /100 WBC (0-0); Total Cells Counted 100
[2023-03-11] MEDS ORDERED: SUMAtriptan succinate 50 MG TAB PO STA (11:21)
--- NOTE | 2023-03-11 12:04 | P.HPIM ---
History of Present Illness 39-year-old female came in with the comments of severe headache patient does have history of migraine. This feels like a typical migraine which improved with nonsteroidal anti-inflammatory medications patient does take Depakote at home. 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 Patient does have history of methamphetamine and heroine use. I do not see any hepatitis panel in our system. Patient is also anemic with hemoglobin of 9.1 although patient doesn't have any blood in the stools or dark stools. Patient has normocytic anemia patient last use of drugs present of January and is at the [facility]. REVIEW OF SYSTEMS: CONSTITUTIONAL: No fever, no malaise, no fatigue. HEENT: No recent visual problems or hearing problems. Denied any sore throat. CARDIOVASCULAR: No chest pain, orthopnea, PND, no palpitations, no syncope. PULMONARY: No shortness of breath, no cough, no hemoptysis. GASTROINTESTINAL: No diarrhea, no nausea, no vomiting, no abdominal pain. NEUROLOGICAL: no weakness, no numbness. HEMATOLOGICAL: Denies any bleeding or petechiae. GENITOURINARY: Denies any burning micturition, frequency, or urgency. MUSCULOSKELETAL/RHEUMATOLOGICAL: Denies any joint pain, swelling, or any muscle pain. ENDOCRINE: Denies any polyuria or polydipsia. The rest of the 14-point review of systems is negative. PHYSICAL EXAMINATION: GENERAL: The patient is alert and oriented x3, not in any acute distress. Well developed, well nourished. HEENT: Pupils are round and equally reacting to light. EOMI. No scleral icterus. No conjunctival pallor. Normocephalic, atraumatic. No pharyngeal erythema. No thyromegaly. CARDIOVASCULAR: S1 and S2 present. No murmurs, rubs, or gallops. PULMONARY: Chest is clear to auscultation, no wheezing or crackles. ABDOMEN: Soft, nontender, nondistended, normoactive bowel sounds. No palpable organomegaly. MUSCULOSKELETAL: No joint swelling or deformity. EXTREMITIES: No cyanosis, clubbing, or pedal edema. NEUROLOGICAL: Gross neurological examination did not reveal any focal deficits. SKIN: No rashes. Assessment and plan -Migraine headache: Improved now patient will be reviewed unit dose of sumatriptan will be discharged on as needed sumatriptan for headache, along with the Compazine for migraine headache and will lead to take Benadryl takes more than 2 doses of Compazine. Patient is already on Depakote. Patient will follow with neurology as an outpatient. -Anemia chronic anemia without any acute GI bleed further evaluation as an outpatient patient has normocytic anemia may have combined iron deficiency and folate deficiencies. Patient does have history of menometrorrhagia -History of heroine use with amphetamine, cocaine use: Patient will benefit from outpatient evaluation for chronic hep C -Seizure disorder -Possibility of bipolar disorder Patient will be discharged today Past Medical History Past Medical History: Cancer, Osteoarthritis (OA), Seizure Disorder Additional Past Medical History / Comment(s): HEAVY FLOW AND PELVIC PAIN WITH MENSCES. Chronic back pain. gum cancer, pancreatitis History of Any Multi-Drug Resistant Organisms: None Reported Past Surgical History: Section, Hernia Repair, Orthopedic Surgery, Tubal Ligation Additional Past Surgical History / Comment(s): ANXIETY INDUCED SEIZURES (LAST ONE ON 06/04/15). Gastric BYPASS. ORIF OF RIGHT ANKLE. RIGHT CARPAL TUNNEL. Past Anesthesia/Blood Transfusion Reactions: No Reported Reaction Past Psychological History: Anxiety Smoking Status: Former smoker, Vaper Past Alcohol Use History: Abuse Past Drug Use History: Cocaine, Heroin, Marijuana, Methamphetamine - Past Family History Father Family Medical History: Cancer Mother Family Medical History: Coronary Artery Disease (CAD) Medications and Allergies Home Medications Medication Instructions Recorded Confirmed Type Divalproex ER [Depakote ER] 500 mg PO HS 14 Days #14 tab 02/16/23 03/11/23 Rx QUEtiapine [SEROquel] 75 mg PO HS 14 Days #42 tab 02/16/23 03/11/23 Rx Acetaminophen Tab [Tylenol] 650 mg PO QID PRN 03/11/23 03/11/23 History Doxepin [SINEquan] 100 mg PO HS 03/11/23 03/11/23 History Ibuprofen [Motrin Ib] 600 mg PO Q6H PRN 03/11/23 03/11/23 History Multivitamins, Thera [Multivitamin 1 tab PO DAILY@61403/11/23 03/11/23 History (formulary)] Naltrexone HCl [Revia] 50 mg PO DAILY@15 03/11/23 03/11/23 History Nicotine 21Mg/24Hr Patch [Habitrol] 1 patch TRANSDERM DAILY@61403/11/23 03/11/23 History Prochlorperazine [Compazine] 10 mg PO Q6H PRN #30 tab 03/11/23 Rx SUMAtriptan succinate 50 mg PO DAILY PRN #20 tab 03/11/23 Rx Sertraline [Zoloft] 200 mg PO DAILY@61403/11/23 03/11/23 History Venlafaxine HCl [Effexor XR] 75 mg PO DAILY@61403/11/23 03/11/23 History busPIRone HCl [Buspar] 10 mg PO DAILY@61403/11/23 03/11/23 History traZODone HCL [Desyrel] 100 mg PO HS 03/11/23 03/11/23 History Allergies Allergy/AdvReac Type Severity Reaction Status Date / Time aspirin Allergy Swelling Verified 03/11/23 07:35 ibuprofen Allergy Swelling Verified 03/11/23 07:35 Physical Exam Vitals: Vital Signs Temp Pulse Resp BP Pulse Ox 03/11/23 08:15 59 L 16 92/52 97 03/11/23 06:06 56 L 16 96/63 97 03/11/23 05:19 60 16 89/55 95 03/11/23 04:06 58 L 16 98/69 03/11/23 03:07 58 L 90/56 03/11/23 02:56 82/45 03/11/23 02:28 62 16 82/51 96 03/11/23 01:30 97.3 F L 63 16 88/50 98 Intake and Output 03/10/23 03/11/23 03/11/23 22:59 06:59 14:59 Other: Weight 68.039 kg Results CBC & Chem 7: 03/11/23 01:26 03/11/23 01:26 Labs: Abnormal Lab Results - Last 24 Hours (Table) 03/11/23 03/11/23 Range/Units 01:26 01:26 RBC 3.05 L (3.80-5.40) m/uL Hgb 9.1 L D (11.4-16.0) gm/dL Hct 27.6 L (34.0-46.0) % RDW 17.8 H (11.5-15.5) % Neutrophils # (Manual) 1.19 L (1.3-7.7) k/uL Sodium 135 L (137-145) mmol/L BUN 19 H (7-17) mg/dL Total Protein 6.1 L (6.3-8.2) g/dL Albumin 3.4 L (3.5-5.0) g/dL
[2023-03-11 14:26] VITALS: BP 132/78; PULSE 90; RESP 18
== END 2023-03-11 16:00 | disposition home or self-care (01) ==
LOC: EC 00:06 → 6NMEDSUR 02:33
PROVIDERS: ADMIT Hospitalist; ATTEND Hospitalist
DX: G43.909 Migraine, unspecified, not intractable, without status migrainosus (principal); D64.9 Anemia, unspecified; N94.6 Dysmenorrhea, unspecified; G40.909 Epilepsy, unspecified, not intractable, without status epilepticus; F41.9 Anxiety disorder, unspecified; M19.90 Unspecified osteoarthritis, unspecified site; Z85.818 Personal history of malignant neoplasm of other sites of lip, oral cavity, and pharynx; G89.29 Other chronic pain; K85.90 Acute pancreatitis without necrosis or infection, unspecified; M54.9 Dorsalgia, unspecified; Z87.891 Personal history of nicotine dependence; Z79.899 Other long term (current) drug therapy; Z88.6 Allergy status to analgesic agent; Z82.49 Family history of ischemic heart disease and other diseases of the circulatory system; Z80.9 Family history of malignant neoplasm, unspecified
CPT/HCPCS: 96361; 96374; 96375; 99285; 36415; 80053; 83735; 84100; 85025; G0378; J0780; J1885

== ENCOUNTER 2023-03-12 22:42 | Emergency (ER) | payer MEDICARE, MEDICAID ==
[2023-03-12 22:46] VITALS: RESP 18
[2023-03-13 00:09] VITALS: BP 125/84; PULSE 94; TEMP 98.7
--- NOTE | 2023-03-13 01:02 | ED ---
Upper Extremity HPI - General Chief Complaint: Extremity Injury, Upper Stated Complaint: Right hand Swelling Time Seen by Provider: 03/13/23 00:04 Source: patient, RN notes reviewed Mode of arrival: ambulatory Limitations: no limitations - History of Present Illness Initial Comments: This is a 47-year-old female who presents to the emergency department for right hand pain. Patient is a resident at [facility] for polysubstance abuse. She got frustrated earlier today and punched a wall, causing pain to the right hand. Denies any fevers, chills, sore throat, cough, dyspnea, chest pain, palpitations, abdominal pain, nausea, vomiting, diarrhea, back pain, or headaches. - Related Data Home Medications Medication Instructions Recorded Confirmed Acetaminophen Tab [Tylenol] 650 mg PO QID PRN 03/11/23 03/11/23 Doxepin [SINEquan] 100 mg PO HS 03/11/23 03/11/23 Ibuprofen [Motrin Ib] 600 mg PO Q6H PRN 03/11/23 03/11/23 Multivitamins, Thera [Multivitamin 1 tab PO DAILY@61403/11/23 03/11/23 (formulary)] Naltrexone HCl [Revia] 50 mg PO DAILY@61403/11/23 03/11/23 Nicotine 21Mg/24Hr Patch [Habitrol] 1 patch TRANSDERM DAILY@61403/11/23 03/11/23 Sertraline [Zoloft] 200 mg PO DAILY@61403/11/23 03/11/23 Venlafaxine HCl [Effexor XR] 75 mg PO DAILY@61403/11/23 03/11/23 busPIRone HCl [Buspar] 10 mg PO DAILY@61403/11/23 03/11/23 traZODone HCL [Desyrel] 100 mg PO HS 03/11/23 03/11/23 Previous Rx's Medication Instructions Recorded Divalproex ER [Depakote ER] 500 mg PO HS 14 Days #14 tab 02/16/23 QUEtiapine [SEROquel] 75 mg PO HS 14 Days #42 tab 02/16/23 Prochlorperazine [Compazine] 10 mg PO Q6H PRN #20 tab 03/11/23 SUMAtriptan succinate [Imitrex] 50 mg PO DAILY PRN #20 tablet 03/11/23 Allergies Allergy/AdvReac Type Severity Reaction Status Date / Time aspirin Allergy Swelling Verified 03/12/23 22:46 Review of Systems ROS Statement: Those systems with pertinent positive or pertinent negative responses have been documented in the HPI. ROS Other: All systems not noted in ROS Statement are negative. Past Medical History Past Medical History: Cancer, Osteoarthritis (OA), Seizure Disorder Additional Past Medical History / Comment(s): HEAVY FLOW AND PELVIC PAIN WITH MENSCES. Chronic back pain. gum cancer, pancreatitis History of Any Multi-Drug Resistant Organisms: None Reported Past Surgical History: Section, Hernia Repair, Orthopedic Surgery, Tubal Ligation Additional Past Surgical History / Comment(s): ANXIETY INDUCED SEIZURES (LAST ONE ON 06/04/15). Gastric BYPASS. ORIF OF RIGHT ANKLE. RIGHT CARPAL TUNNEL. Past Anesthesia/Blood Transfusion Reactions: No Reported Reaction Past Psychological History: Anxiety Smoking Status: Former smoker, Vaper Past Alcohol Use History: Abuse Past Drug Use History: Cocaine, Heroin, Marijuana, Methamphetamine - Past Family History Father Family Medical History: Cancer Mother Family Medical History: Coronary Artery Disease (CAD) General Exam Limitations: no limitations General appearance: alert, in no apparent distress Head exam: Present: atraumatic, normocephalic, normal inspection Respiratory exam: Present: normal lung sounds bilaterally. Absent: respiratory distress, wheezes, rales, rhonchi, stridor Cardiovascular Exam: Present: regular rate, normal rhythm, normal heart sounds. Absent: systolic murmur, diastolic murmur, rubs, gallop, clicks Extremities exam: Present: other (Mild tenderness and swelling to the dorsal aspect of the right hand. Capillary refill less than 1 second.) Neurological exam: Present: alert, oriented X3, CN II-XII intact Psychiatric exam: Present: normal affect, normal mood Course Vital Signs 03/12/23 03/13/23 22:43 00:09 Temperature 98.4 F 98.7 F Pulse Rate 91 94 Respiratory 18 18 Rate Blood Pressure 182/110 125/84 O2 Sat by Pulse 95 97 Oximetry Medical Decision Making - Medical Decision Making This is a 47-year-old female who presents to the emergency department for a right hand injury. Was pt. sent in by a medical professional or institution? @ -[facility] Did you speak to anyone other than the patient for history? @ -No Did you review nursing and triage notes? @ -Yes, and I agree, it is accurate with regards to the patient's symptoms. Were old charts reviewed? @ -No Differential Diagnosis? @ -Differential Hand Injury: Fracture, dislocation, contusion, this is not meant to be an all-inclusive list. EKG interpreted by me (3pts min.)? @ -Not obtained X-rays interpreted by me (1pt min.)? @ -X-ray of the right hand obtained. My interpretation identifies no acute fractures. CT interpreted by me (1pt min.)? @ -Not obtained U/S interpreted by me (1pt. min.)? @ -Not obtained What testing was considered but not performed? (CT, X-rays, U/S, labs)? Why? @ -None What meds were considered but not given? Why? @ -None Did you discuss the management of the patient with other professionals? @ -No Did you reconcile home meds? @ -No Was smoking cessation discussed for >3mins.? @ -I discussed smoking cessation for greater than 3 minutes. The risk of smoking were discussed with the patient including but not limited to risks of cancer, stroke, coronary artery disease and COPD. Also discussed with patient were multiple methods of quitting smoking. Lastly we discussed the financial cost of smoking. Was critical care preformed (if so, how long)? @ -No Were there social determinants of health that impacted care today? How? (Homelessness, low income, unemployed, alcoholism, drug addiction, transportation, low edu. Level, literacy, decrease access to med. care, prison, rehab)? @ -No Was there de-escalation of care discussed even if they declined? (Discuss DNR or withdrawal of care, Hospice)? @ -No What co-morbidities impacted this encounter? (DM, HTN, Smoking, COPD, CAD, Cancer, CVA, Hep., AIDS, mental health diagnosis, sleep apnea, morbid obesity)? @ -None Was patient admitted / discharged? @ -Discharged. X-ray of the right hand obtained revealing no acute findings. Advised the patient that she likely has a contusion. She is instructed to alternate with ibuprofen and Tylenol as needed for pain relief and to apply ice for 15-20 minutes every 2-3 hours. Patient discharged back into the care of [facility]. Undiagnosed new problem with uncertain prognosis? @ -None Drug Therapy requiring intensive monitoring for toxicity (Heparin, Nitro, Insulin, Cardizem)? @ -None Were any procedures done? @ -None Diagnosis/symptom? @ -Right hand injury Acute, or Chronic, or Acute on Chronic? @ -Acute Uncomplicated (without systemic symptoms) or Complicated (systemic symptoms)? @ -Uncomplicated Side effects of treatment? @ -None Exacerbation, Progression, or Severe Exacerbation] @ -Not applicable Poses a threat to life or bodily function? @ -No Return precautions reviewed in depth, the patient is instructed to return to the emergency department with any new, worsening, or concerning symptoms. Patient verbalized understanding. This case was discussed in detail with the attending ED physician, Dr. Paulino. Presentation, findings, and treatment plan discussed in detail as well. - Radiology Data Radiology results: report reviewed, image reviewed Disposition Clinical Impression: Right hand pain, Injury of right hand, Nicotine dependence Disposition: HOME SELF-CARE Instructions (If sedation given, give patient instructions): Hand Sprain (ED), Crush Injury (ED) Additional Instructions: Return to the emergency department with any new, worsening, or concerning symptoms. Alternate with ibuprofen and Tylenol as needed for pain relief. Apply ice for 15-20 minutes every 2-3 hours. Follow up with your primary care joe cazares in 1-2 days. Is patient prescribed a controlled substance at d/c from ED?: No Referrals: None,Stated [Primary Care Provider] - 1-2 days
--- NOTE | 2023-03-13 01:16 | XR ---
EXAM: XR Right Wrist Complete, 3 or More Views CLINICAL HISTORY: ITS.REASON XR Reason: pain TECHNIQUE: Frontal, lateral and oblique views of the right wrist. COMPARISON: No relevant prior studies available. FINDINGS: Bones/joints: Moderate joint space narrowing of the first carpometacarpal joint. No fracture or dislocation. Soft tissues: Unremarkable. No radiopaque foreign body. IMPRESSION: No fracture or dislocation.
== END 2023-03-13 01:17 | disposition home or self-care (01) ==
LOC: EC 22:42
DX: S69.91XA Unspecified injury of right wrist, hand and finger(s), initial encounter (principal); F41.9 Anxiety disorder, unspecified; F17.290 Nicotine dependence, other tobacco product, uncomplicated; F12.90 Cannabis use, unspecified, uncomplicated; F11.90 Opioid use, unspecified, uncomplicated; F15.90 Other stimulant use, unspecified, uncomplicated; F14.90 Cocaine use, unspecified, uncomplicated; Z79.899 Other long term (current) drug therapy; Z88.6 Allergy status to analgesic agent; W22.01XA Walked into wall, initial encounter
CPT/HCPCS: 99283

== ENCOUNTER 2023-03-16 20:34 | Emergency (ER) | payer MEDICARE, OTHER ==
--- NOTE | 2023-03-16 21:58 | ED ---
Seizure HPI - General Chief Complaint: Seizure Stated Complaint: Seizure Time Seen by Provider: 03/16/23 21:57 Source: patient Mode of arrival: EMS Limitations: no limitations - History of Present Illness Initial Comments: 47-year-old female history of seizure disorder presenting with chief complaint of seizure-like activity. Patient takes Depakote for seizures, records indicate she is receiving this at [facility]. Patient is currently at [facility] for alcohol and "other drugs", she has been there for a week and 3 days. Records state that the patient appeared to be twitching for a few minutes and had to be lowered to the ground from a seated position. Patient is unsure if she hit her head but she is complaining of left-sided jaw pain and tightness. Patient's paperwork states that she did not hit her head. Patient states that she also hit her right elbow. She is having no chest pain, difficulty breathing, headache, vision or hearing changes, numbness, tingling, weakness, fever, chills, nausea, vomiting, abdominal pain. - Related Data Home Medications Medication Instructions Recorded Confirmed Acetaminophen Tab [Tylenol] 650 mg PO QID PRN 03/11/23 03/11/23 Doxepin [SINEquan] 100 mg PO HS 03/11/23 03/11/23 Ibuprofen [Motrin Ib] 600 mg PO Q6H PRN 03/11/23 03/11/23 Multivitamins, Thera [Multivitamin 1 tab PO DAILY@61403/11/23 03/11/23 (formulary)] Naltrexone HCl [Revia] 50 mg PO DAILY@61403/11/23 03/11/23 Nicotine 21Mg/24Hr Patch [Habitrol] 1 patch TRANSDERM DAILY@61403/11/23 03/11/23 Sertraline [Zoloft] 200 mg PO DAILY@61403/11/23 03/11/23 Venlafaxine HCl [Effexor XR] 75 mg PO DAILY@61403/11/23 03/11/23 busPIRone HCl [Buspar] 10 mg PO DAILY@61403/11/23 03/11/23 traZODone HCL [Desyrel] 100 mg PO 03/11/23 03/11/23 Previous Rx's Medication Instructions Recorded Divalproex ER [Depakote ER] 500 mg PO HS 14 Days #14 tab 02/16/23 QUEtiapine [SEROquel] 75 mg PO HS 14 Days #42 tab 02/16/23 Prochlorperazine [Compazine] 10 mg PO Q6H PRN #20 tab 03/11/23 SUMAtriptan succinate [Imitrex] 50 mg PO DAILY PRN #20 tablet 03/11/23 Allergies Allergy/AdvReac Type Severity Reaction Status Date / Time aspirin Allergy Swelling Verified 03/12/23 22:46 Review of Systems ROS Statement: Those systems with pertinent positive or pertinent negative responses have been documented in the HPI. ROS Other: All systems not noted in ROS Statement are negative. Past Medical History Past Medical History: Cancer, Osteoarthritis (OA), Seizure Disorder Additional Past Medical History / Comment(s): HEAVY FLOW AND PELVIC PAIN WITH MENSCES. Chronic back pain. gum cancer, pancreatitis History of Any Multi-Drug Resistant Organisms: None Reported Past Surgical History: Section, Hernia Repair, Orthopedic Surgery, Tubal Ligation Additional Past Surgical History / Comment(s): ANXIETY INDUCED SEIZURES (LAST ONE ON 06/04/15). Gastric BYPASS. ORIF OF RIGHT ANKLE. RIGHT CARPAL TUNNEL. Past Anesthesia/Blood Transfusion Reactions: No Reported Reaction Past Psychological History: Anxiety Smoking Status: Former smoker, Vaper Past Alcohol Use History: Abuse Past Drug Use History: Cocaine, Heroin, Marijuana, Methamphetamine - Past Family History Father Family Medical History: Cancer Mother Family Medical History: Coronary Artery Disease (CAD) General Exam - General Exam Comments Initial Comments: Visual Physical Exam Vital signs reviewed General: Well-appearing, nontoxic, no acute distress. Head: Normocephalic, atraumatic Eyes: PERRLA, EOMI ENT: Airway patent Chest: Nonlabored breathing Skin: No visual rash, normal skin tone Neuro: Alert and oriented 3 Musculoskeletal: No gross abnormalities Limitations: no limitations General appearance: alert, in no apparent distress Head exam: Present: atraumatic, normocephalic, normal inspection Eye exam: Present: normal appearance, PERRL, EOMI. Absent: scleral icterus, periorbital swelling Neck exam: Present: normal inspection, full ROM Respiratory exam: Present: normal lung sounds bilaterally. Absent: respiratory distress, wheezes, rales, rhonchi, stridor Cardiovascular Exam: Present: regular rate, normal rhythm, normal heart sounds. Absent: systolic murmur, diastolic murmur, rubs, gallop, clicks Right Elbow exam: Present: normal inspection, full ROM. Absent: tenderness, swelling, deformity Neurological exam: Present: alert, oriented X3, CN II-XII intact Psychiatric exam: Present: normal affect, normal mood Skin exam: Present: warm, dry, intact, normal color. Absent: rash Course Vital Signs 03/16/23 03/17/23 20:53 02:06 Temperature 98 F 97.8 F Pulse Rate 79 Pulse Rate [ 66 Pulse Oximetery ] Respiratory 18 16 Rate Blood Pressure 147/99 Blood Pressure 138/65 [Left Arm] O2 Sat by Pulse 98 Oximetry Medical Decision Making - Medical Decision Making Was pt. sent in by a medical professional or institution (YASIR Joseph, ELECTRICIAN HELPER, urgent care, hospital, or jail...) When possible be specific @ -No Did you speak to anyone other than the patient for history (EMS, parent, family, police, friend...)? What history was obtained from this source @ -No Did you review nursing and triage notes (agree or disagree)? Why? @ -I reviewed and agree with nursing and triage notes Were old charts reviewed (outside hosp., previous admission, EMS record, old EKG, old radiological studies, urgent care reports/EKG's, jail records)? Report findings @ -No old charts were reviewed Differential Diagnosis (chest pain, altered mental status, abdominal pain women, abdominal pain men, vaginal bleeding, weakness, fever, dyspnea, syncope, headache, dizziness, GI bleed, back pain, seizure, CVA, palpatations, mental health, musculoskeletal)? @ -MDM Differential Seizure: Recurrent seizure disorder, febrile seizure, alcohol withdrawal, stimulants, meningitis, encephalitis, intercranial hemorrhage, intracranial tumor, stroke, eclampsia, thyrotoxicosis, hypocalcemia, hyponatremia, hypernatremia, hypoma gnesemia, psychogenic this is not meant to be an all-inclusive list EKG interpreted by me (3pts min.). @ -As above X-rays interpreted by me (1pt min.). @ -Negative x-ray of the mandible CT interpreted by me (1pt min.). @ -None done U/S interpreted by me (1pt. min.). @ -None done What testing was considered but not performed or refused? (CT, X-rays, U/S, labs)? Why? @ -None What meds were considered but not given or refused? Why? @ -None Did you discuss the management of the patient with other professionals (professionals i.e. , PA, ELECTRICIAN HELPER, lab, RT, psych nurse, social work supervisor, rope silica machine operator, teacher, chief human resources officer, home health care case manager)? Give summary @ -No Was smoking cessation discussed for >3mins.? @ -No Was critical care preformed (if so, how long)? @ -No Were there social determinants of health that impacted care today? How? (Homelessness, low income, unemployed, alcoholism, drug addiction, transportation, low edu. Level, literacy, decrease access to med. care, care home, rehab)? @ -No Was there de-escalation of care discussed even if they declined (Discuss DNR or withdrawal of care, Hospice)? DNR status @ -No What co-morbidities impacted this encounter? (DM, HTN, Smoking, COPD, CAD, Cancer, CVA, ARF, Chemo, Hep., AIDS, mental health diagnosis, sleep apnea, morbid obesity)? @ -None Was patient admitted / discharged? Hospital course, mention meds given and route, prescriptions, significant lab abnormalities, going to OR and other pertinent info. @ -47-year-old female presenting from [facility] for seizure. Patient has history of seizure disorder. Currently at [facility] for alcohol and drug withdrawal, has been [facility] for week and 3 days. On physical examination patient states "all of my muscles ache". She is complaining of left-sided jaw tightness. Patient states that she hit her elbow during her seizure, she has full range of motion and no deformity or tenderness. Lab work requires no action. Negative mandible x-ray. EKG shows no changes from previous EKG. Patient is given Norflex for muscle tightness. On reassessment she reports improvement in her symptoms. She is resting comfortably. She will be discharged back to [facility]. Follow-up with PCP. Report back to ER with any new or worsening symptoms. Discussed return parameters and answered all questions. Patient conveyed verbal understanding and agreed to the plan. I discussed this case in detail with my attending Dr. Gaitan Undiagnosed new problem with uncertain prognosis? @ -No Drug Therapy requiring intensive monitoring for toxicity (Heparin, Nitro, Insulin, Cardizem)? @ -No Were any procedures done? @ -No Diagnosis/symptom? @ -Seizure Acute, or Chronic, or Acute on Chronic? @ -Acute on chronic Uncomplicated (without systemic symptoms) or Complicated (systemic symptoms)? @ -uncomplicated Side effects of treatment? @ -No Exacerbation, Progression, or Severe Exacerbation? @ -No Poses a threat to life or bodily function? How? (Chest pain, USA, AR, pneumonia, PE, COPD, DKA, ARF, appy, cholecystitis, CVA, Diverticulitis, Homicidal, Suicidal, threat to staff... and all critical care pts) @ -low likelihood - Lab Data Result diagrams: 03/16/23 22:31 03/16/23 22:31 Lab Results 03/16/23 03/16/23 03/16/23 Range/Units 22:29 22:31 22:31 WBC 5.5 (3.8-10.6) k/uL RBC 3.45 L (3.80-5.40) m/uL Hgb 10.3 L (11.4-16.0) gm/dL Hct 31.6 L (34.0-46.0) % MCV 91.4 (80.0-100.0) fL MCH 29.8 (25.0-35.0) pg MCHC 32.6 (31.0-37.0) g/dL RDW 18.1 H (11.5-15.5) % Plt Count 283 (150-450) k/uL MPV 6.9 Neutrophils % 34 % Lymphocytes % 44 % Monocytes % 6 % Eosinophils % 10 % Basophils % 1 % Neutrophils # 1.9 (1.3-7.7) k/uL Lymphocytes # 2.4 (1.0-4.8) k/uL Monocytes # 0.3 (0-1.0) k/uL Eosinophils # 0.5 (0-0.7) k/uL Basophils # 0.0 (0-0.2) k/uL Manual Slide Review Performed Anisocytosis Slight Ovalocytes Present Sodium 139 (137-145) mmol/L Potassium 4.4 (3.5-5.1) mmol/L Chloride 106 (98-107) mmol/L Carbon Dioxide 27 (22-30) mmol/L Anion Gap 6 mmol/L BUN 12 (7-17) mg/dL Creatinine 0.75 (0.52-1.04) mg/dL Est GFR (CKD-EPI)AfAm >90 (>60 ml/min/1.73 sqM) Est GFR (CKD-EPI)NonAf >90 (>60 ml/min/1.73 sqM) Glucose 90 (74-99) mg/dL Calcium 9.6 (8.4-10.2) mg/dL Magnesium 1.9 (1.6-2.3) mg/dL Total Bilirubin 0.3 (0.2-1.3) mg/dL AST 22 (14-36) U/L ALT 18 (4-34) U/L Alkaline Phosphatase 73 (38-126) U/L Total Protein 7.0 (6.3-8.2) g/dL Albumin 4.0 (3.5-5.0) g/dL Urine Color Light Yellow Urine Appearance Clear (Clear) Urine pH 7.0 (5.0-8.0) Ur Specific Malcolm 1.008 (1.001-1.035) Urine Protein Negative (Negative) Urine Glucose (UA) Negative (Negative) Urine Ketones Negative (Negative) Urine Blood Negative (Negative) Urine Nitrite Negative (Negative) Urine Bilirubin Negative (Negative) Urine Urobilinogen <2.0 (<2.0) mg/dL Ur Leukocyte Esterase Moderate H (Negative) Urine RBC <1 (0-5) /hpf Urine WBC 3 (0-5) /hpf Ur Squamous Epith Cells 2 (0-4) /hpf Urine Opiates Screen Not Detected (NotDetected) Ur Oxycodone Screen Not Detected (NotDetected) Urine Methadone Screen Not Detected (NotDetected) Ur Propoxyphene Screen Not Detected (NotDetected) Ur Barbiturates Screen Detected H (NotDetected) U Tricyclic Antidepress Not Detected (NotDetected) Ur Phencyclidine Scrn Not Detected (NotDetected) Ur Amphetamines Screen Not Detected (NotDetected) U Methamphetamines Scrn Not Detected (NotDetected) U Benzodiazepines Scrn Not Detected (NotDetected) Urine Cocaine Screen Not Detected (NotDetected) U Marijuana (THC) Screen Not Detected (NotDetected) - EKG Data -: EKG Interpreted by N[facility] EKG Comments: Sinus rhythm ventricular rate 66. MT interval 174. QRS 92. QT 389. QTc 403. No changes from previous EKG Disposition Clinical Impression: Seizure disorder Disposition: HOME SELF-CARE Condition: Fair Instructions (If sedation given, give patient instructions): Recurrent Seizures in Adults (ED) Additional Instructions: Follow-up with PCP. Report back to ER with any new or worsening symptoms. Is patient prescribed a controlled substance at d/c from ED?: No Referrals: None,Stated [Primary Care Provider] - 1-2 days Time of Disposition: 02:48
[2023-03-16 22:43] LABS: Appearance,Urine Clear (Clear); Bilirubin,Urine Negative (Negative); Blood,Urine Negative (Negative); Color,Urine Light Yellow; Glucose,Urine (UA) Negative (Negative); Ketones,Urine Negative (Negative); Leukocyte Esterase,Urine Moderate (Negative); Nitrite,Urine Negative (Negative); Protein,Urine Negative (Negative); RBC,Urine <1 /hpf (0-5); Specific Gravity,Urine 1.008 (1.001-1.035); Squamous Epithelial Cell,Urine 2 /hpf (0-4); Urobilinogen,Urine <2.0 mg/dL (<2.0); WBC,Urine 3 /hpf (0-5)
[2023-03-16 22:49] LABS: Anisocytosis Slight; Basophils % (A) 1 %; Eosinophils # (A) 0.5 k/uL (0-0.7); Eosinophils % (A) 10 %; HCT 31.6 % (34.0-46.0); HGB 10.3 gm/dL (11.4-16.0); Lymphocytes # (A) 2.4 k/uL (1.0-4.8); Lymphocytes % (A) 44 %; MCH 29.8 pg (25.0-35.0); MCHC 32.6 g/dL (31.0-37.0); MCV 91.4 fL (80.0-100.0); Mean Platelet Volume 6.9; Monocytes # (A) 0.3 k/uL (0-1.0); Monocytes % (A) 6 %; Neutrophils # (A) 1.9 k/uL (1.3-7.7); Neutrophils % (A) 34 %; Platelet Count 283 k/uL (150-450); RBC 3.45 m/uL (3.80-5.40); RDW 18.1 % (11.5-15.5); WBC 5.5 k/uL (3.8-10.6)
[2023-03-16 22:54] LABS: ALT 18 U/L (4-34); AST 22 U/L (14-36); African American GFR (CKD) >90 (>60 ml/min/1.73 sqM); Alkaline Phosphatase 73 U/L (38-126); Anion Gap 6 mmol/L; Blood Urea Nitrogen 12 mg/dL (7-17); Calcium 9.6 mg/dL (8.4-10.2); Carbon Dioxide 27 mmol/L (22-30); Chloride 106 mmol/L (98-107); Glucose 90 mg/dL (74-99); Magnesium 1.9 mg/dL (1.6-2.3); Non-African American GFR(CKD) >90 (>60 ml/min/1.73 sqM); Potassium 4.4 mmol/L (3.5-5.1); Sodium 139 mmol/L (137-145); Total Bilirubin 0.3 mg/dL (0.2-1.3)
[2023-03-16 23:08] LABS: Amphetamine Screen,Urine Not Detected (NotDetected); Barbiturate Screen,Urine Detected (NotDetected); Benzodiazepines Screen,Urine Not Detected (NotDetected); Cocaine Screen,Urine Not Detected (NotDetected); Methadone Screen, Urine Not Detected (NotDetected); Opiate Screen,Urine Not Detected (NotDetected); Oxycodone Screen, Urine Not Detected (NotDetected); Phencyclidine Screen,Urine Not Detected (NotDetected); Tricyclic Antidepressant,Urine Not Detected (NotDetected); Urn Cannabinoid Scrn Not Detected (NotDetected)
[2023-03-16 23:33] LABS: Ovalocytes Present
[2023-03-17] MEDS ORDERED: ORPHENADRINE 30 MG/ML 2 ML VIAL IVP STA (01:08)
[2023-03-17 02:08] VITALS: BP 138/65; PULSE 66; RESP 16; TEMP 97.8
--- NOTE | 2023-03-17 02:39 | XR ---
EXAM: XR Mandible Complete, 4 or More Views CLINICAL HISTORY: ITS.REASON XR Reason: pain L side TECHNIQUE: Frontal, oblique and lateral views of the mandible. COMPARISON: No relevant prior studies available. FINDINGS: Dental: No acute findings Bones/joints: No acute fracture. No dislocation. Soft tissues: Unremarkable. IMPRESSION: No acute findings
== END 2023-03-17 03:05 | disposition home or self-care (01) ==
LOC: EC 20:34
DX: G40.909 Epilepsy, unspecified, not intractable, without status epilepticus (principal); F41.9 Anxiety disorder, unspecified; F17.290 Nicotine dependence, other tobacco product, uncomplicated; F12.90 Cannabis use, unspecified, uncomplicated; F11.90 Opioid use, unspecified, uncomplicated; F14.90 Cocaine use, unspecified, uncomplicated; F15.90 Other stimulant use, unspecified, uncomplicated; Z79.899 Other long term (current) drug therapy; Z88.6 Allergy status to analgesic agent
CPT/HCPCS: 99285 ×2; 96374 ×2; 36415; 93005; 80164; 80053; 83735; 85025; 81001; 80306; 70110; J2360

== ENCOUNTER 2024-05-12 20:03 | Emergency (ER) | payer MEDICARE, OTHER ==
[2024-05-12 20:07] VITALS: RESP 16
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
[2024-05-12] MEDS: LIDOCAINE 1% INJ 10MG/ML (20 ML MDV) SQ ONE (20:16)
[2024-05-12] MEDS: DIPH,PERTUS(ACELL)TETVAC-LF 0.5 ML VIAL IM ONE (21:01)
[2024-05-12 21:10] VITALS: BP 142/81; PULSE 68; TEMP 98.4
== END 2024-05-12 21:10 | disposition home or self-care (01) ==
LOC: EC 20:03
CPT/HCPCS: 12002; 90471; 90715; 99283

== ENCOUNTER 2024-10-23 11:39 | Inpatient (IN) | payer MEDICARE, OTHER ==
[2024-10-23 12:32] LABS: Anisocytosis Slight; Basophils # (A) 0.1 k/uL (0-0.2); Basophils % (A) 0 %; Eosinophils # (A) 0.2 k/uL (0-0.7); Eosinophils % (A) 1 %; HCT 36.7 % (34.0-46.0); HGB 10.8 gm/dL (11.4-16.0); Hypochromasia Moderate; Lymphocytes % (A) 19 %; MCH 28.4 pg (25.0-35.0); MCHC 29.6 g/dL (31.0-37.0); MCV 96.1 fL (80.0-100.0); Macrocytosis Slight; Mean Platelet Volume 6.3; Monocytes # (A) 0.5 k/uL (0-1.0); Monocytes % (A) 3 %; Neutrophils % (A) 74 %; Platelet Count 574 k/uL (150-450); RBC 3.82 m/uL (3.80-5.40); RDW 17.3 % (11.5-15.5); WBC 16.3 k/uL (3.8-10.6)
[2024-10-23 12:46] LABS: INR 1.1 (<1.2); Partial Thromboplastin Time 22.7 sec (22.0-30.0); Prothrombin Time 11.8 sec (10.0-12.5)
[2024-10-23 12:51] LABS: ALT 12 U/L (4-34); AST 25 U/L (14-36); African American GFR (CKD) >90 (>60 ml/min/1.73 sqM); Albumin 3.2 g/dL (3.5-5.0); Alkaline Phosphatase 222 U/L (38-126); Anion Gap 13 mmol/L; Blood Urea Nitrogen 6 mg/dL (7-17); Calcium 8.9 mg/dL (8.4-10.2); Carbon Dioxide 21 mmol/L (22-30); Chloride 101 mmol/L (98-107); Glucose 164 mg/dL (74-99); Magnesium 1.8 mg/dL (1.6-2.3); Non-African American GFR(CKD) >90 (>60 ml/min/1.73 sqM); Potassium 3.5 mmol/L (3.5-5.1); Sodium 135 mmol/L (137-145); Total Bilirubin 0.3 mg/dL (0.2-1.3); Total Protein 6.2 g/dL (6.3-8.2)
--- NOTE | 2024-10-23 13:31 | XR ---
EXAMINATION TYPE: XR chest 2V DATE OF EXAM: 10/23/2024 CLINICAL INDICATION: Female, 49 years old with history of Chest Pain, TECHNIQUE: Frontal and lateral views of the chest are obtained. COMPARISON: Prior chest x-ray August 18, 2012 FINDINGS: There is no suspicious focal air space opacity, pleural effusion, or pneumothorax seen. T he cardiac silhouette size is stable and within normal limits. The osseous structures are intact. IMPRESSION: No acute process. [facility], , 10/23/2024 1:28 PM
--- NOTE | 2024-10-23 15:36 | ED ---
General Adult HPI - General Chief complaint: Chest Pain Stated complaint: chest pain Time Seen by Provider: 10/23/24 15:20 Source: patient Mode of arrival: ambulatory Limitations: no limitations - History of Present Illness Initial comments: Dictation was produced using [employer] dictation software. please excuse any grammatical, word or spelling errors. Chief Complaint: 49-year-old female with chest and abdominal pain History of Present Illness: 49-year-old female with past medical history of illicit drug use states that since Tuesday she has passed out fallen multiple times. She states that she also has abdominal pain and chest pain. States that the pain is sharp located to her left lower abdomen. Radiates up into her chest. States that chest pain is sharp. States that she passed out at least 5 times today. States that she has not had a bowel movement in a couple days. Denies any nausea. Requesting pain medications The ROS documented in this emergency department record has been reviewed and confirmed by me. Those systems with pertinent positive or negative responses have been documented in the HPI. All other systems are other negative and/or noncontributory. - Related Data Home Medications Medication Instructions Recorded Confirmed No Known Home Medications 10/23/24 10/23/24 Allergies Allergy/AdvReac Type Severity Reaction Status Date / Time aspirin Allergy Swelling Verified 10/23/24 16:48 ibuprofen [From Motrin] Allergy Swelling Verified 10/23/24 16:48 peanut Allergy Anaphylaxis Verified 10/23/24 16:48 Review of Systems ROS Statement: Those systems with pertinent positive or pertinent negative responses have been documented in the HPI. ROS Other: All systems not noted in ROS Statement are negative. Past Medical History Past Medical History: Cancer, Osteoarthritis (OA), Seizure Disorder Additional Past Medical History / Comment(s): HEAVY FLOW AND PELVIC PAIN WITH MENSCES. Chronic back pain. gum cancer, pancreatitis History of Any Multi-Drug Resistant Organisms: None Reported Past Surgical History: Section, Hernia Repair, Orthopedic Surgery, Tubal Ligation Additional Past Surgical History / Comment(s): ANXIETY INDUCED SEIZURES (LAST ONE ON 06/04/15). Gastric BYPASS. ORIF OF RIGHT ANKLE. RIGHT CARPAL TUNNEL. Past Anesthesia/Blood Transfusion Reactions: No Reported Reaction Past Psychological History: Anxiety Smoking Status: Former smoker, Vaper Past Alcohol Use History: Abuse Past Drug Use History: Cocaine, Heroin, Marijuana, Methamphetamine - Past Family History Father Family Medical History: Cancer Mother Family Medical History: Coronary Artery Disease (CAD) General Exam - General Exam Comments Initial Comments: PHYSICAL EXAM: General Impression: Alert and oriented x3, not in acute distress HEENT: Normocephalic atraumatic, extra-ocular movements intact, pupils equal and reactive to light bilaterally, mucous membranes moist. Cardiovascular: Heart regular rate and rhythm Chest: Able to complete full sentences, no retractions, no tachypnea Abdomen: abdomen soft, diffuse palpatory tenderness, non-distended, no organomegaly Musculoskeletal: Pulses present and equal in all extremities, no peripheral edema Motor: no focal deficits noted Neurological: CN II-XII grossly intact, no focal motor or sensory deficits noted Skin: Intact with no visualized rashes Psych: Normal affect and mood Limitations: no limitations Course Vital Signs 10/23/24 11:44 Temperature 97.6 F Pulse Rate 122 H Respiratory 22 Rate Blood Pressure 150/102 O2 Sat by Pulse 95 Oximetry Medical Decision Making - Medical Decision Making Was pt. sent in by a medical professional or institution (Dr. PA, SIGNALS INTELLIGENCE ANALYST, urgent care, hospital, or half-way...) When possible be specific @ -No Did you speak to anyone other than the patient for history (EMS, parent, family, police, friend...)? What history was obtained from this source @ -No Did you review nursing and triage notes (agree or disagree)? Why? @ -I reviewed and agree with nursing and triage notes Were old charts reviewed (outside hosp., previous admission, EMS record, old EKG, old radiological studies, urgent care reports/EKG's, half-way records)? Report findings @ -No old charts were reviewed Differential Diagnosis (chest pain, altered mental status, abdominal pain women, abdominal pain men, vaginal bleeding, musculoskeletal, weakness, fever, dyspnea, syncope, headache, dizziness, GI bleed, back pain, seizure, CVA, palpatations, mental health)? @ -Differential Abdominal Pain Women: Appendicitis, Cholecystitis, diverticulosis, ischemic bowel, pancreatitis, hepatitis, UTI, gastroenteritis, AAA, incarcerated hernia, bowel obstruction, constipation, inflammatory bowel, hepatitis, peptic ulcer disease, splenic infarction, perforated viscus, vulvitis, ovarian torsion, PID, kidney stone, placenta abruption, this is not meant to be an all-inclusive list EKG interpreted by me (3pts min.). @ - X-rays interpreted by me (1pt min.). @ -X-ray is nonacute CT interpreted by me (1pt min.). @ -CT chest abdomen pelvis obtained due to chest and abdominal symptoms. CT shows loculated fluid collection left upper quadrant, portal venous thrombus U/S interpreted by me (1pt. min.). @ -None done What testing was considered but not performed or refused? (CT, X-rays, U/S, labs)? Why? @ -None What meds were considered but not given or refused? Why? @ -None Was smoking cessation discussed for >3mins.? @ -No Were there social determinants of health that impacted care today? How? (Homelessness, low income, unemployed, alcoholism, drug addiction, transportation, low edu. Level, literacy, decrease access to med. care, [facility], rehab)? @ -No Was there de-escalation of care discussed even if they declined (Discuss DNR or withdrawal of care, Hospice)? DNR status @ -No What co-morbidities impacted this encounter? (DM, HTN, Smoking, COPD, CAD, Cancer, CVA, ARF, Chemo, Hep., AIDS, mental health diagnosis, sleep apnea, morbid obesity)? @ -None Was patient admitted / discharged? Hospital course, mention meds given and route, prescriptions, significant lab abnormalities, going to OR and other perti nent info. @ -49-year-old female presents to the emergency department chest and abdominal pain. Patient's pain is diffuse vital signs upon arrival are within acceptable limits. Patient well-appearing at the bedside. Leukocytosis 16.3. Rest of labs within acceptable limits. Pending lipase level. CT chest and pelvis obtained showing portal venous thrombus along with unclear fluid collection in the left abdomen. Patient started on heparin will be admitted with consultation to general surgery and vascular surgery. Did you discuss the management of the patient with other professionals (prof ca i.e. , PA, SIGNALS INTELLIGENCE ANALYST, lab, RT, psych nurse, socially responsible investment adviser, pig farmer, teacher, ict customer support officer, case consultant)? Give summary @ -Case discussed with hospitalist for admission Was critical care preformed (if so, how long)? @ -Yes, 33 minutes Undiagnosed new problem with uncertain prognosis? @ -No Drug Therapy requiring intensive monitoring for toxicity (Heparin, Nitro, Insulin, Cardizem)? @ -No Were any procedures done? @ -No Diagnosis/symptom? Acute, or Chronic, or Acute on Chronic? Uncomplicated (without systemic symptoms) or Complicated (systemic symptoms)? @ -Portal vein thrombosis, abdominal cyst of unclear origin Side effects of treatment? @ -No Exacerbation, Progression, or Severe Exacerbation? @ -No Poses a threat to life or bodily function? How? (Chest pain, [place], [place], pneumonia, PE, COPD, DKA, ARF, appy, cholecystitis, CVA, Diverticulitis, Homicidal, Suicidal, threat to staff... and all critical care pts) @ -yes - Lab Data Result diagrams: 10/23/24 12:19 10/23/24 12:19 Lab Results 10/23/24 10/23/24 10/23/24 Range/Units 12:19 12:19 12:19 WBC 16.3 H (3.8-10.6) k/uL RBC 3.82 (3.80-5.40) m/uL Hgb 10.8 L (11.4-16.0) gm/dL Hct 36.7 (34.0-46.0) % MCV 96.1 (80.0-100.0) fL MCH 28.4 (25.0-35.0) pg MCHC 29.6 L (31.0-37.0) g/dL RDW 17.3 H (11.5-15.5) % Plt Count 574 H (150-450) k/uL MPV 6.3 Neutrophils % 74 % Lymphocytes % 19 % Monocytes % 3 % Eosinophils % 1 % Basophils % 0 % Neutrophils # 12.0 H (1.3-7.7) k/uL Lymphocytes # 3.0 (1.0-4.8) k/uL Monocytes # 0.5 (0-1.0) k/uL Eosinophils # 0.2 (0-0.7) k/uL Basophils # 0.1 (0-0.2) k/uL Hypochromasia Moderate Anisocytosis Slight Macrocytosis Slight PT 11.8 (10.0-12.5) sec INR 1.1 (<1.2) APTT 22.7 (22.0-30.0) sec Sodium 135 L (137-145) mmol/L Potassium 3.5 (3.5-5.1) mmol/L Chloride 101 (98-107) mmol/L Carbon Dioxide 21 L (22-30) mmol/L Anion Gap 13 mmol/L BUN 6 L (7-17) mg/dL Creatinine 0.59 (0.52-1.04) mg/dL Est GFR (CKD-EPI)AfAm >90 (>60 ml/min/1.73 sqM) Est GFR (CKD-EPI)NonAf >90 (>60 ml/min/1.73 sqM) Glucose 164 H (74-99) mg/dL Calcium 8.9 (8.4-10.2) mg/dL Magnesium 1.8 (1.6-2.3) mg/dL Total Bilirubin 0.3 (0.2-1.3) mg/dL AST 25 (14-36) U/L ALT 12 (4-34) U/L Alkaline Phosphatase 222 H (38-126) U/L Troponin I (0.000-0.034) ng/mL Total Protein 6.2 L (6.3-8.2) g/dL Albumin 3.2 L (3.5-5.0) g/dL 10/23/24 Range/Units 12:19 WBC (3.8-10.6) k/uL RBC (3.80-5.40) m/uL Hgb (11.4-16.0) gm/dL Hct (34.0-46.0) % MCV (80.0-100.0) fL MCH (25.0-35.0) pg MCHC (31.0-37.0) g/dL RDW (11.5-15.5) % Plt Count (150-450) k/uL MPV Neutrophils % % Lymphocytes % % Monocytes % % Eosinophils % % Basophils % % Neutrophils # (1.3-7.7) k/uL Lymphocytes # (1.0-4.8) k/uL Monocytes # (0-1.0) k/uL Eosinophils # (0-0.7) k/uL Basophils # (0-0.2) k/uL Hypochromasia Anisocytosis Macrocytosis PT (10.0-12.5) sec INR (<1.2) APTT (22.0-30.0) sec Sodium (137-145) mmol/L Potassium (3.5-5.1) mmol/L Chloride (98-107) mmol/L Carbon Dioxide (22-30) mmol/L Anion Gap mmol/L BUN (7-17) mg/dL Creatinine (0.52-1.04) mg/dL Est GFR (CKD-EPI)AfAm (>60 ml/min/1.73 sqM) Est GFR (CKD-EPI)NonAf (>60 ml/min/1.73 sqM) Glucose (74-99) mg/dL Calcium (8.4-10.2) mg/dL Magnesium (1.6-2.3) mg/dL Total Bilirubin (0.2-1.3) mg/dL AST (14-36) U/L ALT (4-34) U/L Alkaline Phosphatase (38-126) U/L Troponin I <0.012 (0.000-0.034) ng/mL Total Protein (6.3-8.2) g/dL Albumin (3.5-5.0) g/dL Disposition Clinical Impression: Portal vein thrombosis Disposition: ADMITTED IP TO THIS [facility] Condition: Serious Referrals: None,Stated [Primary Care Provider] - 1-2 days Decision Time: 18:58
[2024-10-23] MEDS: HYDROmorphone 1 MG/ML 1 ML SYRINGE IVP STA (16:18)
--- NOTE | 2024-10-23 18:22 | CT ---
EXAMINATION TYPE: CT ChestAbdPelvis w con DATE OF EXAM: 10/23/2024 5:28 PM COMPARISON: 01/24/2023 CLINICAL INDICATION: Female, 49 years old with history of chest abdominal pain; PHH, left chest/arm p ain and RUQ pain x4 days Technique: CT ChestAbdPelvis w con; Multiple axial images were obtained. Two-dimensional coronal and sagittal reconstructions were obtained. Contrast used:100 mL of Isovue 300 with IV Contrast, (None if empty) Oral contrast used: without Oral Contrast CT DLP: 1056.6 mGycm, Automated exposure control for dose reduction was used. Findings: CHEST: LUNGS/ PLEURA: No focal consolidation, pneumothorax or pleural effusion. AIRWAY: Patent and unremarkable. HEART: Size within normal limits. No significant coronary artery calcifications. MEDIASTINUM: No gross evidence of adenopathy. VASCULATURE: No aortic aneurysm. MUSCULOSKELETAL: No acute osseous abnormalities. SOFT TISSUES/LYMPH NODES: Unremarkable. LOWER NECK: No significant findings. ABDOMEN: ABDOMEN LIVER: Unremarkable GALLBLADDER AND BILE DUCTS: The gallbladder is surgically absent. PANCREAS: Unremarkable. SPLEEN: Unremarkable. ADRENAL GLANDS: Unremarkable. KIDNEYS AND URETERS: No evidence of hydronephrosis or renal calculus. The ureters are unremarkable. PELVIS BLADDER: Unremarkable REPRODUCTIVE: The uterus is surgically absent. ABDOMEN & PELVIS STOMACH AND BOWEL: No evidence of bowel obstruction. There is a fluid collection thought to be within the large bowel wall measuring 6.0 x 4.7 x 7.0 cm new from prior. Series 201 image 50. Additional fl uid collection extending at least 8.0 x 2.9 x 3.6 cm extends towards the pancreatic tail into the lef t upper quadrant. Postsurgical changes are present of the bowel. There is mild wall thickening of the colon in this region. Small hiatal hernia present. PERITONEUM/RETROPERITONEUM: No evidence of pneumoperitoneum. VASCULATURE: No evidence of aortic aneurysm. Filling defect within the main portal vein compatible wi th probable thrombus. MUSCULOSKELETAL: No acute osseous abnormalities LYMPH NODES: No gross evidence for lymphadenopathy. SOFT TISSUE/ABDOMINAL WALL: Unremarkable IMPRESSION: 1. Loculated fluid collections in the left upper quadrant thought to be extending towards the pancre as. Correlate with serum lipase for pancreatitis. 2. Additional fluid collection may be adjacent to or within the wall of the left upper quadrant colo n. There is mild colonic wall thickening unclear if this is reactive or the cause of the fluid collec tion which may be in the wall itself persists adjacent to the wall. Short-term follow-up in 6 months after resolution of the symptoms is recommended to ensure resolution of wall thickening. 3. Portal vein filling defect suggestive of thrombus. 4. Hepatic steatosis. 5. Small hiatal hernia. 6. Postsurgical changes to the stomach and bowel likely representing gastric bypass. Correlate with history of surgery. 7. No evidence for acute thoracic process. [facility], , 10/23/2024 6:19 PM
[2024-10-23] MEDS ORDERED: HEPARIN SODIUM 1,000 UN/ML (10ML VL) IV PRN (18:38)
[2024-10-23] MEDS ORDERED: NALOXONE 0.4 MG/ML 1 ML VIAL IV PRN (18:56)
[2024-10-23] MEDS: HEPARIN SODIUM 1,000 UN/ML (10ML VL) IV ONE (19:59)
--- NOTE | 2024-10-23 20:49 | CT ---
EXAMINATION TYPE: CT brain wo con DATE OF EXAM: 10/23/2024 8:34 PM COMPARISON: 04/28/2020. CLINICAL INDICATION: Female, 49 years old with history of head injury 5 days ago, pre heparin, head i njury 5 days ago, pre heparin, pain TECHNIQUE: Brain: Axial CT images of the brain were obtained with coronal and sagittal reformats created and rev iewed. Contrast used: None. Oral contrast used: None. CT DLP: 1098.4 mGycm, Automated exposure control for dose reduction was used. FINDINGS: Brain: Extra-axial spaces: No abnormal extra-axial fluid collections. Ventricular system: Within normal limits Cerebral parenchyma: No acute intraparenchymal hemorrhage or mass effect. The guzman-white junction is well differentiated. Cerebellum: Unremarkable. Similar left anterior cerebellar CSF attenuating lesion possibly prior inju ry versus arachnoid cyst there is prominent sulci. Mass effect: No evidence of midline shift. Intracranial vasculature: unremarkable Soft tissues: Normal. Calvarium/osseous structures: No depressed skull fracture. Paranasal sinuses and mastoid air cells: Mild scattered paranasal sinus disease. Visualized orbits: Orbital contents are intact. IMPRESSION: 1. No acute intracranial process. 2. Remote left cerebellar injury suggested similar to prior versus arachnoid cyst versus prominent s ulci. [facility], , 10/23/2024 8:47 PM
[2024-10-23] MEDS: HEPARIN SOD,PORK IN 0.45% NACL 25,000 UNIT in 0.45% NACL 1 250ML.BAG IV SCH (22:10)
[2024-10-23] MEDS: HYDROmorphone 1 MG/ML 1 ML SYRINGE IVP PRN (22:35)
--- NOTE | 2024-10-24 09:19 | P.GSCN ---
History of Present Illness Consult date: 10/24/24 Reason for Consult: Portal vein thrombus Requesting physician: Lionel Lugo History of present illness: This is a pleasant 49-year-old female who presented to the emergency department yesterday with complaints of left-sided pain along her rib cage and under her left breast, her left lower abdomen which increases with coughing, she taking a deep breath or movement. She states that 4 to 5 days ago she started feeling her heart race states then she passed out and fell was down for 4 to 5 seconds. States that she fell on her left side and she has had pain since then. Past medical history includes alcohol pancreatitis, gum cancer, gastric bypass and seizure disorder. History also includes illicit drug use including cocaine marijuana and methamphetamines as well as alcohol abuse. States she quit drinking and drug use about a year ago. Prior to that heavy alcohol abuse up to a gallon a day. She had a CT of the chest abdomen and pelvis with contrast reporting Dr. Giordano. EMMA: [id number] portal vein filling defect suggestive of thrombus amongst other things. Vascular surgery was consulted for portal vein thrombus. Patient denies any history of blood clots in the past. States her father has had history of blood clots. Denies any knowledge of any clotting disorders. She does state that in 2008 she had a brain bleed secondary to a back injection for chronic back pain. She currently denies any shortness of breath, but states that she has some chest pain or feeling of racing heart. Patient states her last bowel movement was about a week ago. She denies any pain in her lower extremities. Review of Systems A 14 point review systems was completed all pertinent positives and negatives as stated in the HPI. Past Medical History Past Medical History: Cancer, Osteoarthritis (OA), Seizure Disorder Additional Past Medical History / Comment(s): HEAVY FLOW AND PELVIC PAIN WITH MENSCES. Chronic back pain.gum CA pancreatitis 2009, [place] in helicopter going to [facility] after Brain surgery in 2012 History of Any Multi-Drug Resistant Organisms: None Reported Past Surgical History: Section, Hernia Repair, Orthopedic Surgery, Tubal Ligation Additional Past Surgical History / Comment(s): ANXIETY INDUCED SEIZURES (LAST ONE ON 06/04/15). Gastric BYPASS. ORIF OF RIGHT ANKLE. RIGHT CARPAL TUNNEL. Brain Surgery @ [facility] Past Anesthesia/Blood Transfusion Reactions: No Reported Reaction Smoking Status: Former smoker, Vaper - Past Family History Father Family Medical History: Cancer Mother Family Medical History: Coronary Artery Disease (CAD) Medications and Allergies Home Medications Medication Instructions Recorded Confirmed Type No Known Home Medications 10/23/24 10/23/24 History Allergies Allergy/AdvReac Type Severity Reaction Status Date / Time aspirin Allergy Swelling Verified 10/23/24 16:48 ibuprofen [From Motrin] Allergy Swelling Verified 10/23/24 16:48 peanut Allergy Anaphylaxis Verified 10/23/24 16:48 Surgical - Exam Vital Signs Temp Pulse Resp BP Pulse Ox 97.6 F 122 H 22 150/102 95 10/23/24 11:44 10/23/24 11:44 10/23/24 11:44 10/23/24 11:44 10/23/24 11:44 General appearance: The patient is alert, oriented, appears in no acute distress. HET: Head is normocephalic and atraumatic. Pupils are equal and reactive. Neck: Supple. Heart: Regular. Lungs: Equal expansion, normal respiratory effort. Abdomen: Soft, tender to palpation, left lower quadrant, left upper quadrant under breast and along rib cage and flank, nondistended. Extremities: Normal skin color and turgor. Palpable femoral and DP pulses. Good capillary refill. Lower extremities warm and dry. Neurological: No focal deficits. Strength and sensation are grossly intact. Results - Labs 10/23/24 12:19 10/23/24 12:19 Abnormal Lab Results - Last 24 Hours (Table) 10/23/24 10/23/24 10/24/24 Range/Units 12:19 12:19 04:02 WBC 16.3 H (3.8-10.6) k/uL Hgb 10.8 L (11.4-16.0) gm/dL MCHC 29.6 L (31.0-37.0) g/dL RDW 17.3 H (11.5-15.5) % Plt Count 574 H (150-450) k/uL Neutrophils # 12.0 H (1.3-7.7) k/uL APTT 45.6 H (22.0-30.0) sec Sodium 135 L (137-145) mmol/L Carbon Dioxide 21 L (22-30) mmol/L BUN 6 L (7-17) mg/dL Glucose 164 H (74-99) mg/dL Alkaline Phosphatase 222 H (38-126) U/L Total Protein 6.2 L (6.3-8.2) g/dL Albumin 3.2 L (3.5-5.0) g/dL Diabetes panel 10/23/24 Range/Units 12:19 Sodium 135 L (137-145) mmol/L Potassium 3.5 (3.5-5.1) mmol/L Chloride 101 (98-107) mmol/L Carbon Dioxide 21 L (22-30) mmol/L BUN 6 L (7-17) mg/dL Creatinine 0.59 (0.52-1.04) mg/dL Glucose 164 H (74-99) mg/dL Calcium 8.9 (8.4-10.2) mg/dL AST 25 (14-36) U/L ALT 12 (4-34) U/L Alkaline Phosphatase 222 H (38-126) U/L Total Protein 6.2 L (6.3-8.2) g/dL Albumin 3.2 L (3.5-5.0) g/dL Calcium panel 10/23/24 Range/Units 12:19 Calcium 8.9 (8.4-10.2) mg/dL Albumin 3.2 L (3.5-5.0) g/dL Pituitary panel 10/23/24 Range/Units 12:19 Sodium 135 L (137-145) mmol/L Potassium 3.5 (3.5-5.1) mmol/L Chloride 101 (98-107) mmol/L Carbon Dioxide 21 L (22-30) mmol/L BUN 6 L (7-17) mg/dL Creatinine 0.59 (0.52-1.04) mg/dL Glucose 164 H (74-99) mg/dL Calcium 8.9 (8.4-10.2) mg/dL Adrenal panel 10/23/24 Range/Units 12:19 Sodium 135 L (137-145) mmol/L Potassium 3.5 (3.5-5.1) mmol/L Chloride 101 (98-107) mmol/L Carbon Dioxide 21 L (22-30) mmol/L BUN 6 L (7-17) mg/dL Creatinine 0.59 (0.52-1.04) mg/dL Glucose 164 H (74-99) mg/dL Calcium 8.9 (8.4-10.2) mg/dL Total Bilirubin 0.3 (0.2-1.3) mg/dL AST 25 (14-36) U/L ALT 12 (4-34) U/L Alkaline Phosphatase 222 H (38-126) U/L Total Protein 6.2 L (6.3-8.2) g/dL Albumin 3.2 L (3.5-5.0) g/dL - Imaging Comments: CT chest abdomen and pelvis impression states that loculated fluid collection in the left upper quadrant thought to be extending towards the pancreas. Correlate with serum lipase for pancreatitis. Additional fluid collection may be adjacent to or within the wall of the left upper quadrant:. Mild colonic wall thickening unclear if this is reactive or the cause of the fluid collection which may be in the wall itself persist adjacent to the wall. Short-term follow-up in 6 months after resolution of symptoms is recommended to ensure resolution of wall thickening. Portal vein filling defects suggestive of thrombus. Hepatic steato sis. Small hiatal hernia. Postsurgical changes to the stomach and bowel likely representing gastric bypass. Correlate with history of surgery. No evidence for acute thoracic process. Assessment and Plan Assessment: 1. Portal vein thrombus 2. Left-sided abdominal pain 3. Left-sided chest pain 4. Pain with inspiration 5. Recent fall 6. Fluid collection left upper quadrant on CT scan 7. Hepatic steatosis 8. History of alcohol pancreatitis 9. History of illicit drug use, quit 1 year ago 10. History of alcoholism Plan: 1. There is no indication for any vascular surgical intervention, continue with medical management with anticoagulation 2. Continue heparin drip, may transition to oral anticoagulation of your choice once cleared by general surgery 3. Pain management per primary medical team 4. Continue with recommendations from general surgery 5. Recommend outpatient follow-up with vascular surgery Thank you for this consultation, we will continue to follow. The impression and plan of care has been dictated as directed. Dr. Peter Parks performed a history and examination of this patient, discussed the same with the dictator. I agree with the dictator's note ,documented as a scribe. Any additional findings or plans will be noted.
--- NOTE | 2024-10-24 12:04 | P.DS ---
Providers Date of admission: 10/23/24 18:56 Attending physician: Alberto Stone Consults: 10/23/24 18:56 Consult Physician Routine Consulting Provider: Bteo Sam Consult Reason/Comments: portal vein thrombosis Do you want consulting provider notified?: Yes Consult Physician Routine Consulting Provider: Yared Mercado Consult Reason/Comments: abdominal cyst Do you want consulting provider notified?: Yes Primary care physician: Stated None Hospital Course: Patient 49-year-old female came with complaints of left mid and lower abdominal pain and also some musculoskeletal chest pain increases with coughing. Patient had history of alcohol abuse but denied any history of cirrhosis. Patient also has a history of cocaine marijuana use methamphetamine use in the past she quit using drugs about any year ago. CT patient had a CT of the abdomen which showed filling defect in the portal vein consistent with portal venous thrombosis. Vascular surgery evaluated the patient patient had some free fluid in the left pelvic area because of general surgery was consulted and general surgery believes this is secondary to congestion from portal venous thrombosis. Patient has leukocytosis no evidence of any other infection at this time. Patient was on IV heparin. Patient will be transition to [facility] and will be discharged to follow-up with vascular surgery and primary care physician as an outpatient. REVIEW OF SYSTEMS: All other systems are negative except those mentioned in the HPI PHYSICAL EXAMINATION: GENERAL: The patient is alert and oriented x3, not in any acute distress. Well developed, well nourished. HEENT: Pupils are round and equally reacting to light. EOMI. No scleral icterus. No conjunctival pallor. Normocephalic, atraumatic. No pharyngeal erythema. No th yromegaly. CARDIOVASCULAR: S1 and S2 present. No murmurs, rubs, or gallops. PULMONARY: Chest is clear to auscultation, no wheezing or crackles. ABDOMEN: Soft, nontender, nondistended, normoactive bowel sounds. No palpable organomegaly. MUSCULOSKELETAL: No joint swelling or deformity. EXTREMITIES: No cyanosis, clubbing, or pedal edema. NEUROLOGICAL: Gross neurological examination did not reveal any focal deficits. SKIN: No rashes. Assessment and plan -Portal vein thrombosis: Patient will be transitioned to [facility] and will be discharged today with above-mentioned follow-ups -Left-sided chest pain musculoskeletal in origin I do not believe patient has pulmonary medicine -Elevated D-dimer secondary to venous thrombosis -Leukocytosis reactive -Hepatic steatosis from her alcoholism in the past. Patient does not have any significant ascites except for that mild localized fluid collection in the left lower quadrant. Patient will be discharged today with Eliquis 10 mg twice a day for a week followed by 5 mg twice a day. Patient Condition at Discharge: Serious Plan - Discharge Summary Discharge Rx Participant: No New Discharge Prescriptions: New Apixaban [Eliquis Starter Pack (for VTE)] 0 mg PO DIRECTED 30 Days #1 pack Discharge Medication List Apixaban [Eliquis Starter Pack (for VTE)] 0 mg PO DIRECTED 30 Days #1 pack 10/24/24 [Rx] Follow up Appointment(s)/Referral(s): Kailey Marrero DO [STAFF PHYSICIAN] - 2 Weeks (Follow-up for portal vein thrombus with vascular surgery) None,Stated [Primary Care Provider] - 1-2 days Kevyn Pena MD [REFERRING] - 1 Week Discharge Disposition: HOME SELF-CARE
--- NOTE | 2024-10-24 12:04 | P.HPIM ---
History of Present Illness Patient 49-year-old female came with complaints of left mid and lower abdominal pain and also some musculoskeletal chest pain increases with coughing. Patient had history of alcohol abuse but denied any history of cirrhosis. Patient also has a history of cocaine marijuana use methamphetamine use in the past she quit using drugs about any year ago. CT patient had a CT of the abdomen which showed filling defect in the portal vein consistent with portal venous thrombosis. Vascular surgery evaluated the patient patient had some free fluid in the left pelvic area because of general surgery was consulted and general surgery belie ves this is secondary to congestion from portal venous thrombosis. Patient has leukocytosis no evidence of any other infection at this time. Patient was on IV heparin. Patient will be transition to Eliquis and will be discharged to follow-up with vascular surgery and primary care physician as an outpatient. REVIEW OF SYSTEMS: All other systems are negative except those mentioned in the HPI PHYSICAL EXAMINATION: GENERAL: The patient is alert and oriented x3, not in any acute distress. Well developed, well nourished. HEENT: Pupils are round and equally reacting to light. EOMI. No scleral icterus. No conjunctival pallor. Normocephalic, atraumatic. No pharyngeal erythema. No thyromegaly. CARDIOVASCULAR: S1 and S2 present. No murmurs, rubs, or gallops. PULMONARY: Chest is clear to auscultation, no wheezing or crackles. ABDOMEN: Soft, nontender, nondistended, normoactive bowel sounds. No palpable organomegaly. MUSCULOSKELETAL: No joint swelling or deformity. EXTREMITIES: No cyanosis, clubbing, or pedal edema. NEUROLOGICAL: Gross neurological examination did not reveal any focal deficits. SKIN: No rashes. Assessment and plan -Portal vein thrombosis: Patient will be transitioned to Eliquis and will be discharged today with above-mentioned follow-ups -Left-sided chest pain musculoskeletal in origin I do not believe patient has pulmonary medicine -Elevated D-dimer secondary to venous thrombosis -Leukocytosis reactive -Hepatic steatosis from her alcoholism in the past. Patient does not have any significant ascites except for that mild localized fluid collection in the left lower quadrant. Patient will be discharged today with Eliquis 10 mg twice a day for a week followed by 5 mg twice a day. Past Medical History Past Medical History: Cancer, Osteoarthritis (OA), Seizure Disorder Additional Past Medical History / Comment(s): HEAVY FLOW AND PELVIC PAIN WITH MENSCES. Chronic back pain.gum CA pancreatitis 2009, [place] and [place] in helicopter going to [facility] after Brain surgery in 2012 History of Any Multi-Drug Resistant Organisms: None Reported Past Surgical History: Section, Hernia Repair, Orthopedic Surgery, Tubal Ligation Additional Past Surgical History / Comment(s): ANXIETY INDUCED SEIZURES (LAST ONE ON 06/04/15). Gastric BYPASS. ORIF OF RIGHT ANKLE. RIGHT CARPAL TUNNEL. Brain Surgery @ [facility] Past Anesthesia/Blood Transfusion Reactions: No Reported Reaction Smoking Status: Former smoker, Vaper - Past Family History Father Family Medical History: Cancer Mother Family Medical History: Coronary Artery Disease (CAD) Medications and Allergies Home Medications Medication Instructions Recorded Confirmed Type Apixaban [Eliquis Starter Pack 0 mg PO DIRECTED 30 Days #1 pack 10/24/24 Rx (for VTE)] Allergies Allergy/AdvReac Type Severity Reaction Status Date / Time aspirin Allergy Swelling Verified 10/23/24 16:48 ibuprofen [From Motrin] Allergy Swelling Verified 10/23/24 16:48 peanut Allergy Anaphylaxis Verified 10/23/24 16:48 Physical Exam Vitals: Vital Signs Temp Pulse Pulse Resp BP BP Pulse Ox 10/24/24 08:50 97.9 F 86 18 153/91 97 10/24/24 05:40 56 L 15 95/66 97 10/24/24 00:00 70 15 130/59 91 L 10/23/24 19:12 98.4 F 95 16 128/82 95 10/23/24 16:20 90 16 124/89 97 Intake and Output 10/23/24 10/24/24 10/24/24 22:59 06:59 14:59 Other: Weight 67.132 kg Results CBC & Chem 7: 10/23/24 12:19 10/23/24 12:19 Labs: Abnormal Lab Results - Last 24 Hours (Table) 10/23/24 10/23/24 10/24/24 Range/Units 12:19 12:19 04:02 WBC 16.3 H (3.8-10.6) k/uL Hgb 10.8 L (11.4-16.0) gm/dL MCHC 29.6 L (31.0-37.0) g/dL RDW 17.3 H (11.5-15.5) % Plt Count 574 H (150-450) k/uL Neutrophils # 12.0 H (1.3-7.7) k/uL APTT 45.6 H (22.0-30.0) sec D-Dimer (<0.60) mg/L FEU Sodium 135 L (137-145) mmol/L Carbon Dioxide 21 L (22-30) mmol/L BUN 6 L (7-17) mg/dL Glucose 164 H (74-99) mg/dL Alkaline Phosphatase 222 H (38-126) U/L Total Protein 6.2 L (6.3-8.2) g/dL Albumin 3.2 L (3.5-5.0) g/dL 10/24/24 Range/Units 09:26 WBC (3.8-10.6) k/uL Hgb (11.4-16.0) gm/dL MCHC (31.0-37.0) g/dL RDW (11.5-15.5) % Plt Count (150-450) k/uL Neutrophils # (1.3-7.7) k/uL APTT (22.0-30.0) sec D-Dimer 5.86 H (<0.60) mg/L FEU Sodium (137-145) mmol/L Carbon Dioxide (22-30) mmol/L BUN (7-17) mg/dL Glucose (74-99) mg/dL Alkaline Phosphatase (38-126) U/L Total Protein (6.3-8.2) g/dL Albumin (3.5-5.0) g/dL Thrombosis Risk Factor Assmnt - Choose All That Apply Any of the Below Risk Factors Present?: Yes Each Factor Represents 1 point: Age 41-60 years Other Risk Factors: No Thrombosis Risk Factor Assessment Total Risk Factor Score: 1 Thrombosis Risk Factor Assessment Level: Low Risk
--- NOTE | 2024-10-24 12:32 | P.GSCN ---
History of Present Illness Consult date: 10/24/24 History of present illness: CHIEF COMPLAINT: Abdominal pain HISTORY OF PRESENT ILLNESS: This is a 49-year-old female presented to the hospital with complaints of abdominal pain x 5 days. Patient reports the pain is in the middle abdomen into the left upper quadrant and goes up into the chest. Patient reported not having a bowel movement for a couple days. Denies any nausea or vomiting. CT scan abdomen pelvis had reported loculated fluid collections in the left upper quadrant thought to be extending towards the pancreas. Additional fluid collection may be adjacent to or within the wall of the left upper quadrant colon. There is mild colonic wall thickening unclear if this is a reactive or the cause of the fluid collection. Portal vein filling defect is suggestive of a thrombus. Patient reports her pain is improving. She is tolerating diet. She is on IV heparin for the portal vein thrombus. Past surgical history does include a Amy-en-Y gastric bypass, hernia repair and C- section. Patient does have a past med history of heavy alcohol use. PAST MEDICAL HISTORY: See below PAST SURGICAL HISTORY: See below MEDICATIONS: See below ALLERGIES: See below SOCIAL HISTORY: No illicit drug use. REVIEW OF SYSTEMS: CONSTITUTIONAL: Denies fever or chills. HEENT: Denies blurred vision, vision changes, or eye pain. Denies hemoptysis CARDIOVASCULAR: Denies chest pain or pressure. RESPIRATORY: No shortness of breath. GASTROINTESTINAL: See HPI for pertinent findings HEMATOLOGIC: Denies bleeding disorders. GENITOURINARY: Denies any blood in urine or increased urinary frequency. SKIN: Denies pruitis. Denies rash. PHYSICAL EXAM: VITAL SIGNS: Reviewed GENERAL: Well-developed in no acute distress. HEENT: No sclera icterus. Extraocular movements grossly intact. Moist buccal mucosa. Head is atraumatic, normocephalic. No nasal drainage. ABDOMEN: Soft. Nondistended. Mild tenderness with palpation left upper quadrant and mid abdomen. No evidence of peritonitis. No rebound or guarding noted. NEUROLOGIC: Alert and oriented. Cranial nerves II through XII grossly intact. LABORATORY DATA: WBC 16.3 Hgb 10.8 platelets 574 Sodium is 135 potassium 3.5 creatinine 0.59 Total bilirubin 0.3 AST 25 ALT 12 alk phos 222 Lipase 261 Troponin negative. IMAGING: CT scan abdomen pelvis reports loculated fluid collections in the left upper quadrant thought to be extending towards the pancreas. Additional fluid collection may be adjacent to or within the wall of the left upper quadrant colon. There is mild colonic wall thickening unclear if this is reactive or the cause of the fluid collection. Which may be in the wall itself versus adjacent to the wall. Portal vein filling defect suggestive of thrombus. Hepatic steatosis. Small hiatal hernia. Postsurgical changes to the stomach and bowel likely representing gastric bypass. No evidence for acute thoracic process. ASSESSMENT: 1. Abdominal pain secondary to portal venous thrombus 2. Alcohol pancreatitis 3. Fluid collections noted on CT likely secondary to portal venous hypertension and congestion from the portal vein thrombus PLAN: -No surgical intervention planned -Recommend GI consult for alcohol pancreatitis -Agree with vascular surgery consult. They have ordered patient Eliquis for anticoagulation -Fluid collection should improve as the portal vein thrombus resolves -Patient can be discharged from surgical standpoint Physician Ski Lift Operator note has been reviewed by physician. Signing provider agrees with the documented findings, assessment, and plan of care. Past Medical History Past Medical History: Cancer, Osteoarthritis (OA), Seizure Disorder Additional Past Medical History / Comment(s): HEAVY FLOW AND PELVIC PAIN WITH MENSCES. Chronic back pain.gum CA pancreatitis 2009, [place] and [place] in helicopter going to [facility] after Brain surgery in 2012 History of Any Multi-Drug Resistant Organisms: None Reported Past Surgical History: Section, Hernia Repair, Orthopedic Surgery, Tubal Ligation Additional Past Surgical History / Comment(s): ANXIETY INDUCED SEIZURES (LAST ONE ON 06/04/15). Gastric BYPASS. ORIF OF RIGHT ANKLE. RIGHT CARPAL TUNNEL. Brain Surgery @ [facility] Past Anesthesia/Blood Transfusion Reactions: No Reported Reaction Smoking Status: Former smoker, Vaper - Past Family History Father Family Medical History: Cancer Mother Family Medical History: Coronary Artery Disease (CAD) Medications and Allergies Home Medications Medication Instructions Recorded Confirmed Type Apixaban [Eliquis Starter Pack 0 mg PO DIRECTED 30 Days #1 pack 10/24/24 Rx (for VTE)] traMADol HCL 50 mg PO Q6H 3 Days #12 tab 10/24/24 Rx Allergies Allergy/AdvReac Type Severity Reaction Status Date / Time aspirin Allergy Swelling Verified 10/23/24 16:48 ibuprofen [From Motrin] Allergy Swelling Verified 10/23/24 16:48 peanut Allergy Anaphylaxis Verified 10/23/24 16:48 Surgical - Exam Osteopathic Statement: *. No significant issues noted on an osteopathic structural exam other than those noted in the History and Physical/Consult. Vital Signs Temp Pulse Resp BP Pulse Ox 97.6 F 122 H 22 150/102 95 10/23/24 11:44 10/23/24 11:44 10/23/24 11:44 10/23/24 11:44 10/23/24 11:44 Results - Labs 10/23/24 12:19 10/23/24 12:19 Abnormal Lab Results - Last 24 Hours (Table) 10/23/24 10/23/24 10/24/24 Range/Units 12:19 12:19 04:02 WBC 16.3 H (3.8-10.6) k/uL Hgb 10.8 L (11.4-16.0) gm/dL MCHC 29.6 L (31.0-37.0) g/dL RDW 17.3 H (11.5-15.5) % Plt Count 574 H (150-450) k/uL Neutrophils # 12.0 H (1.3-7.7) k/uL APTT 45.6 H (22.0-30.0) sec D-Dimer (<0.60) mg/L FEU Sodium 135 L (137-145) mmol/L Carbon Dioxide 21 L (22-30) mmol/L BUN 6 L (7-17) mg/dL Glucose 164 H (74-99) mg/dL Alkaline Phosphatase 222 H (38-126) U/L Total Protein 6.2 L (6.3-8.2) g/dL Albumin 3.2 L (3.5-5.0) g/dL 10/24/24 Range/Units 09:26 WBC (3.8-10.6) k/uL Hgb (11.4-16.0) gm/dL MCHC (31.0-37.0) g/dL RDW (11.5-15.5) % Plt Count (150-450) k/uL Neutrophils # (1.3-7.7) k/uL APTT (22.0-30.0) sec D-Dimer 5.86 H (<0.60) mg/L FEU Sodium (137-145) mmol/L Carbon Dioxide (22-30) mmol/L BUN (7-17) mg/dL Glucose (74-99) mg/dL Alkaline Phosphatase (38-126) U/L Total Protein (6.3-8.2) g/dL Albumin (3.5-5.0) g/dL Diabetes panel 10/23/24 Range/Units 12:19 Sodium 135 L (137-145) mmol/L Potassium 3.5 (3.5-5.1) mmol/L Chloride 101 (98-107) mmol/L Carbon Dioxide 21 L (22-30) mmol/L BUN 6 L (7-17) mg/dL Creatinine 0.59 (0.52-1.04) mg/dL Glucose 164 H (74-99) mg/dL Calcium 8.9 (8.4-10.2) mg/dL AST 25 (14-36) U/L ALT 12 (4-34) U/L Alkaline Phosphatase 222 H (38-126) U/L Total Protein 6.2 L (6.3-8.2) g/dL Albumin 3.2 L (3.5-5.0) g/dL Calcium panel 10/23/24 Range/Units 12:19 Calcium 8.9 (8.4-10.2) mg/dL Albumin 3.2 L (3.5-5.0) g/dL Pituitary panel 10/23/24 Range/Units 12:19 Sodium 135 L (137-145) mmol/L Potassium 3.5 (3.5-5.1) mmol/L Chloride 101 (98-107) mmol/L Carbon Dioxide 21 L (22-30) mmol/L BUN 6 L (7-17) mg/dL Creatinine 0.59 (0.52-1.04) mg/dL Glucose 164 H (74-99) mg/dL Calcium 8.9 (8.4-10.2) mg/dL Adrenal panel 10/23/24 Range/Units 12:19 Sodium 135 L (137-145) mmol/L Potassium 3.5 (3.5-5.1) mmol/L Chloride 101 (98-107) mmol/L Carbon Dioxide 21 L (22-30) mmol/L BUN 6 L (7-17) mg/dL Creatinine 0.59 (0.52-1.04) mg/dL Glucose 164 H (74-99) mg/dL Calcium 8.9 (8.4-10.2) mg/dL Total Bilirubin 0.3 (0.2-1.3) mg/dL AST 25 (14-36) U/L ALT 12 (4-34) U/L Alkaline Phosphatase 222 H (38-126) U/L Total Protein 6.2 L (6.3-8.2) g/dL Albumin 3.2 L (3.5-5.0) g/dL Assessment and Plan Assessment: 49 yo female w/ sporadaic abdominal pain -physical exam reveals soft non surgical abdomen -lipase elevated, hx of previous cholecystectomy, hx etoh use, patient admits to previous episodes of pancreatitis -abdominal pain likely 2/2 pancreatitis vs venous thrombus -no surgical intervention at this time Time with Patient: Less than 30
[2024-10-24 13:07] VITALS: BP 136/83; PULSE 84; RESP 20; TEMP 97.6
[2024-10-24] MEDS: Apixaban Initiation Dose--VTE 5 MG TAB PO SCH (14:01)
--- NOTE | 2024-10-26 11:07 | CDI ---
Documentation Clarification Form Date: 10/26/2024 10:47:03 AM From: Apple Lane Admit Date: 10/23/2024 06:56:00 PM Patient Name: Teresa Bell Visit Number: [id number] Discharge Date: 10/24/2024 02:13:00 PM ATTENTION: The Clinical Documentation Specialists (CDI) and [facility] Coding Staff appreciate your assistance in clarifying documentation. Please respond to the clarification below the line at the bottom and electronically sign. The CDI & [facility] Coding staff will review the response and follow-up if needed. Please note: Queries are made part of the Legal Health Record. If you have any questions, please contact the author of this message via ITS. Doctor/Provider: Jose Leung Conflicting documentation has been found in the medical record. As attending physician, please provide clarification. Consult note 10/24/24 states history of alcohol pancreatitis. Additional consult note from 10/24/24 states alcohol pancreatitis. The assessment and plan states: lipase elevated, hx of previous cholecystectomy, hx etoh use, patient admits to previous episodes of pancreatitis. Abdominal pain likely 2/2 pancreatitis vs venous thrombus. No surgical intervention History/Risk Factors: patient is a 49 year old female with hepatic steatosis from her alcoholism in the past. Does not have any significant ascites. Seizure disorder, cancer, hx of pancreatitis in 2009, stroke and [place]. Clinical Indicators: patient came in with complaints of left mid and lower abdominal pain and musculoskeletal chest pain with increasing cough. Has a hx of alcohol abuse and drug use, but has not used in a year. Diagnosed with portal venous thrombosis. Per the notes Patient has leukocytosis but no evidence of any other infection at this time. WBC: 16.3, lipase 261 Treatment: patient was on IV heparin and transitioned to eliquis with vascular surgeon follow up Please clarify which diagnosis is most appropriate: [ ] Acute Alcoholic Pancreatitis [ x ] Chronic Alcoholic Pancreatitis [ ] History of Pancreatitis [ ] Other (please specify) [ ] Unable to determine PARISHD
== END 2024-10-24 14:13 | disposition home or self-care (01) | DRG 442 ==
LOC: EC 11:39 → 3SCARD 18:56
PROVIDERS: ADMIT Hospitalist; ATTEND Hospitalist
DX: I81 Portal vein thrombosis (principal); K76.6 Portal hypertension; K86.0 Alcohol-induced chronic pancreatitis; G40.909 Epilepsy, unspecified, not intractable, without status epilepticus; F10.11 Alcohol abuse, in remission; D72.829 Elevated white blood cell count, unspecified; F17.290 Nicotine dependence, other tobacco product, uncomplicated; G89.29 Other chronic pain; M54.9 Dorsalgia, unspecified; F14.91 Cocaine use, unspecified, in remission; F12.91 Cannabis use, unspecified, in remission; F15.91 Other stimulant use, unspecified, in remission; K76.0 Fatty (change of) liver, not elsewhere classified; R79.1 Abnormal coagulation profile; M19.90 Unspecified osteoarthritis, unspecified site; F41.9 Anxiety disorder, unspecified; Z91.81 History of falling; Z85.818 Personal history of malignant neoplasm of other sites of lip, oral cavity, and pharynx; Z98.84 Bariatric surgery status; Z86.73 Personal history of transient ischemic attack (TIA), and cerebral infarction without residual deficits
CPT/HCPCS: 36415; 70450; 71046; 71260; 74177; 80053; 83690; 83735; 84484; 85025; 85379; 85610; 85730; 93005; 96365; 96366; 96375; 96376; 99291

== ENCOUNTER 2024-10-31 22:56 | Inpatient (IN) | payer MEDICARE, OTHER ==
[2024-10-31 23:51] LABS: Anisocytosis Slight; Basophils # (A) 0.1 k/uL (0-0.2); Basophils % (A) 1 %; Eosinophils # (A) 0.5 k/uL (0-0.7); Eosinophils % (A) 4 %; HCT 34.8 % (34.0-46.0); HGB 9.9 gm/dL (11.4-16.0); Hypochromasia Marked; Lymphocytes # (A) 2.7 k/uL (1.0-4.8); Lymphocytes % (A) 24 %; MCH 28.7 pg (25.0-35.0); MCHC 28.5 g/dL (31.0-37.0); MCV 100.9 fL (80.0-100.0); Macrocytosis Moderate; Mean Platelet Volume 7.4; Monocytes # (A) 0.9 k/uL (0-1.0); Monocytes % (A) 8 %; Neutrophils # (A) 6.6 k/uL (1.3-7.7); Neutrophils % (A) 60 %; Platelet Count 584 k/uL (150-450); RBC 3.45 m/uL (3.80-5.40); RDW 17.6 % (11.5-15.5)
[2024-10-31 23:54] LABS: ALT 11 U/L (4-34); AST 19 U/L (14-36); African American GFR (CKD) >90 (>60 ml/min/1.73 sqM); Albumin 2.8 g/dL (3.5-5.0); Alkaline Phosphatase 139 U/L (38-126); Amylase 268 U/L (30-110); Anion Gap 6 mmol/L; Blood Urea Nitrogen 7 mg/dL (7-17); Calcium 8.3 mg/dL (8.4-10.2); Carbon Dioxide 23 mmol/L (22-30); Chloride 105 mmol/L (98-107); Glucose 98 mg/dL (74-99); Non-African American GFR(CKD) >90 (>60 ml/min/1.73 sqM); Potassium 4.1 mmol/L (3.5-5.1); Sodium 134 mmol/L (137-145); Total Bilirubin 0.5 mg/dL (0.2-1.3); Total Protein 5.8 g/dL (6.3-8.2)
[2024-11-01 00:08] LABS: Lipase 2188 U/L (23-300)
[2024-11-01] MEDS: MORPHINE SULFATE 4 MG/ML SYRINGE IV STA (00:59)
--- NOTE | 2024-11-01 01:16 | ED ---
Abdominal Pain HPI - General Chief Complaint: Abdominal Pain Stated Complaint: Transfer Time Seen by Provider: 10/31/24 22:58 Source: patient, EMS Mode of arrival: EMS Limitations: no limitations - History of Present Illness Initial Comments: This patient is a 49-year-old woman who arrives here as a transfer from [facility]. The patient had gone there to have evaluation for left upper quadrant abdominal pain that she states has been present since early October, probably more than 10 days now. The patient had been seen and admitted here in the hospital for the same pain. She had been diagnosed at that time with portal vein thrombosis, had been seen by vascular surgery and started on Eliquis. She states she continues to take that medication. When the pain had not gone away she went to [facility] today, she was seen there and transferred here because they do not have vascular surgery and they felt that the continued pain was probably related to the portal vein thrombosis. The patient had further workup at the other hospital, she had labs that included elevated amylase and lipase, she had CT scan that showed some probable pancreatitis versus possible colitis. Patient does have history of previous pancreatitis. She denies alcohol use. Her alcohol screen at the other hospital was negative. MD Complaint: abdominal pain -: week(s) Location: [facility] Radiation: none Migration to: no migration Severity: moderate Quality: aching Consistency: constant Improves With: nothing Worsens With: nothing Associated Symptoms: nausea, vomiting - Related Data Home Medications Medication Instructions Recorded Confirmed Apixaban [Eliquis Starter Pack See Taper PO DIRECTED 11/01/24 11/01/24 (for VTE)] Docusate [Colace] 100 mg PO DAILY PRN 11/01/24 11/01/24 Gabapentin [Neurontin] 300 mg PO TID 11/01/24 11/01/24 Ketorolac [Toradol] 10 mg PO Q6HR PRN 11/01/24 11/01/24 Ondansetron Odt [Zofran ODT] 8 mg PO BID PRN 11/01/24 11/01/24 Sertraline [Zoloft] 100 mg PO BID 11/01/24 11/01/24 hydrOXYzine HCL [Atarax] 100 mg PO TID PRN 11/01/24 11/01/24 Previous Rx's Medication Instructions Recorded HYDROcodone/APAP 5-325MG [[place] 1 tab PO Q8HR PRN 3 Days #9 tab 11/06/24 5-325] Allergies Allergy/AdvReac Type Severity Reaction Status Date / Time aspirin Allergy Swelling Verified 10/23/24 16:48 ibuprofen [From Motrin] Allergy Swelling Verified 10/23/24 16:48 peanut Allergy Anaphylaxis Verified 10/23/24 16:48 Review of Systems ROS Statement: Those systems with pertinent positive or pertinent negative responses have been documented in the HPI. ROS Other: All systems not noted in ROS Statement are negative. Constitutional: Denies: fever, chills Respiratory: Denies: cough, dyspnea Cardiovascular: Denies: chest pain, palpitations Gastrointestinal: Reports: abdominal pain, nausea, vomiting. Denies: diarrhea, constipation, hematemesis, melena, hematochezia Genitourinary: Denies: dysuria, hematuria Musculoskeletal: Denies: back pain Skin: Denies: rash Neurological: Denies: headache, weakness, numbness Past Medical History Past Medical History: Cancer, Osteoarthritis (OA), Seizure Disorder Additional Past Medical History / Comment(s): HEAVY FLOW AND PELVIC PAIN WITH MENSCES. Chronic back pain.gum CA pancreatitis 2009, [place] and [place] in helicopter going to [facility] after Brain surgery in 2012 History of Any Multi-Drug Resistant Organisms: None Reported Past Surgical History: Section, Hernia Repair, Orthopedic Surgery, Tubal Ligation Additional Past Surgical History / Comment(s): ANXIETY INDUCED SEIZURES (LAST ONE ON 06/04/15). Gastric BYPASS. ORIF OF RIGHT ANKLE. RIGHT CARPAL TUNNEL. Brain Surgery @ [facility] Past Anesthesia/Blood Transfusion Reactions: No Reported Reaction Past Psychological History: Anxiety Smoking Status: Former smoker, Vaper - Past Family History Father Family Medical History: Cancer Mother Family Medical History: Coronary Artery Disease (CAD) General Exam Limitations: no limitations General appearance: alert, in no apparent distress Head exam: Present: atraumatic, normocephalic Eye exam: Present: normal appearance. Absent: scleral icterus, conjunctival injection ENT exam: Present: normal oropharynx Neck exam: Present: normal inspection Respiratory exam: Present: normal lung sounds bilaterally. Absent: respiratory distress, wheezes, rales, rhonchi, stridor, accessory muscle use Cardiovascular Exam: Present: regular rate, normal rhythm, normal heart sounds. Absent: systolic murmur, diastolic murmur, rubs, gallop GI/Abdominal exam: Present: soft, tenderness. Absent: distended, guarding, rebound, rigid, mass, pulsatile mass, hernia Extremities exam: Present: normal inspection, normal capillary refill. Absent: pedal edema, calf tenderness Back exam: Present: normal inspection. Absent: CVA tenderness (R), CVA tenderness (L) Neurological exam: Present: alert Skin exam: Present: warm, dry, intact, normal color. Absent: rash Course Vital Signs 10/31/24 11/01/24 11/01/24 23:01 01:25 06:27 Temperature 98.7 F Pulse Rate 86 84 69 Respiratory 20 20 18 Rate Blood Pressure 146/61 113/54 110/80 O2 Sat by Pulse 95 97 100 Oximetry Medical Decision Making - Medical Decision Making Was pt. sent in by a medical professional or institution (YASIR Joseph, SURGICAL GARMENT ASSEMBLY SUPERVISOR, urgent care, hospital, or correction...) When possible be specific @ -[Patient is transferred from the other hospital in town here to have evaluation by vascular surgery given the recent portal vein thrombosis. Did you speak to anyone other than the patient for history (EMS, parent, family, police, friend...)? What history was obtained from this source @ -[Yes, I took report from the transferring hospital Did you review nursing and triage notes (agree or disagree)? Why? @ -[I reviewed and agree with nursing and triage notes] Were old charts reviewed (outside hosp., previous admission, EMS record, old EKG, old radiological studies, urgent care reports/EKG's, correction records)? Report findings @ -Yes, old charts were reviewed] Differential Diagnosis (chest pain, altered mental status, abdominal pain women, abdominal pain men, vaginal bleeding, weakness, fever, dyspnea, syncope, headache, dizziness, GI bleed, back pain, seizure, CVA, palpatations, mental health, musculoskeletal)? @ -[Differential Abdominal Pain Men: Appendicitis, cholecystitis, diverticulosis, ischemic bowel, pancreatitis, hepatitis, UTI, gastroenteritis, AAA, incarcerated hernia, bowel obstruction, constipation, inflammatory bowel, hepatitis, peptic ulcer disease, splenic infarction, perforated viscus, testicular torsion, this is not meant to be an all-inclusive list ] EKG interpreted by me (3pts min.). @ -[As above] X-rays interpreted by me (1pt min.). @ -[None done] CT interpreted by me (1pt min.). @ -[None done] U/S interpreted by me (1pt. min.). @ -[None done] What testing was considered but not performed or refused? (CT, X-rays, U/S, labs)? Why? @ -[None] What meds were considered but not given or refused? Why? @ -[None] Did you discuss the management of the patient with other professionals (professionals i.e. , PA, SURGICAL GARMENT ASSEMBLY SUPERVISOR, lab, RT, psych nurse, social human services assistants, production controller, teacher, senior vice president and chief information officer, immigration case worker)? Give summary @ -[Case discussed with admitting physician and treatment recommendations were incorporated Was smoking cessation discussed for >3mins.? @ -[No] Was critical care preformed (if so, how long)? @ -[No] Were there social determinants of health that impacted care today? How? (Homelessness, low income, unemployed, alcoholism, drug addiction, transportation, low edu. Level, literacy, decrease access to med. care, senior living, rehab)? @ -[No] Was there de-escalation of care discussed even if they declined (Discuss DNR or withdrawal of care, Hospice)? DNR status @ -[No] What co-morbidities impacted this encounter? (DM, HTN, Smoking, COPD, CAD, Cancer, CVA, ARF, Chemo, Hep., AIDS, mental health diagnosis, sleep apnea, mo rbid obesity)? @ -[History of alcohol abuse. History of pancreatitis. Recent portal vein thrombosis Was patient admitted / discharged? Hospital course, mention meds given and route, prescriptions, significant lab abnormalities, going to OR and other pertinent info. @ -This patient is 49-year-old woman who was transferred here to have reevaluation by vascular surgery. The patient will be admitted to have further treatment of the acute pancreatitis identified at the other hospital. Patient c lear liquid diet with analgesics. Undiagnosed new problem with uncertain prognosis? @ -[No] Drug Therapy requiring intensive monitoring for toxicity (Heparin, Nitro, Insulin, Cardizem)? @ -[No] Were any procedures done? @ -[No] Diagnosis/symptom? @ -[Acute abdominal pain Acute pancreatitis Acute, or Chronic, or Acute on Chronic? @ -[Acute Uncomplicated (without systemic symptoms) or Complicated (systemic symptoms)? @ -[Uncomplicated Side effects of treatment? @ -[No] Exacerbation, Progression, or Severe Exacerbation? @ -[No] Poses a threat to life or bodily function? How? (Chest pain, [place], PA, pneumonia, PE, COPD, DKA, ARF, appy, cholecystitis, CVA, Diverticulitis, Homicidal, Suicid al, threat to staff... and all critical care pts) @ -[There is low but nonzero risk related to pancreatitis All treatments are based on ideal body weight as in ED triage - Lab Data Result diagrams: 11/06/24 03:17 11/06/24 03:17 Lab Results 10/31/24 10/31/24 10/31/24 Range/Units 22:50 22:50 22:50 WBC 11.0 H (3.8-10.6) k/uL RBC 3.45 L (3.80-5.40) m/uL Hgb 9.9 L (11.4-16.0) gm/dL Hct 34.8 (34.0-46.0) % MCV 100.9 H (80.0-100.0) fL MCH 28.7 (25.0-35.0) pg MCHC 28.5 L (31.0-37.0) g/dL RDW 17.6 H (11.5-15.5) % Plt Count 584 H (150-450) k/uL MPV 7.4 Neutrophils % 60 % Lymphocytes % 24 % Monocytes % 8 % Eosinophils % 4 % Basophils % 1 % Neutrophils # 6.6 (1.3-7.7) k/uL Lymphocytes # 2.7 (1.0-4.8) k/uL Monocytes # 0.9 (0-1.0) k/uL Eosinophils # 0.5 (0-0.7) k/uL Basophils # 0.1 (0-0.2) k/uL Hypochromasia Marked Anisocytosis Slight Macrocytosis Moderate Sodium 134 L (137-145) mmol/L Potassium 4.1 (3.5-5.1) mmol/L Chloride 105 (98-107) mmol/L Carbon Dioxide 23 (22-30) mmol/L Anion Gap 6 mmol/L BUN 7 (7-17) mg/dL Creatinine 0.60 (0.52-1.04) mg/dL Est GFR (CKD-EPI)AfAm >90 (>60 ml/min/1.73 sqM) Est GFR (CKD-EPI)NonAf >90 (>60 ml/min/1.73 sqM) Glucose 98 (74-99) mg/dL Plasma Lactic Acid Tom 1.8 (0.7-2.0) mmol/L Calcium 8.3 L (8.4-10.2) mg/dL Total Bilirubin 0.5 (0.2-1.3) mg/dL AST 19 (14-36) U/L ALT 11 (4-34) U/L Alkaline Phosphatase 139 H (38-126) U/L Total Protein 5.8 L (6.3-8.2) g/dL Albumin 2.8 L (3.5-5.0) g/dL Amylase 268 H (30-110) U/L Lipase 2188 H (23-300) U/L Disposition Clinical Impression: Abdominal pain, Acute pancreatitis Disposition: ADMITTED IP TO THIS HOSP Condition: Stable Is patient prescribed a controlled substance at d/c from ED?: No
[2024-11-01] MEDS ORDERED: NALOXONE 0.4 MG/ML 1 ML VIAL IV PRN (02:37)
[2024-11-01] MEDS ORDERED: ACETAMINOPHEN TAB 325 MG TAB PO PRN (02:37)
[2024-11-01] MEDS: SODIUM CHLORIDE 0.9% 1,000 ML IV SCH (03:11)
[2024-11-01] MEDS: MORPHINE SULFATE 4 MG/ML SYRINGE IV PRN (07:02)
[2024-11-01] MEDS ORDERED: NON FORMULARY DRUG (Apixaban [Eliquis Starter Pack (For Vte)] 5 MG Tab.Ds.Pk) PO SCH (09:00)
[2024-11-01] MEDS: PANTOPRAZOLE 40 MG/10 ML VIAL IV SCH (09:28)
[2024-11-01] MEDS: LACTATED RINGERS 1,000 ML IV SCH (09:31)
[2024-11-01] MEDS: Apixaban Initiation Dose--VTE 5 MG TAB PO SCH (10:12)
[2024-11-01] MEDS ORDERED: NON FORMULARY DRUG (Ketorolac 10 MG Tab) PO PRN (11:07)
[2024-11-01] MEDS ORDERED: diphenhydrAMINE 25 MG CAP PO PRN (11:07)
[2024-11-01] MEDS ORDERED: ONDANSETRON ODT 8 MG TAB.RAPDIS PO PRN (11:27)
--- NOTE | 2024-11-01 12:11 | P.GSCN ---
History of Present Illness Consult date: 11/01/24 Reason for Consult: Portal vein thrombus Requesting physician: Beto Ramirez History of present illness: This is a pleasant 49-year-old female who was transferred to the emergency department yesterday from [facility] with continued complaints of left-sided abdominal pain which increases with coughing, she taking a deep breath or movement. Patient was recently seen at this hospital on 10/23/2024 with same complaints had a CT of the abdomen pelvis with finding of portal vein thrombus. She was seen by vascular surgery at that time and we had recommended starting anticoagulation. Vascular surgery has been reconsulted regarding portal vein thrombus. Patient has been on Eliquis she is on 5 mg twice daily and states she has been taking as scheduled. She states her abdominal pain was worsening so she went to the emergency department for further evaluation. Denied any nausea or vomiting associated with that. Past medical history includes alcohol pancreatitis, gum cancer, gastric bypass and seizure disorder. History also includes illicit drug use including cocaine marijuana and methamphetamines as well as alcohol abuse. States her last drink was about 10 days ago prior to coming into the hospital, smoked marijuana yesterday however states last illicit drug use was over a year ago. Prior to that heavy alcohol abuse up to a gallon a day. She had a CT of the chest abdomen and pelvis with contrast during her last admission reporting portal vein filling defect suggestive of thrombus amongst other things. Vascular surgery was consulted for portal vein thrombus. There was also note of loculated fluid collection in the left upper quadrant talk to be extending towards the pancreas. Patient was admitted for abdominal pain with elevated amylase and lipase as well as CT evidence of pancreatitis. Patient is afebrile. She continues to complain of abdominal pain mostly in the left upper and lower abdomen. Denies any nausea or vomiting. Denies any diarrhea. States she had 1 episode of loose stool yesterday. No shortness of breath or chest pain. Review of Systems A 14 point review systems was completed all pertinent positives and negatives as stated in the HPI. Past Medical History Past Medical History: Cancer, Osteoarthritis (OA), Seizure Disorder Additional Past Medical History / Comment(s): HEAVY FLOW AND PELVIC PAIN WITH MENSCES. Chronic back pain.gum CA pancreatitis 2009, [place] [facility] [place] [facility] 2012 History of Any Multi-Drug Resistant Organisms: None Reported Past Surgical History: Section, Hernia Repair, Orthopedic Surgery, Tubal Ligation Additional Past Surgical History / Comment(s): ANXIETY INDUCED SEIZURES (LAST ONE ON 06/04/15). Gastric BYPASS. ORIF OF RIGHT ANKLE. RIGHT CARPAL TUNNEL. Brain Surgery @ [facility] Past Anesthesia/Blood Transfusion Reactions: No Reported Reaction Past Psychological History: Anxiety Smoking Status: Former smoker, Vaper - Past Family History Father Family Medical History: Cancer Mother Family Medical History: Coronary Artery Disease (CAD) Medications and Allergies Home Medications Medication Instructions Recorded Confirmed Type Apixaban [Eliquis Starter Pack See Taper PO DIRECTED 11/01/24 11/01/24 History (for VTE)] Docusate [Colace] 100 mg PO DAILY PRN 11/01/24 11/01/24 History Gabapentin [Neurontin] 300 mg PO TID 11/01/24 11/01/24 History Ketorolac [Toradol] 10 mg PO Q6HR PRN 11/01/24 11/01/24 History Ondansetron Odt [Zofran Odt] 8 mg PO BID PRN 11/01/24 11/01/24 History Sertraline [Zoloft] 100 mg PO BID 11/01/24 11/01/24 History hydrOXYzine HCL [Atarax] 100 mg PO TID PRN 11/01/24 11/01/24 History Allergies Allergy/AdvReac Type Severity Reaction Status Date / Time aspirin Allergy Swelling Verified 10/23/24 16:48 ibuprofen [From Motrin] Allergy Swelling Verified 10/23/24 16:48 peanut Allergy Anaphylaxis Verified 10/23/24 16:48 Surgical - Exam Vital Signs Temp Pulse Resp BP Pulse Ox 98.7 F 86 20 146/61 95 10/31/24 23:01 10/31/24 23:01 10/31/24 23:01 10/31/24 23:01 10/31/24 23:01 General appearance: The patient is alert, oriented, appears in no acute distress. HET: Head is normocephalic and atraumatic. Pupils are equal and reactive. Neck: Supple. Heart: Regular. Lungs: Equal expansion, normal respiratory effort. Abdomen: Soft, left upper quadrant and left lower quadrant tenderness, nondistended. Extremities: Normal skin color and turgor. Neurological: No focal deficits. Strength and sensation are grossly intact. Results - Labs 10/31/24 22:50 10/31/24 22:50 Abnormal Lab Results - Last 24 Hours (Table) 10/31/24 10/31/24 Range/Units 22:50 22:50 WBC 11.0 H (3.8-10.6) k/uL RBC 3.45 L (3.80-5.40) m/uL Hgb 9.9 L (11.4-16.0) gm/dL MCV 100.9 H (80.0-100.0) fL MCHC 28.5 L (31.0-37.0) g/dL RDW 17.6 H (11.5-15.5) % Plt Count 584 H (150-450) k/uL Sodium 134 L (137-145) mmol/L Calcium 8.3 L (8.4-10.2) mg/dL Alkaline Phosphatase 139 H (38-126) U/L Total Protein 5.8 L (6.3-8.2) g/dL Albumin 2.8 L (3.5-5.0) g/dL Amylase 268 H (30-110) U/L Lipase 2188 H (23-300) U/L Diabetes panel 10/31/24 Range/Units 22:50 Sodium 134 L (137-145) mmol/L Potassium 4.1 (3.5-5.1) mmol/L Chloride 105 (98-107) mmol/L Carbon Dioxide 23 (22-30) mmol/L BUN 7 (7-17) mg/dL Creatinine 0.60 (0.52-1.04) mg/dL Glucose 98 (74-99) mg/dL Calcium 8.3 L (8.4-10.2) mg/dL AST 19 (14-36) U/L ALT 11 (4-34) U/L Alkaline Phosphatase 139 H (38-126) U/L Total Protein 5.8 L (6.3-8.2) g/dL Albumin 2.8 L (3.5-5.0) g/dL Calcium panel 10/31/24 Range/Units 22:50 Calcium 8.3 L (8.4-10.2) mg/dL Albumin 2.8 L (3.5-5.0) g/dL Pituitary panel 10/31/24 Range/Units 22:50 Sodium 134 L (137-145) mmol/L Potassium 4.1 (3.5-5.1) mmol/L Chloride 105 (98-107) mmol/L Carbon Dioxide 23 (22-30) mmol/L BUN 7 (7-17) mg/dL Creatinine 0.60 (0.52-1.04) mg/dL Glucose 98 (74-99) mg/dL Calcium 8.3 L (8.4-10.2) mg/dL Adrenal panel 10/31/24 Range/Units 22:50 Sodium 134 L (137-145) mmol/L Potassium 4.1 (3.5-5.1) mmol/L Chloride 105 (98-107) mmol/L Carbon Dioxide 23 (22-30) mmol/L BUN 7 (7-17) mg/dL Creatinine 0.60 (0.52-1.04) mg/dL Glucose 98 (74-99) mg/dL Calcium 8.3 L (8.4-10.2) mg/dL Total Bilirubin 0.5 (0.2-1.3) mg/dL AST 19 (14-36) U/L ALT 11 (4-34) U/L Alkaline Phosphatase 139 H (38-126) U/L Total Protein 5.8 L (6.3-8.2) g/dL Albumin 2.8 L (3.5-5.0) g/dL - Imaging Comments: CT abdomen pelvis with IV contrast from [facility] done on 10/31/2024 reports extensive fat stranding identified in the ascending colon extending to the pancreas body and tail. Findings may suggest colitis and/or acute pancreatitis. No abscess or perforation. Correlation with clinical evaluation is recommended. Hepatomegaly with fatty infiltration. Assessment and Plan Assessment: 1. Abdominal pain 2. Portal vein thrombus 3. Acute pancreatitis 4. History of alcohol pancreatitis 5. Alcohol abuse 5. History of illicit drug use 6. History of bariatric surgery Plan: 1. Continue oral anticoagulation as previously ordered 2. Abdominal pain is not secondary to portal vein thrombus. Likely secondary to acute pancreatitis. There is no indication for any vascular surgical intervention. 3. Pain medication per primary medical team Thank you for this consultation, we will sign off at this time. The impression and plan of care has been dictated as directed. Dr. Deandre Stephens performed a history and examination of this patient, discussed the same with the dictator. I agree with the dictator's note ,documented as a scribe. Any additional findings or plans will be noted.
--- NOTE | 2024-11-01 12:14 | P.HPIM ---
History of Present Illness H&P Date: 11/01/24 Chief Complaint: abdominal pain Patient is a 49-year-old female with history of alcohol abuse disorder, hepatic steatosis, anxiety, depression, CVA (in 2012) and gastric bypass surgery is transferred from [facility] yesterday after she presented with left upper quadrant and epigastric abdominal pain which has been ongoing for the last 2 weeks but has got worse in the last 3 days. Patient was hospitalized to [facility] on 10/23/2024 with a similar complaint. She was diagnosed with portal vein thrombosis. No surgical intervention was done. Patient was sent home on anticoagulation. Patient reports good compliance. However, patient continued to endorse left-sided abdominal pain which is getting worse from the last 3 days associated with nausea and vomiting. Denies any tarry colored or bloody bowel movement. This prompted her to go to [facility] ER yesterday where she had a CAT scan of the abdomen pelvis which showed extensive fat stranding in the ascending colon extending to the pancreas body and tail with findings suggestive of colitis and or acute pancreatitis. Lab work at [facility] showed lipase 445. Vascular surgery was not available at that hospital therefore patient was transferred to [facility]. Patient has very extensive alcohol history. Patient reports that she has been drinking 1 gallon of hard liquor for more than 10 years quitting in 2019. However, she has been drinking socially with her last drink 10 days ago when she doing a pint of liquor. Patient has history of pancreatitis in the past requiring hospitalization. Initial laboratory work in the ER here shows WBC 11.0, hemoglobin 9.9, platelet count 584, PT 45.6, D-dimer 5.86, sodium 134, potassium 4.1, chloride 105, bicarb 23, lactic acid 1.8, calcium 8.3, AST 19, ALT 11, ALP 139, amylase 268, lipase 2188. Vital signs on arrival shows temperature 98.7 F, pulse rate 86, respiration rate 20, blood pressure 146/61, oxygen saturation 95% on room air. Review of systems: Denies chest pain, shortness of breath, numbness or weakness or tingling in upper or lower extremities. Pertinent positives and negatives as discussed in HPI, a complete review of systems was performed and all other systems are negative. Social history: As above in HPI Family History: CABG in father Physical examination: Vital signs reviewed General: non toxic, no distress, appears older than stated age, overweight Derm: no unusual rashes/lesions, warm Head: atraumatic, normocephalic, symmetric Eyes: EOMI, no lid lag, anicteric sclera, pupils equal round reactive to light ENT: Nose and ears atraumatic Neck: No cervical lymphadenopathy, trachea midline, supple Mouth: no lip lesion, mucus membranes moist Cardiovascular: S1S2 reg, no murmur, positive dorsalis pedis pulse bilateral, no edema Lungs: CTA bilateral, no rhonchi, no rales, no accessory muscle use Abdominal: soft, tender to palpation on left upper and lower quadrant. Bowel sounds positive. No rebound tenderness. Ext: muscle strength 5 out of 5 in all 4 extremities grossly, no gross muscle atrophy, no contractures, Neuro: CN II-XI grossly intact, no gross focal neuro deficits Psych: Alert, oriented, appropriate affect Assessment/Plan: This is a Patient is a 49-year-old female with history of alcohol abuse disorder, hepatic steatosis, anxiety, depression, CVA (in 2012) and gastric bypass surgery is transferred from [facility] yesterday after she presented with left upper quadrant and epigastric abdominal pain which she says been going on for the last 2 weeks but has got worse in the last 3 days. Case was discussed with the Emergency Room provider and decision was made to admit the patient for acute pancreatitis versus colitis Labs and images: Initial laboratory work in the ER here shows WBC 11.0, hemoglobin 9.9, platelet count 584, PT 45.6, D-dimer 5.86, sodium 134, potassium 4.1, chloride 105, bicarb 23, lactic acid 1.8, calcium 8.3, AST 19, ALT 11, ALP 139, amylase 268, lipase 2188. Vital signs on arrival shows temperature 98.7 F, pulse rate 86, respiration rate 20, blood pressure 146/61, oxygen saturation 95% on room air. Active problems: #Abdominal pain secondary to acute pancreatitis (likely alcoholic Acute colitis (inflammatory vs infectious) #History of portal vein thrombosis on 10/23/2024 #History of alcohol abuse disorder #Hepatic steatosis #Elevated alkaline phosphatase CAT scan of the abdomen pelvis at [facility] shows findings suggestive of colitis and or acute pancreatitis. Amylase 2188 Consult GI and vascular surgery Aggressive IV hydration with lactated Ringer at 150 cc/h Pain control with morphine 4 mg IV every 4 hours as needed NPO diet Repeat CBC and CMP tomorrow a.m. Order procalcitonin and calprotectin Initiate IV Zosyn 3.375 g every 8 hours #Macrocytic anemia Order vitamin B12 and serum folate Also order iron studies Monitor CBC Chronic: Constipation: Resume Colace 100 mg p.o. daily Neuropathy: Resume Neurontin 300 p.o. 3 times daily Anxiety and depression: Resume Atarax 100 mg p.o. 3 times daily and Zoloft 100 m g p.o. twice daily DVT prophylaxis: Eliquis 10 mg p.o. twice daily GI prophylaxis: IV Protonix 40 mg daily F: Lactated Ringer at 150 cc/h E: Replete as needed N: N.p.o. A: Ambulatory at baseline The patient is admitted with an anticipated less than than 2 midnight stay for evaluation of acute pancreatitis versus colitis CODE STATUS: Full code Discussed with: Patient Anticipated discharge place: Pending clinical course Dictation was produced using [employer] dictation software. Please excuse any grammatical, word or spelling errors. Attestation I have seen and examined this patient with my resident , discussed the same with the resident/BETH, and agree with the dictator's assessment and plan as written GENERAL: The patient is alert and oriented x3, not in any acute distress. Well developed, well nourished. HEENT: Pupils are round and equally reacting to light. EOMI. No scleral icterus. No conjunctival pallor. Normocephalic, atraumatic. No pharyngeal erythema. No thyromegaly. CARDIOVASCULAR: S1 and S2 present. No murmurs, rubs, or gallops. PULMONARY: Chest is clear to auscultation, no wheezing or crackles. ABDOMEN: Soft, tenderness in epigastric area, normoactive bowel sounds. No palpable organomegaly. MUSCULOSKELETAL: No joint swelling or deformity. EXTREMITIES: No cyanosis, clubbing, or pedal edema. NEUROLOGICAL: Gross neurological examination did not reveal any focal deficits. SKIN: No rashes. Dr. Sami jeff Past Medical History Past Medical History: Cancer, Osteoarthritis (OA), Seizure Disorder Additional Past Medical History / Comment(s): HEAVY FLOW AND PELVIC PAIN WITH MENSCES. Chronic back pain. pancreatitis 2009, [place] and [place] in helicopter going to [facility]. History of Any Multi-Drug Resistant Organisms: None Reported Past Surgical History: Section, Hernia Repair, Hysterectomy, Orthopedic Surgery, Tubal Ligation Additional Past Surgical History / Comment(s): ANXIETY INDUCED SEIZURES (LAST ONE ON 06/04/15). Gastric BYPASS. ORIF OF RIGHT ANKLE. RIGHT CARPAL TUNNEL. Brain Surgery @ [facility] Past Anesthesia/Blood Transfusion Reactions: No Reported Reaction Past Psychological History: Anxiety Smoking Status: Former smoker, Vaper Past Alcohol Use History: Occasional Additional Past Alcohol Use History / Comment(s): quit smoking cigarrites in 2019 Past Drug Use History: Cocaine, Heroin, Marijuana, Methamphetamine Additional Drug Use History / Comment(s): quit Aug 2023, occasionaly Marijuana - Past Family History Father Family Medical History: Cancer Mother Family Medical History: Coronary Artery Disease (CAD) Medications and Allergies Home Medications Medication Instructions Recorded Confirmed Type Apixaban [Eliquis Starter Pack See Taper PO DIRECTED 11/01/24 11/01/24 Histor y (for VTE)] Docusate [Colace] 100 mg PO DAILY PRN 11/01/24 11/01/24 History Gabapentin [Neurontin] 300 mg PO TID 11/01/24 11/01/24 History Ketorolac [Toradol] 10 mg PO Q6HR PRN 11/01/24 11/01/24 History Ondansetron Odt [Zofran Odt] 8 mg PO BID PRN 11/01/24 11/01/24 History Sertraline [Zoloft] 100 mg PO BID 11/01/24 11/01/24 History hydrOXYzine HCL [Atarax] 100 mg PO TID PRN 11/01/24 11/01/24 History Allergies Allergy/AdvReac Type Severity Reaction Status Date / Time aspirin Allergy Swelling Verified 10/23/24 16:48 ibuprofen [From Motrin] Allergy Swelling Verified 10/23/24 16:48 peanut Allergy Anaphylaxis Verified 10/23/24 16:48 Physical Exam Vitals: Vital Signs Temp Pulse Pulse Resp BP BP Pulse Ox 11/01/24 07:33 98.2 F 67 17 107/70 91 L 11/01/24 06:27 69 18 110/80 100 11/01/24 01:25 84 20 113/54 97 10/31/24 23:01 98.7 F 86 20 146/61 95 Intake and Output 10/31/24 11/01/24 11/01/24 22:59 06:59 14:59 Other: Weight 77.564 kg 77.564 kg Results CBC & Chem 7: 11/02/24 04:11 11/02/24 04:11 Labs: Abnormal Lab Results - Last 24 Hours (Table) 10/31/24 10/31/24 Range/Units 22:50 22:50 WBC 11.0 H (3.8-10.6) k/uL RBC 3.45 L (3.80-5.40) m/uL Hgb 9.9 L (11.4-16.0) gm/dL MCV 100.9 H (80.0-100.0) fL MCHC 28.5 L (31.0-37.0) g/dL RDW 17.6 H (11.5-15.5) % Plt Count 584 H (150-450) k/uL Sodium 134 L (137-145) mmol/L Calcium 8.3 L (8.4-10.2) mg/dL Alkaline Phosphatase 139 H (38-126) U/L Total Protein 5.8 L (6.3-8.2) g/dL Albumin 2.8 L (3.5-5.0) g/dL Amylase 268 H (30-110) U/L Lipase 2188 H (23-300) U/L Thrombosis Risk Factor Assmnt - Choose All That Apply Each Factor Represents 1 point: Age 41-60 years, Obesity (BMI >25) Each Risk Factor Represents 3 Points: Family history of DVT/PE, History of DVT/PE Thrombosis Risk Factor Assessment Total Risk Factor Score: 8 Thrombosis Risk Factor Assessment Level: High Risk
[2024-11-01] MEDS: diphenhydrAMINE 25 MG CAP PO STA (12:39)
[2024-11-01] MEDS: PIPERACILLIN-TAZOBACTAM 3.375 GM in SODIUM CHLORIDE 0.9% 100 ML IVPB STA (12:41)
[2024-11-01] MEDS: NICOTINE 21MG/24HR PATCH TRANSDERM SCH (14:48)
[2024-11-01 15:16] LABS: % Iron Saturation 33.33 (12.00-45.00)
--- NOTE | 2024-11-01 15:43 | P.CONS ---
History of Present Illness - Reason for Consult Consult date: 11/01/24 Pancreatitis Requesting physician: Beto Ramirez - Chief Complaint Abdominal pain - History of Present Illness This is a pleasant 49-year-old female who was transferred to the emergency department yesterday from [facility] with continued complaints of left-sided abdominal pain which increases with coughing, she taking a deep breath or movement. Patient was recently seen at this hospital on 10/23/2024 with same complaints had a CT of the abdomen pelvis with finding of portal vein thrombus. She was seen by vascular surgery at that time and we had recommended starting anticoagulation. Patient has been on Eliquis she is on 5 mg twice daily and states she has been taking as scheduled. She states her abdominal pain was worsening so she went to the emergency department for further evaluation. CT abdomen and pelvis reported findings consistent with pancreatitis. Gastroenterology was consulted for acute pancreatitis. Denied any nausea or vomiting associated with that. Past medical history includes alcohol pancreatitis, gum cancer, gastric bypass and seizure disorder. History also includes illicit drug use including cocaine marijuana and methamphetamines as well as alcohol abuse. States her last drink was about 10 days ago prior to coming into the hospital, smoked marijuana yesterday however states last illicit drug use was over a year ago. Prior to that heavy alcohol abuse up to a gallon a day. She had a CT of the chest abdomen and pelvis with contrast during her last admission reporting portal vein filling defect suggestive of thrombus amongst other things. Vascular surgery was consulted for portal vein thrombus. There was also note of loculated fluid collection in the left upper quadrant talk to be extending towards the pancreas. Patient was admitted for abdominal pain with elevated amylase and lipase as well as CT evidence of pancreatitis. Patient is afebrile. She continues to complain of abdominal pain mostly in the left upper and lower abdomen. Denies any nausea or vomiting. Denies any diarrhea. States she had 1 episode of loose stool yesterday. No shortness of breath or chest pain. Review of Systems REVIEW OF SYSTEMS: CARDIOPULMONARY: No chest pain or shortness of breath. Gastrointestinal: Abdominal pain. No nausea or vomiting. No hematemesis, coffee-ground emesis. No rectal bleeding, or melena. GENITOURINARY: No dysuria or hematuria. MUSCULOSKELETAL: Reports normal range of motion., Joint pain. SKIN: No rashes. No jaundice. ENDOCRINE: No chills, fevers. No excessive weight gain or loss. No polydipsia or polyuria. PSYCHIATRIC: Unremarkable. NEUROLOGY: No change in mental status. Denies dizziness, headache. ENT: Vision unremarkable. CONSTITUTIONAL: No recent weight loss. No fever, chills, night sweats. Past Medical History Past Medical History: Cancer, Osteoarthritis (OA), Seizure Disorder Additional Past Medical History / Comment(s): HEAVY FLOW AND PELVIC PAIN WITH MENSCES. Chronic back pain.gum CA pancreatitis 2009, [place] and [place] in helicopter going to [facility] after Brain surgery in 2012 History of Any Multi-Drug Resistant Organisms: None Reported Past Surgical History: Section, Hernia Repair, Orthopedic Surgery, Tubal Ligation Additional Past Surgical History / Comment(s): ANXIETY INDUCED SEIZURES (LAST ONE ON 06/04/15). Gastric BYPASS. ORIF OF RIGHT ANKLE. RIGHT CARPAL TUNNEL. Brain Surgery @ [facility] Past Anesthesia/Blood Transfusion Reactions: No Reported Reaction Past Psychological History: Anxiety Smoking Status: Former smoker, Vaper - Past Family History Father Family Medical History: Cancer Mother Family Medical History: Coronary Artery Disease (CAD) Medications and Allergies Home Medications Medication Instructions Recorded Confirmed Type Apixaban [Eliquis Starter Pack See Taper PO DIRECTED 11/01/24 11/01/24 History (for VTE)] Docusate [Colace] 100 mg PO DAILY PRN 11/01/24 11/01/24 History Gabapentin [Neurontin] 300 mg PO TID 11/01/24 11/01/24 History Ketorolac [Toradol] 10 mg PO Q6HR PRN 11/01/24 11/01/24 History Ondansetron Odt [Zofran Odt] 8 mg PO BID PRN 11/01/24 11/01/24 History Sertraline [Zoloft] 100 mg PO BID 11/01/24 11/01/24 History hydrOXYzine HCL [Atarax] 100 mg PO TID PRN 11/01/24 11/01/24 History Allergies Allergy/AdvReac Type Severity Reaction Status Date / Time aspirin Allergy Swelling Verified 10/23/24 16:48 ibuprofen [From Motrin] Allergy Swelling Verified 10/23/24 16:48 peanut Allergy Anaphylaxis Verified 10/23/24 16:48 Physical Exam Vitals: Vital Signs Temp Pulse Pulse Resp BP BP Pulse Ox 11/01/24 07:33 98.2 F 67 17 107/70 91 L 11/01/24 06:27 69 18 110/80 100 11/01/24 01:25 84 20 113/54 97 10/31/24 23:01 98.7 F 86 20 146/61 95 Intake and Output 10/31/24 11/01/24 11/01/24 22:59 06:59 14:59 Other: Weight 77.564 kg General appearance: The patient is alert, oriented, appears in no acute distress. HET: Head is normocephalic and atraumatic. Conjunctiva pink. Sclera anicteric. Neck: Supple without lymphadenopathy. Trachea midline. Heart: Regular. Lungs: Equal expansion, normal respiratory effort. Abdomen: Soft, left upper quadrant and left lower quadrant abdominal tenderness to palpation, nondistended. Skin: No rashes. No jaundice. Extremities: Normal skin color and turgor. No pedal edema. Neurological: No focal deficits. Alert and oriented x3. Results CBC & Chem 7: 10/31/24 22:50 10/31/24 22:50 Labs: Abnormal Lab Results - Last 24 Hours (Table) 10/31/24 10/31/24 Range/Units 22:50 22:50 WBC 11.0 H (3.8-10.6) k/uL RBC 3.45 L (3.80-5.40) m/uL Hgb 9.9 L (11.4-16.0) gm/dL MCV 100.9 H (80.0-100.0) fL MCHC 28.5 L (31.0-37.0) g/dL RDW 17.6 H (11.5-15.5) % Plt Count 584 H (150-450) k/uL Sodium 134 L (137-145) mmol/L Calcium 8.3 L (8.4-10.2) mg/dL Alkaline Phosphatase 139 H (38-126) U/L Total Protein 5.8 L (6.3-8.2) g/dL Albumin 2.8 L (3.5-5.0) g/dL Amylase 268 H (30-110) U/L Lipase 2188 H (23-300) U/L Comments: CT abdomen pelvis with IV contrast from [facility] done on 10/31/2024 reports extensive fat stranding identified in the ascending colon extending to the pancreas body and tail. Findings may suggest colitis and/or acute pancreatitis. No abscess or perforation. Correlation with clinical evaluation is recommended. Hepatomegaly with fatty infiltration. Assessment and Plan (1) Acute pancreatitis Narrative/Plan: 49-year-old female with alcohol dependence and previous history of a alcohol pancreatitis presents with complaints of left upper quadrant abdominal pain as well as lower abdominal pain with CT evidence of inflammation around the pancreas and elevated amylase and lipase consistent with acute pancreatitis. Again pancreatitis likely secondary to alcohol use. Patient has history of heavy alcohol use reports last drinking about 10 days ago. This is also in a patient with portal vein thrombosis on anticoagulation. Continue with symptomatic treatment. Current Visit: Yes Status: Acute Code(s): K85.90 - ACUTE PANCREATITIS WITHOUT NECROSIS OR INFECTION, UNSP SNOMED Code(s): 176440831 (2) Abdominal pain Current Visit: Yes Status: Acute Code(s): R10.9 - UNSPECIFIED ABDOMINAL PAIN SNOMED Code(s): 93464057 (3) Alcohol use disorder, severe, dependence Current Visit: No Status: Acute Priority: High Code(s): F10.20 - ALCOHOL DEPENDENCE, UNCOMPLICATED SNOMED Code(s): 171588026 (4) Cannabis use disorder, severe, dependence Current Visit: No Status: Acute Priority: Medium Code(s): F12.20 - CANNABIS DEPENDENCE, UNCOMPLICATED SNOMED Code(s): 98935331 (5) Nicotine dependence Current Visit: No Status: Acute Priority: Low Code(s): F17.200 - NICOTINE DEPENDENCE, UNSPECIFIED, UNCOMPLICATED SNOMED Code(s): 82249969 (6) Portal vein thrombosis Narrative/Plan: On anticoagulation. Likely from underlying liver disease, secondary to alcohol abuse Current Visit: No Status: Acute Code(s): I81 - PORTAL VEIN THROMBOSIS SNOMED Code(s): 61378083 Plan: 1. Continue symptomatic and supportive care 2. Continue aggressive IV hydration 3. Pain medication as needed 4. Antiemetics as needed 5. Protonix 40 mg daily for GI prophylaxis 6. Start with ice chips then advance to clear liquids and then as tolerated 7. Repeat CBC, CMP, lipase tomorrow 8. Recommend alcohol abstinence 9. Recommend smoking cessation Thank you for this consultation, we will continue to follow. Dr. Janet Shoemaker I agree with the dictator's note, documented as a scribe by Natalya Schuler.
[2024-11-01] MEDS: GABAPENTIN 300 MG CAP PO SCH (16:52)
[2024-11-01] MEDS: PIPERACILLIN-TAZOBACTAM 3.375 GM in SODIUM CHLORIDE 0.9% 100 ML IVPB SCH ×2 (18:03→23:51)
[2024-11-01] MEDS: NYSTATIN 100,000 UNIT/GM POWD 15 GM TOPICAL SCH (18:09)
[2024-11-01] MEDS: SERTRALINE 100 MG TAB PO SCH (21:20)
[2024-11-02 08:03] LABS: Basophils # (A) 0.07 X 10*3/uL (0.00-0.10); Eosinophils # (A) 0.54 X 10*3/uL (0.04-0.35); Eosinophils % (A) 7.5 %; HCT 31.3 % (37.2-46.3); HGB 9.3 g/dL (12.0-15.0); Lymphocytes # (A) 1.63 X 10*3/uL (0.90-5.00); Lymphocytes % (A) 22.8 %; MCHC 29.7 g/dL (32.0-37.0); Mean Platelet Volume 9.7 FL (9.5-12.2); Monocytes # (A) 0.94 X 10*3/uL (0.20-1.00); Monocytes % (A) 13.1 %; NRBC Per 100 WBC 0 X 10*3/uL (0.00-0.01); Neutrophils # (A) 3.93 X 10*3/uL (1.80-7.70); Neutrophils % (A) 54.9 %; Platelet Count 460 X 10*3/uL (140-440); RDW 18.6 % (11.5-14.5); WBC 7.16 X 10*3/uL (4.50-10.00)
[2024-11-02 08:12] LABS: BUN/Creat Ratio 9.17 Ratio (12.00-20.00); Blood Urea Nitrogen 5.5 mg/dL (9.0-27.0); Chloride 109 mmol/L (96-109); Glucose 65 mg/dL (70-110); Lipase 28 U/L (14-63); Potassium 4.6 mmol/L (3.5-5.5); Sodium 140 mmol/L (135-145)
[2024-11-02 08:13] LABS: ALT 9 U/L (8-44); AST 18 U/L (13-35); Albumin 2.9 g/dL (3.8-4.9); Albumin/Globulin Ratio 1.21 Ratio (1.60-3.17); Alkaline Phosphatase 144 U/L (41-126); Calcium 8.7 mg/dL (8.7-10.3); Carbon Dioxide 21.4 mmol/L (21.6-31.8); Globulin 2.4 g/dL (1.6-3.3); Total Bilirubin 0.3 mg/dL (0.3-1.2); Total Protein 5.3 g/dL (6.2-8.2)
--- NOTE | 2024-11-02 11:01 | P.PN ---
Subjective Progress Note Date: 11/02/24 Principal diagnosis: Pancreatitis This is a pleasant 49-year-old female who was transferred to the emergency department yesterday from [facility] with continued complaints of left-sided abdominal pain which increases with coughing, she taking a deep breath or movement. Patient was recently seen at this hospital on 10/23/2024 with same complaints had a CT of the abdomen pelvis with finding of portal vein thrombus. She was seen by vascular surgery at that time and we had recommended starting anticoagulation. Patient has been on Eliquis she is on 5 mg twice daily and states she has been taking as scheduled. She states her abdominal pain was worsening so she went to the emergency department for further evaluation. CT abdomen and pelvis reported findings consistent with pancreatitis. Gastroenterology was consulted for acute pancreatitis. Denied any nausea or vomiting associated with that. Past medical history includes alcohol pancreatitis, gum cancer, gastric bypass and seizure disorder. History also includes illicit drug use including cocaine marijuana and methamphetamines as well as alcohol abuse. States her last drink was about 10 days ago prior to coming into the hospital, smoked marijuana yesterday however states last illicit drug use was over a year ago. Prior to that heavy alcohol abuse up to a gallon a day. She had a CT of the chest abdomen and pelvis with contrast during her last admission reporting portal vein filling defect suggestive of thrombus amongst other things. Vascular surgery was consulted for portal vein thrombus. There was also note of loculated fluid collection in the left upper quadrant talk to be extending towards the pancreas. Patient was admitted for abdominal pain with elevated amylase and lipase as well as CT evidence of pancreatitis. Patient is afebrile. She continues to complain of abdominal pain mostly in the left upper and lower abdomen. Denies any nausea or vomiting. Denies any diarrhea. States she had 1 episode of loose stool yesterday. No shortness of breath or chest pain. 11/02/2024 Patient seen and examined today as a follow-up. She states that she has feeling about the same however she is saying she is hungry and wants to eat. Clear liquid diet was ordered yesterday afternoon however patient states they have not let her drink anything. She was sitting up at the bedside. Does not appear in any distress. Today's labs WBC 7.1 hemoglobin 9.3 platelet count 460,000 sodium 140 potassium 4.6 BUN 5.5 creatinine 0.6 total bilirubin 0.3 AST 18 ALT 19 alkaline phosphatase 144 lipase 28 Objective - Vital Signs Vital signs: Vital Signs Temp 97.6 F 11/02/24 00:17 Pulse 83 11/02/24 00:17 Resp 15 11/02/24 00:17 BP 107/74 11/02/24 00:17 Pulse Ox 94 L 11/02/24 00:17 FiO2 Intake & Output 11/01/24 11/02/24 11/02/24 18:59 06:59 18:59 Weight 77.564 kg Other: # Voids 2 2 # Bowel Movements 3 - Exam General appearance: The patient is alert, oriented, appears in no acute distress. HET: Head is normocephalic and atraumatic. Conjunctiva pink. Sclera anicteric. Neck: Supple without lymphadenopathy. Abdomen: Soft, tenderness seems somewhat improved, left upper quadrant and lower quadrant, nondistended. Extremities: Normal skin color and turgor. No pedal edema Skin: No rashes, no jaundice Neurological: No focal deficits. Alert and oriented. - Labs CBC & Chem 7: 11/02/24 04:11 11/02/24 04:11 Labs: Abnormal Lab Results - Last 24 Hours (Table) 11/01/24 Range/Units 11:19 Iron 47 L (50-170) UG/DL TIBC 141 L (228-460) UG/DL Transferrin 101.0 L (204.0-354.0) mg/dL Assessment and Plan (1) Acute pancreatitis Narrative/Plan: 49-year-old female with alcohol dependence and previous history of a alcohol pancreatitis presents with complaints of left upper quadrant abdominal pain as well as lower abdominal pain with CT evidence of inflammation around the pancreas and elevated amylase and lipase consistent with acute pancreatitis. Again pancreatitis likely secondary to alcohol use. Patient has history of heavy alcohol use reports last drinking about 10 days ago. This is also in a patient with portal vein thrombosis on anticoagulation. Continue with sympto matic treatment. Significant drop in lipase. Advance diet as tolerated. Continue with alcohol abstinence. Can follow-up with gastroenterology on outpatient basis Current Visit: Yes Status: Acute Code(s): K85.90 - ACUTE PANCREATITIS WITHOUT NECROSIS OR INFECTION, UNSP SNOMED Code(s): 813329868 (2) Abdominal pain Current Visit: Yes Status: Acute Code(s): R10.9 - UNSPECIFIED ABDOMINAL PAIN SNOMED Code(s): 35427502 (3) Alcohol use disorder, severe, dependence Current Visit: No Status: Acute Priority: High Code(s): F10.20 - ALCOHOL DEPENDENCE, UNCOMPLICATED SNOMED Code(s): 924004808 (4) Cannabis use disorder, severe, dependence Current Visit: No Status: Acute Priority: Medium Code(s): F12.20 - CANNABIS DEPENDENCE, UNCOMPLICATED SNOMED Code(s): 15850099 (5) Nicotine dependence Current Visit: No Status: Acute Priority: Low Code(s): F17.200 - NICOTINE DEPENDENCE, UNSPECIFIED, UNCOMPLICATED SNOMED Code(s): 74100981 (6) Portal vein thrombosis Narrative/Plan: On anticoagulation. Likely from underlying liver disease, secondary to alcohol abuse Current Visit: No Status: Acute Code(s): I81 - PORTAL VEIN THROMBOSIS SNOMED Code(s): 64008194 Plan: 1. Continue symptomatic and supportive care 2. Clear liquid diet, then advance to full liquid and then as tolerated 3. Pain medication as needed 4. Antiemetics as needed 5. Protonix 40 mg daily for GI prophylaxis 6. Recommend alcohol abstinence 7. Recommend smoking cessation, has nicotine patch currently 8. No further workup recommended from gastroenterology. Patient can be discharged if tolerating diet Thank you for this consultation, gastroenterology will sign off at this time as there will be no further hospital coverage through next week. Recommend outpatient follow-up with gastroenterology in [address] Janet Shoemaker I agree with the dictator's note, documented as a scribe by Natalya Schuler.
--- NOTE | 2024-11-02 13:41 | CT ---
EXAMINATION TYPE: CT brain wo con CT DLP: 1097.9 mGycm, Automated exposure control for dose reduction was used. DATE OF EXAM: 11/02/2024 1:33 PM COMPARISON: Multiple CT brain with most recent 10/23/2024. MRI brain 07/10/2012. CLINICAL INDICATION:Female, 49 years old with history of r/o stroke, R/O STROKE, SLIP IN TRANSPORT TECHNIQUE: Brain: Multiple axial CT images of the brain were obtained without IV contrast. . Coronal and sagitta l reformats reviewed. FINDINGS: Brain: Extra-axial spaces: No abnormal extra-axial fluid collections. Ventricular system: Within normal limits Cerebral parenchyma: No acute intraparenchymal hemorrhage or mass effect. The guzman-white junction is well differentiated. Cerebellum: Stable left anterior cerebellar CSF attenuating lesion. Mass effect: No evidence of midline shift. Intracranial vasculature: unremarkable Soft tissues: Normal. Calvarium/osseous structures: No depressed skull fracture. Paranasal sinuses and mastoid air cells: Minimal scattered paranasal sinus disease. Visualized orbits: Orbital contents are intact. IMPRESSION: 1. No acute intracranial process. 2. Stable left anterior cerebellar CSF attenuating lesion dating back to 2011, possibly representing remote injury. [facility], , 11/02/2024 1:38 PM
--- NOTE | 2024-11-02 16:01 | P.PN ---
Subjective Progress Note Date: 11/02/24 Hospital Course: Patient is a 49-year-old female with history of alcohol abuse disorder, hepatic steatosis, anxiety, depression, CVA (in 2012) and gastric bypass surgery is transferred from [facility] yesterday after she presented with left upper quadrant and epigastric abdominal pain which has been ongoing for the last 2 weeks but has got worse in the last 3 days. Patient was hospitalized to [facility] on 10/23/2024 with a similar complaint. She was diagnosed with portal vein thrombosis. No surgical intervention was done. Patient was sent home on anticoagulation. Patient reports good compliance. However, patient continued to endorse left-sided abdominal pain which is getting worse from the last 3 days associated with nausea and vomiting. Denies any tarry colored or bloody bowel movement. This prompted her to go to [facility] ER yesterday where she had a CAT scan of the abdomen pelvis which showed extensive fat stranding in the ascending colon extending to the pancreas body and tail with findings suggestive of colitis and or acute pancreatitis. Lab work at [facility] showed lipase 445. Vascular surgery was not available at that hospital therefore patient was transferred to [facility]. Patient has very extensive alcohol history. Patient reports that she has been drinking 1 gallon of hard liquor for more than 10 years quitting in 2019. However, she has been drinking socially with her last drink 10 days ago when she doing a pint of liquor. Patient has history of pancreatitis in the past requiring hospitalization. Initial laboratory work in the ER here shows WBC 11.0, hemoglobin 9.9, platelet count 584, PT 45.6, D-dimer 5.86, sodium 134, potassium 4.1, chloride 105, bicarb 23, lactic acid 1.8, calcium 8.3, AST 19, ALT 11, ALP 139, amylase 268, lipase 2188. Vital signs on arrival shows temperature 98.7 F, pulse rate 86, respiration rate 20, blood pressure 146/61, oxygen saturation 95% on room air. Subjective: Patient seen and examined at the bedside. No acute events overnight. Patient stated that she continues to have mild left abdominal pain. Denies nausea or vomiting. Tolerating clear liquid diet. Patient has tremors in upper extremities. Bilateral brain CT has been ordered. All Systems reviewed and pertinent positives and negatives noted in HPI, all other symptoms are negative Objective: Vital signs reviewed. General: non toxic, no distress, appears older than stated age, overweight Derm: no unusual rashes/lesions, warm Head: atraumatic, normocephalic, symmetric Eyes: EOMI, no lid lag, anicteric sclera, pupils equal round reactive to light ENT: Nose and ears atraumatic Neck: No cervical lymphadenopathy, trachea midline, supple Mouth: no lip lesion, mucus membranes moist Cardiovascular: S1S2 reg, no murmur, positive dorsalis pedis pulse bilateral, no edema Lungs: CTA bilateral, no rhonchi, no rales, no accessory muscle use Abdominal: soft, tender to palpation on left upper and lower quadrant. Bowel sounds positive. No rebound tenderness. Ext: muscle strength 5 out of 5 in all 4 extremities grossly, no gross muscle atrophy, no contractures, Neuro: CN II-XI grossly intact, no gross focal neuro deficits Psych: Alert, oriented, appropriate affect Data reviewed today: Pertinent Labs: WBC 7.6, hemoglobin 9.3, platelet count 460, sodium 140, potassium 4.6, BUN 5.5, creatinine 0.6, glucose 65, ALP 144, lipase 28 Images: Brain CT shows no acute intracranial process. There is stable left anterior cervical CSF attenuating lesion dating back to 2011 which possibly represent report injury. Assessment and Plan: Active problems: #Abdominal pain secondary to acute pancreatitis, likely alcoholic #History of portal vein thrombosis on 10/23/2024 #History of alcohol abuse disorder #Hepatic steatosis #Elevated alkaline phosphatase CAT scan of the abdomen pelvis at [facility] shows findings suggestive of colitis and or acute pancreatitis. Amylase trending down to 28 and is normal Vascular surgery signed off with no intervention, GI service on board, appreciate recs Clear liquid diet and then advance to regular diet as tolerated Pain control with morphine 4 mg IV every 4 hours as needed Repeat CBC and CMP tomorrow a.m. Procalcitonin negative, discontinue IV Zosyn #History of CVA in 2022 Tremors bilateral upper extremities Order CT brain CT brain is unremarkable #Macrocytic anemia Iron studies show iron 47, TIBC 141, ferritin 126 Vitamin B12 843, RBC folate 727 Monitor CBC Chronic: Constipation: Resume Colace 100 mg p.o. daily Neuropathy: Resume Neurontin 300 p.o. 3 times daily Anxiety and depression: Resume Atarax 100 mg p.o. 3 times daily and Zoloft 100 mg p.o. twice daily DVT prophylaxis: Eliquis 10 mg p.o. twice daily GI prophylaxis: IV Protonix 40 mg daily F: None E: Replete as needed N: Clear liquid diet then advance to regular diet as tolerated A: Ambulatory at baseline CODE STATUS: Full code Discussed with: Patient Anticipated discharge place: Pending clinical course Dictation was produced using [employer] dictation software. Please excuse any grammatical, word or spelling errors. Attestation I have seen and examined this patient with my resident , discussed the same with the resident/BETH, and agree with the dictator's assessment and plan as written Dr. Sami jeff Objective - Vital Signs Vital signs: Vital Signs Temp 98.5 F 11/02/24 14:00 Pulse 88 11/02/24 14:00 Resp 20 11/02/24 14:00 BP 122/82 11/02/24 14:00 Pulse Ox 96 11/02/24 14:00 FiO2 Intake & Output 11/01/24 11/02/24 11/02/24 18:59 06:59 18:59 Weight 77.564 kg Other: # Voids 2 2 # Bowel Movements 3 - Labs CBC & Chem 7: 11/06/24 03:17 11/06/24 03:17 Labs: Abnormal Lab Results - Last 24 Hours (Table) 11/02/24 11/02/24 Range/Units 04:11 04:11 RBC 3.10 L (4.10-5.20) X 10*6/uL Hgb 9.3 L (12.0-15.0) g/dL Hct 31.3 L (37.2-46.3) % MCV 101.0 H (80.0-97.0) FL MCHC 29.7 L (32.0-37.0) g/dL RDW 18.6 H (11.5-14.5) % Plt Count 460 H (140-440) X 10*3/uL Immature Gran # 0.05 H (0.00-0.04) X 10*3/uL Eosinophils # 0.54 H (0.04-0.35) X 10*3/uL Carbon Dioxide 21.4 L (21.6-31.8) mmol/L BUN 5.5 L (9.0-27.0) mg/dL BUN/Creatinine Ratio 9.17 L (12.00-20.00) Ratio Glucose 65 L (70-110) mg/dL Alkaline Phosphatase 144 H (41-126) U/L Total Protein 5.3 L (6.2-8.2) g/dL Albumin 2.9 L (3.8-4.9) g/dL Albumin/Globulin Ratio 1.21 L (1.60-3.17) Ratio
[2024-11-03] MEDS: hydrOXYzine HCL 25 MG TAB PO PRN (01:54)
[2024-11-03 09:50] LABS: Basophils # (A) 0.05 X 10*3/uL (0.00-0.10); Basophils % (A) 0.6 %; Eosinophils # (A) 0.47 X 10*3/uL (0.04-0.35); Eosinophils % (A) 5.7 %; HGB 8.2 g/dL (12.0-15.0); Lymphocytes # (A) 2.31 X 10*3/uL (0.90-5.00); Lymphocytes % (A) 28.1 %; MCH 29.3 pg (27.0-32.0); MCHC 29.3 g/dL (32.0-37.0); Mean Platelet Volume 9.7 FL (9.5-12.2); Monocytes # (A) 1.01 X 10*3/uL (0.20-1.00); Monocytes % (A) 12.3 %; NRBC Per 100 WBC 0 X 10*3/uL (0.00-0.01); Neutrophils # (A) 4.34 X 10*3/uL (1.80-7.70); Neutrophils % (A) 52.9 %; Platelet Count 383 X 10*3/uL (140-440); RDW 18.5 % (11.5-14.5); WBC 8.21 X 10*3/uL (4.50-10.00)
[2024-11-03 09:51] LABS: Appearance,Urine Clear (Clear); Bilirubin,Urine Negative (Negative); Blood,Urine Negative (Negative); Color,Urine Colorless; Glucose,Urine (UA) Negative (Negative); Ketones,Urine Negative (Negative); Leukocyte Esterase,Urine Negative (Negative); Nitrite,Urine Negative (Negative); Protein,Urine Negative (Negative); Specific Gravity,Urine 1.005 (1.001-1.035); Urobilinogen,Urine <2.0 mg/dL (<2.0)
[2024-11-03] MEDS: IOPAMIDOL CONTRAST (ORAL USE) VIAL PO PRN (09:54)
[2024-11-03 10:33] LABS: Blood Urea Nitrogen 4.2 mg/dL (9.0-27.0); Calcium 8.5 mg/dL (8.7-10.3); Carbon Dioxide 25.5 mmol/L (21.6-31.8); Chloride 110 mmol/L (96-109); Glucose 102 mg/dL (70-110); Potassium 4.3 mmol/L (3.5-5.5); Sodium 143 mmol/L (135-145)
--- NOTE | 2024-11-03 12:09 | CT ---
EXAMINATION TYPE: CT abdomen pelvis w con DATE OF EXAM: 11/03/2024 COMPARISON: Prior CT October 23, 2024 and older studies. CLINICAL INDICATION: Female, 49 years old with history of LLQ abd pain; Hx of pancreatitis, ABD PAIN, TECHNIQUE: CT scan of the abdomen and pelvis is performed with IV Contrast, patient injected with 100 mL of Isov ue 300., (none if empty) Oral contrast used: with Oral Contrast (none if empty) CT DLP: 1213.4 mGycm, Automated exposure control for dose reduction was used. FINDINGS: LUNG BASES: Mild to moderate bibasilar linear scarring and/or atelectasis on the current study. LIVER/GB: Persistent hepatomegaly. Liver is heterogeneously hypointense dense consistent with diffuse fatty infiltrative hepatocellular disease. Cholecystectomy clips are redemonstrated. Persistent part ial thrombosis of the main portal vein on image 43 similar to prior. PANCREAS: Persistent severe generalized atrophy of the pancreatic head and proximal body. Persistent moderate to severe ill-defined fluid and fat stranding surrounding the pancreas with more focal fluid collections in the left upper quadrant redemonstrated. They are smaller in size versus prior CT. Ant erior one measures 3.5 x 3.1 cm on image 27 versus 6.0 x 4.7 cm on prior reference. No new focal flui d collections. There is some heterogeneity in the tail with some tubular shaped lucent area that appe ars to extend to the margin of the pancreas coronal images 49 through 52. SPLEEN: No significant abnormality is seen. ADRENALS: No significant abnormality is seen. KIDNEYS: No significant abnormality is seen. BOWEL: Surgical changes from gastric bypass procedure is redemonstrated. Oral contrast does not reach terminal ileum. No abnormal small or large bowel dilatation is seen. UTERUS/ADNEXA: Uterus is surgically absent or markedly atrophic in appearance similar to prior. LYMPH NODES: No greater than 1cm abdominal or pelvic lymph nodes are appreciated. OSSEOUS STRUCTURES: Mrihodrh-ub-sapgrb disc space narrowing with vacuum disc phenomenon at the lumbos acral junction is redemonstrated. OTHER: No significant additional abnormality is seen. IMPRESSION: 1. Findings redemonstrated consistent with acute interstitial edematous pancreatitis. There are impro ving focal fluid collections in the left upper quadrant. There is persistent significant inflammatory change. Cannot exclude transection or glanular injury to the distal pancreatic body as noted in body of report. Areas of necrosis in the distal body and tail are difficult to entirely exclude also. 2. Persistent hepatomegaly and marked fatty infiltrative hepatocellular disease. Persistent partial t hrombosis of the main portal vein. [facility], , 11/03/2024 12:06 PM
[2024-11-03] MEDS: ONDANSETRON 4 MG/2 ML VIAL IVP PRN (13:27)
[2024-11-03 14:26] LABS: Amylase 52 U/L (30-110); Lipase 178 U/L (23-300)
--- NOTE | 2024-11-03 15:45 | P.PN ---
Subjective Progress Note Date: 11/03/24 Hospital Course: Patient is a 49-year-old female with history of alcohol abuse disorder, hepatic steatosis, anxiety, depression, CVA (in 2012) and gastric bypass surgery is transferred from [facility] yesterday after she presented with left upper quadrant and epigastric abdominal pain which has been ongoing for the last 2 weeks but has got worse in the last 3 days. Patient was hospitalized to [facility] on 10/23/2024 with a similar complaint. She was diagnosed with portal vein thrombosis. No surgical intervention was done. Patient was sent home on anticoagulation. Patient reports good compliance. However, patient continued to endorse left-sided abdominal pain which is getting worse from the last 3 days associated with nausea and vomiting. Denies any tarry colored or bloody bowel movement. This prompted her to go to [facility] ER yesterday where she had a CAT scan of the abdomen pelvis which showed extensive fat stranding in the ascending colon extending to the pancreas body and tail with findings suggestive of colitis and or acute pancreatitis. Lab work at [facility] showed lipase 445. Vascular surgery was not available at that hospital therefore patient was transferred to [facility]. Patient has very extensive alcohol history. Patient reports that she has been drinking 1 gallon of hard liquor for more than 10 years quitting in 2019. However, she has been drinking socially with her last drink 10 days ago when she doing a pint of liquor. Patient has history of pancreatitis in the past requiring hospitalization. Initial laboratory work in the ER here shows WBC 11.0, hemoglobin 9.9, platelet count 584, PT 45.6, D-dimer 5.86, sodium 134, potassium 4.1, chloride 105, bicarb 23, lactic acid 1.8, calcium 8.3, AST 19, ALT 11, ALP 139, amylase 268, lipase 2188. Vital signs on arrival shows temperature 98.7 F, pulse rate 86, respiration rate 20, blood pressure 146/61, oxygen saturation 95% on room air. Subjective: Patient seen and examined at the bedside. No acute events overnight. Patient stated that she continues to have sharp, 8/10, nonradiating left abdominal pain. Denies nausea or vomiting, fever, chills, bloody or tarry colored stools. Denies dysuria, urgency, frequency of urination. Tolerating soft diet. CT brain done yesterday was unremarkable. All Systems reviewed and pertinent positives and negatives noted in HPI, all other symptoms are negative Objective: Vital signs reviewed. General: non toxic, no distress, appears older than stated age, overweight Derm: no unusual rashes/lesions, warm Head: atraumatic, normocephalic, symmetric Eyes: EOMI, no lid lag, anicteric sclera, pupils equal round reactive to light ENT: Nose and ears atraumatic Neck: No cervical lymphadenopathy, trachea midline, supple Mouth: no lip lesion, mucus membranes moist Cardiovascular: S1S2 reg, no murmur, positive dorsalis pedis pulse bilateral, no edema Lungs: CTA bilateral, no rhonchi, no rales, no accessory muscle use Abdominal: soft, tender to palpation on left upper and lower quadrant. Bowel sounds positive. No rebound tenderness. Ext: muscle strength 5 out of 5 in all 4 extremities grossly, no gross muscle atrophy, no contractures, Neuro: CN II-XI grossly intact, no gross focal neuro deficits Psych: Alert, oriented, appropriate affect Data reviewed today: Pertinent Labs: WBC 8.21, hemoglobin 8.2, platelet count 383, sodium 143, potassium 4.3, BUN 4.2, creatinine 0.5, calcium 8.5, lipase 132, amylase 52 Images: CAT scan of the abdomen pelvis showed acute interstitial edematous pancreatitis and persistent partial thrombosis of the main portal vein. Assessment and Plan: Active problems: #Abdominal pain secondary to acute pancreatitis, likely alcoholic #History of portal vein thrombosis on 10/23/2024 #History of alcohol abuse disorder #Hepatic steatosis #Elevated alkaline phosphatase CAT scan of the abdomen pelvis at [facility] shows findings suggestive of colitis and or acute pancreatitis. CAT scan of the abdomen pelvis 11/03/2024 showed acute interstitial edematous pancreatitis and persistent partial thrombosis of the main portal vein. Amylase and lipase within normal range Vascular surgery signed off with no intervention, GI service signed off. Patient is put back on clear liquid diet and slowly advance to soft diet as tolerated Pain control with morphine 4 mg IV every 4 hours as needed Repeat CBC and CMP tomorrow a.m. Procalcitonin negative, discontinue IV Zosyn #History of CVA in 2022 Tremors bilateral upper extremities CT brain is unremarkable #Macrocytic anemia Iron studies show iron 47, TIBC 141, ferritin 126 Vitamin B12 843, RBC folate 727 Monitor CBC Chronic: Constipation: Resume Colace 100 mg p.o. daily Neuropathy: Resume Neurontin 300 p.o. 3 times daily Anxiety and depression: Resume Atarax 100 mg p.o. 3 times daily and Zoloft 100 mg p.o. twice daily DVT prophylaxis: Eliquis 10 mg p.o. twice daily GI prophylaxis: P.o. Protonix 40 mg daily F: None E: Replete as needed N: Clear liquid diet then advance to regular diet as tolerated A: Ambulatory at baseline CODE STATUS: Full code Discussed with: Patient Anticipated discharge place: Pending clinical course Dictation was produced using [employer] dictation software. Please excuse any grammatical, word or spelling errors. Objective - Vital Signs Vital signs: Vital Signs Temp 98.3 F 11/03/24 07:20 Pulse 63 11/03/24 07:20 Resp 18 11/03/24 07:20 BP 117/75 11/03/24 07:20 Pulse Ox 90 L 11/03/24 07:20 FiO2 Intake & Output 11/02/24 11/03/24 11/03/24 18:59 06:59 18:59 Intake Total 1650 Balance 1650 Intake: Oral 1650 Other: # Voids 2 6 - Labs CBC & Chem 7: 11/03/24 02:56 11/03/24 02:56 Labs: Abnormal Lab Results - Last 24 Hours (Table) 11/03/24 11/03/24 Range/Units 02:56 02:56 RBC 2.80 L (4.10-5.20) X 10*6/uL Hgb 8.2 L (12.0-15.0) g/dL Hct 28.0 L (37.2-46.3) % MCV 100.0 H (80.0-97.0) FL MCHC 29.3 L (32.0-37.0) g/dL RDW 18.5 H (11.5-14.5) % Monocytes # 1.01 H (0.20-1.00) X 10*3/uL Eosinophils # 0.47 H (0.04-0.35) X 10*3/uL Chloride 110 H (96-109) mmol/L BUN 4.2 L (9.0-27.0) mg/dL Creatinine 0.5 L (0.6-1.5) mg/dL BUN/Creatinine Ratio 8.40 L (12.00-20.00) Ratio Calcium 8.5 L (8.7-10.3) mg/dL
[2024-11-03] MEDS: LACTATED RINGERS 1,000 ML IV SCH (16:00)
[2024-11-04] MEDS: PANTOPRAZOLE 40 MG TABLET PO SCH (06:19)
[2024-11-04] MEDS: DOCUSATE 100 MG CAP PO PRN (09:11)
[2024-11-04 09:31] LABS: Basophils # (A) 0.08 X 10*3/uL (0.00-0.10); Basophils % (A) 1.1 %; Eosinophils # (A) 0.68 X 10*3/uL (0.04-0.35); Eosinophils % (A) 9.6 %; HCT 30.9 % (37.2-46.3); Lymphocytes # (A) 2.68 X 10*3/uL (0.90-5.00); Lymphocytes % (A) 37.7 %; MCH 29.3 pg (27.0-32.0); MCHC 29.1 g/dL (32.0-37.0); MCV 100.7 FL (80.0-97.0); Mean Platelet Volume 9.4 FL (9.5-12.2); Monocytes # (A) 0.83 X 10*3/uL (0.20-1.00); Monocytes % (A) 11.7 %; NRBC Per 100 WBC 0.02 X 10*3/uL (0.00-0.01); Neutrophils % (A) 39.5 %; Platelet Count 484 X 10*3/uL (140-440); RBC 3.07 X 10*6/uL (4.10-5.20)
[2024-11-04 09:42] LABS: BUN/Creat Ratio <5.83 Ratio (12.00-20.00); Blood Urea Nitrogen <3.5 mg/dL (9.0-27.0); Calcium 8.8 mg/dL (8.7-10.3); Chloride 108 mmol/L (96-109); Glucose 83 mg/dL (70-110); Potassium 4.7 mmol/L (3.5-5.5); Sodium 143 mmol/L (135-145)
--- NOTE | 2024-11-05 00:03 | PN ---
PROGRESS NOTE DATE OF SERVICE: 11/04/2024 SUBJECTIVE: This 49-year-old woman, who was admitted with abdominal pain with possible alcoholic hepatitis, also had abdominal CAT scan today which showed pancreatitis. No chest pain. No palpitation. PHYSICAL EXAMINATION: VITAL SIGNS: Pulse is 59, blood pressure 103/70, and respirations 15. CHEST: Few scattered rhonchi. No crackles. ABDOMEN: Soft. Mild diffuse tenderness. LEGS: No edema. NERVOUS SYSTEM: Nonfocal. LABORATORY DATA: Hemoglobin is 9. Amylase and lipase normalized. ASSESSMENT: 1. Abdominal pain with possible acute on chronic pancreatitis. 2. History of EtOH. 3. History of portal vein thrombosis. 4. Multiple complex medical issues. RECOMMENDATIONS: Recommend to continue current management and continue symptomatic treatment. Otherwise, repeat labs in the morning. Closely follow. Advance diet. Further recommendations to follow. MMODL / IJN: [id number] /
[2024-11-05 08:35] LABS: Basophils # (A) 0.09 X 10*3/uL (0.00-0.10); Basophils % (A) 1.2 %; Eosinophils # (A) 0.81 X 10*3/uL (0.04-0.35); Eosinophils % (A) 10.5 %; HCT 30.7 % (37.2-46.3); Lymphocytes % (A) 32.5 %; MCHC 29.3 g/dL (32.0-37.0); MCV 102.3 FL (80.0-97.0); Mean Platelet Volume 9.6 FL (9.5-12.2); Monocytes # (A) 0.96 X 10*3/uL (0.20-1.00); Monocytes % (A) 12.5 %; NRBC Per 100 WBC 0 X 10*3/uL (0.00-0.01); Neutrophils # (A) 3.31 X 10*3/uL (1.80-7.70); Neutrophils % (A) 42.9 %; Platelet Count 494 X 10*3/uL (140-440); RDW 18.6 % (11.5-14.5)
[2024-11-05 09:28] LABS: ALT 9 U/L (8-44); AST 18 U/L (13-35); Albumin 2.9 g/dL (3.8-4.9); Albumin/Globulin Ratio 1.12 Ratio (1.60-3.17); Alkaline Phosphatase 133 U/L (41-126); BUN/Creat Ratio <5.83 Ratio (12.00-20.00); Blood Urea Nitrogen <3.5 mg/dL (9.0-27.0); Calcium 8.9 mg/dL (8.7-10.3); Chloride 106 mmol/L (96-109); Globulin 2.6 g/dL (1.6-3.3); Glucose 93 mg/dL (70-110); Potassium 4.6 mmol/L (3.5-5.5); Sodium 143 mmol/L (135-145); Total Bilirubin <0.2 mg/dL (0.3-1.2); Total Protein 5.5 g/dL (6.2-8.2)
[2024-11-05] MEDS: DOCUSATE 100 MG CAP PO SCH (11:11)
--- NOTE | 2024-11-05 13:14 | P.PN ---
Subjective Progress Note Date: 11/05/24 Hospital Course: Patient is a 49-year-old female with history of alcohol abuse disorder, hepatic steatosis, anxiety, depression, CVA (in 2012) and gastric bypass surgery is transferred from [facility] yesterday after she presented with left upper quadrant and epigastric abdominal pain which has been ongoing for the last 2 weeks but has got worse in the last 3 days. Patient was hospitalized to [facility] on 10/23/2024 with a similar complaint. She was diagnosed with portal vein thrombosis. No surgical intervention was done. Patient was sent home on anticoagulation. Patient reports good compliance. However, patient continued to endorse left-sided abdominal pain which is getting worse from the last 3 days associated with nausea and vomiting. Denies any tarry colored or bloody bowel movement. This prompted her to go to [facility] ER yesterday where she had a CAT scan of the abdomen pelvis which showed extensive fat stranding in the ascending colon extending to the pancreas body and tail with findings suggestive of colitis and or acute pancreatitis. Lab work at [facility] showed lipase 445. Vascular surgery was not available at that hospital therefore patient was transferred to [facility]. Patient has very extensive alcohol history. Patient reports that she has been drinking 1 gallon of hard liquor for more than 10 years quitting in 2019. However, she has been drinking socially with her last drink 10 days ago when she doing a pint of liquor. Patient has history of pancreatitis in the past requiring hospitalization. Initial laboratory work in the ER here shows WBC 11.0, hemoglobin 9.9, platelet count 584, PT 45.6, D-dimer 5.86, sodium 134, potassium 4.1, chloride 105, bicarb 23, lactic acid 1.8, calcium 8.3, AST 19, ALT 11, ALP 139, amylase 268, lipase 2188. Vital signs on arrival shows temperature 98.7 F, pulse rate 86, respiration rate 20, blood pressure 146/61, oxygen saturation 95% on room air. CAT scan of the abdomen and pelvis on 11/03/2024 showed acute interstitial edematous pancreatitis and persistent partial thrombosis of the main portal vein. Subjective: Patient seen and examined at the bedside. No acute events overnight. Patient reports improvement in her left-sided abdominal pain. She is tolerating clear liquid diet. CAT scan of the abdomen and pelvis done on 11/03/2024 showed a a cute interstitial edematous pancreatitis and persistent partial thrombosis of the main portal vein. Anticipating discharge within 24 hours. All Systems reviewed and pertinent positives and negatives noted in HPI, all other symptoms are negative Objective: Vital signs reviewed. General: non toxic, no distress, appears older than stated age, overweight Derm: no unusual rashes/lesions, warm Head: atraumatic, normocephalic, symmetric Eyes: EOMI, no lid lag, anicteric sclera, pupils equal round reactive to light ENT: Nose and ears atraumatic Neck: No cervical lymphadenopathy, trachea midline, supple Mouth: no lip lesion, mucus membranes moist Cardiovascular: S1S2 reg, no murmur, positive dorsalis pedis pulse bilateral, no edema Lungs: CTA bilateral, no rhonchi, no rales, no accessory muscle use Abdominal: soft, tender to palpation on left upper and lower quadrant. Bowel sounds positive. No rebound tenderness. Ext: muscle strength 5 out of 5 in all 4 extremities grossly, no gross muscle atrophy, no contractures, Neuro: CN II-XI grossly intact, no gross focal neuro deficits Psych: Alert, oriented, appropriate affect Data reviewed today: Pertinent Labs: WBC 7.7, hemoglobin 9.0, platelet count 494, sodium 143, potassium 4.6, creatinine 0.6, Images: No new images today Assessment and Plan: # Acute pancreatitis likely secondary to chronic alcoholism #Acute interstitial edematous pancreatitis #History of alcohol abuse disorder #Hepatic steatosis #Elevated alkaline phosphatase CAT scan of the abdomen pelvis at [facility] shows findings suggestive of colitis and or acute pancreatitis. CAT scan of the abdomen pelvis 11/03/2024 showed acute interstitial edematous pancreatitis and persistent partial thrombosis of the main portal vein. Amylase and lipase within normal range Vascular surgery signed off with no intervention, GI service signed off. Diet will be advanced to low-fat diet for this afternoon Pain control with morphine 4 mg IV every 4 hours as needed Repeat CBC and BMP tomorrow a.m. Procalcitonin negative, no indication for antibiotics Continue with IV lactated Ringer's at 125 cc/h #Partial portal vein thrombosis Anticoagulation treatment with Eliquis 10 mg p.o. twice daily #History of CVA in 2022 Tremors bilateral upper extremities CT brain is unremarkable No focal neurological deficits noted #Macrocytic anemia Iron studies show iron 47, TIBC 141, ferritin 126 Vitamin B12 843, RBC folate 727 Monitor CBC Chronic: Constipation: Resume Colace 100 mg p.o. daily Neuropathy: Resume Neurontin 300 p.o. 3 times daily Anxiety and depression: Resume Atarax 100 mg p.o. 3 times daily and Zoloft 100 mg p.o. twice daily DVT prophylaxis: Eliquis 10 mg p.o. twice daily GI prophylaxis: P.o. Protonix 40 mg daily F: None E: Replete as needed N: Clear liquid diet then advance to regular diet as tolerated A: Ambulatory at baseline CODE STATUS: Full code Discussed with: Patient Anticipated discharge place: Within 24 hours Dictation was produced using [employer] dictation software. Please excuse any grammatical, word or spelling errors. Objective - Vital Signs Vital signs: Vital Signs Temp 97.3 F L 11/05/24 08:41 Pulse 61 11/05/24 08:41 Resp 18 11/05/24 08:41 BP 124/79 11/05/24 08:41 Pulse Ox 100 11/05/24 08:41 FiO2 Intake & Output 11/04/24 11/05/24 11/05/24 18:59 06:59 18:59 Other: Voiding Method Toilet # Voids 1 2 # Bowel Movements 1 - Labs CBC & Chem 7: 11/05/24 03:30 11/05/24 03:30 Labs: Abnormal Lab Results - Last 24 Hours (Table) 11/05/24 11/05/24 Range/Units 03:30 03:30 RBC 3.00 L (4.10-5.20) X 10*6/uL Hgb 9.0 L (12.0-15.0) g/dL Hct 30.7 L (37.2-46.3) % MCV 102.3 H (80.0-97.0) FL MCHC 29.3 L (32.0-37.0) g/dL RDW 18.6 H (11.5-14.5) % Plt Count 494 H (140-440) X 10*3/uL Eosinophils # 0.81 H (0.04-0.35) X 10*3/uL BUN <3.5 L (9.0-27.0) mg/dL BUN/Creatinine Ratio <5.83 L (12.00-20.00) Ratio Total Bilirubin <0.2 L (0.3-1.2) mg/dL Alkaline Phosphatase 133 H (41-126) U/L Total Protein 5.5 L (6.2-8.2) g/dL Albumin 2.9 L (3.8-4.9) g/dL Albumin/Globulin Ratio 1.12 L (1.60-3.17) Ratio Microbiology - Last 24 Hours (Table) 11/03/24 09:30 Urine Culture - Final Urine,Clean Catch Assessment and Plan Assessment: Patient was physically seen and evaluated by me. I agree with the findings and management plan as documented above. Maricruz Pablo MD
[2024-11-06 09:51] LABS: Basophils # (A) 0.11 X 10*3/uL (0.00-0.10); Basophils % (A) 1.1 %; Eosinophils % (A) 4.1 %; HCT 32.1 % (37.2-46.3); HGB 9.6 g/dL (12.0-15.0); Lymphocytes # (A) 3.23 X 10*3/uL (0.90-5.00); Lymphocytes % (A) 33.4 %; MCH 29.9 pg (27.0-32.0); MCHC 29.9 g/dL (32.0-37.0); Monocytes # (A) 0.96 X 10*3/uL (0.20-1.00); Monocytes % (A) 9.9 %; NRBC Per 100 WBC 0 X 10*3/uL (0.00-0.01); Neutrophils # (A) 4.95 X 10*3/uL (1.80-7.70); Neutrophils % (A) 51.2 %; Platelet Count 587 X 10*3/uL (140-440); RBC 3.21 X 10*6/uL (4.10-5.20); RDW 18.2 % (11.5-14.5); WBC 9.68 X 10*3/uL (4.50-10.00)
[2024-11-06 10:19] LABS: BUN/Creat Ratio <5.00 Ratio (12.00-20.00); Blood Urea Nitrogen <3.5 mg/dL (9.0-27.0); Carbon Dioxide 29.1 mmol/L (21.6-31.8); Chloride 105 mmol/L (96-109); Glucose 91 mg/dL (70-110); Potassium 4.4 mmol/L (3.5-5.5); Sodium 140 mmol/L (135-145)
[2024-11-06 14:50] VITALS: BP 126/75; PULSE 61; RESP 18; TEMP 98.3
--- NOTE | 2024-11-06 16:39 | P.DS ---
Providers Date of admission: 11/01/24 02:40 Attending physician: Alberto Stone Consults: 11/01/24 02:37 Consult Physician Routine Consulting Provider: Isabela Shoemaker Consult Reason/Comments: pancreatitis Do you want consulting provider notified?: Yes Primary care physician: Kevyn Pena MD Hospital Course: Discharge Diagnosis: #Acute pancreatitis likely secondary to chronic alcoholism #Acute interstitial edematous pancreatitis #History of alcohol abuse disorder #Hepatic steatosis #Elevated alkaline phosphatase #Partial portal vein thrombosis #Microcytic anemia Hospital Course: Patient is a 49-year-old female with history of alcohol abuse disorder, hepatic steatosis, anxiety, depression, CVA (in 2012) and gastric bypass surgery is transferred from [facility] yesterday after she presented with left upper quadrant and epigastric abdominal pain which has been ongoing for the last 2 weeks but has got worse in the last 3 days. Patient was hospitalized to [facility] on 10/23/2024 with a similar complaint. She was diagnosed with portal vein thrombosis. No surgical intervention was done. Patient was sent home on anticoagulation. Patient reports good compliance. However, patient continued to endorse left-sided abdominal pain which is getting worse from the last 3 days associated with nausea and vomiting. Denies any tarry colored or bloody bowel movement. This prompted her to go to [facility] ER yesterday where she had a CAT scan of the abdomen pelvis which showed extensive fat stranding in the ascending colon extending to the pancreas body and tail with findings suggestive of colitis and or acute pancreatitis. Lab work at [facility] showed lipase 445. Vascular surgery was not available at that hospital therefore patient was transferred to [facility]. Patient has very extensive alcohol history. Patient reports that she has been drinking 1 gallon of hard liquor for more than 10 years quitting in 2019. H owever, she has been drinking socially with her last drink 10 days ago when she doing a pint of liquor. Patient has history of pancreatitis in the past requiring hospitalization. Initial laboratory work in the ER here shows WBC 11.0, hemoglobin 9.9, platelet count 584, PT 45.6, D-dimer 5.86, sodium 134, potassium 4.1, chloride 105, bicarb 23, lactic acid 1.8, calcium 8.3, AST 19, ALT 11, ALP 139, amylase 268, lipase 2188. Vital signs on arrival shows temperature 98.7 F, pulse rate 86, respiration rate 20, blood pressure 146/61, oxygen saturation 95% on room air. Repeat CAT scan of the abdomen and pelvis on 11/03/2024 showed acute interstitial edematous pancreatitis and persistent partial thrombosis of the main portal vein. Patient continues to show improvement in her symptoms. Tolerating her diet well. Otherwise, patient is hemodynamically stable and medically optimized for discharge. Discharge disposition: Home with home care Vital signs reviewed. General: non toxic, no distress, appears older than stated age, overweight Derm: no unusual rashes/lesions, warm Head: atraumatic, normocephalic, symmetric Eyes: EOMI, no lid lag, anicteric sclera, pupils equal round reactive to light ENT: Nose and ears atraumatic Neck: No cervical lymphadenopathy, trachea midline, supple Mouth: no lip lesion, mucus membranes moist Cardiovascular: S1S2 reg, no murmur, positive dorsalis pedis pulse bilateral, no edema Lungs: CTA bilateral, no rhonchi, no rales, no accessory muscle use Abdominal: soft, tender to palpation on left upper and lower quadrant. Bowel sounds positive. No rebound tenderness. Ext: muscle strength 5 out of 5 in all 4 extremities grossly, no gross muscle atrophy, no contractures, Neuro: CN II-XI grossly intact, no gross focal neuro deficits Psych: Alert, oriented, appropriate affect Dictation was produced using [employer] dictation software. Please excuse any grammatical, word or spelling errors. Attestation/ Outside Maintenance Worker Note: Attestation to D/C Summary, Participation I saw and evaluated the patient with the Resident, and I reviewed and discussed the patient with the Resident and agree with the Resident's findings and plans as documented above, management reviewed and discussed, I agree with findings & plan, Provider Signature - JARED HARRELL MD Patient Condition at Discharge: Stable Plan - Discharge Summary Discharge Rx Participant: No New Discharge Prescriptions: New HYDROcodone/APAP 5-325MG [Chester 5-325] 1 tab PO Q8HR PRN 3 Days #9 tab PRN Reason: Pain Scale 8 To 10 Continue hydrOXYzine HCL [Atarax] 100 mg PO TID PRN PRN Reason: Anxiety Ondansetron Odt [Zofran ODT] 8 mg PO BID PRN PRN Reason: Nausea And Vomiting Ketorolac [Toradol] 10 mg PO Q6HR PRN PRN Reason: Pain Sertraline [Zoloft] 100 mg PO BID Docusate [Colace] 100 mg PO DAILY PRN PRN Reason: Constipation Gabapentin [Neurontin] 300 mg PO TID Apixaban [Eliquis Starter Pack (for VTE)] See Taper PO DIRECTED Discharge Medication List Apixaban [Eliquis Starter Pack (for VTE)] See Taper PO DIRECTED 11/01/24 [History] Docusate [Colace] 100 mg PO DAILY PRN 11/01/24 [History] Gabapentin [Neurontin] 300 mg PO TID 11/01/24 [History] Ketorolac [Toradol] 10 mg PO Q6HR PRN 11/01/24 [History] Ondansetron Odt [Zofran ODT] 8 mg PO BID PRN 11/01/24 [History] Sertraline [Zoloft] 100 mg PO BID 11/01/24 [History] hydrOXYzine HCL [Atarax] 100 mg PO TID PRN 11/01/24 [History] HYDROcodone/APAP 5-325MG [Chester 5-325] 1 tab PO Q8HR PRN 3 Days #9 tab 11/06/24 [Rx] Follow up Appointment(s)/Referral(s): Isabela Shoemaker MD [STAFF PHYSICIAN] - 1 Week Kevyn Pena MD [Primary Care Provider] - 1-2 days Patient Instructions/Handouts: Pancreatitis (DC), Low Fat Diet (DC) Activity/Diet/Wound Care/Special Instructions: Please follow-up with your PCP and gastroenterology. Take Chester on as needed basis for pain. Discharge Disposition: HOME SELF-CARE
== END 2024-11-06 17:29 | disposition home or self-care (01) | DRG 438 ==
LOC: EC 22:56 → 4SSUR 11-01 02:39 → OBSVTOIN 11-01 02:40 → 4SSUR 11-01 06:21
PROVIDERS: ADMIT Hospitalist; ATTEND Hospitalist
DX: K85.20 Alcohol induced acute pancreatitis without necrosis or infection (principal); I81 Portal vein thrombosis; I5A Non-ischemic myocardial injury (non-traumatic); D50.9 Iron deficiency anemia, unspecified; F10.20 Alcohol dependence, uncomplicated; D53.9 Nutritional anemia, unspecified; F12.20 Cannabis dependence, uncomplicated; G40.909 Epilepsy, unspecified, not intractable, without status epilepticus; F32.A Depression, unspecified; E66.9 Obesity, unspecified; K76.0 Fatty (change of) liver, not elsewhere classified; M19.90 Unspecified osteoarthritis, unspecified site; G89.29 Other chronic pain; F17.200 Nicotine dependence, unspecified, uncomplicated; F41.9 Anxiety disorder, unspecified; G62.9 Polyneuropathy, unspecified; K59.09 Other constipation; R25.1 Tremor, unspecified; Z79.01 Long term (current) use of anticoagulants; Z79.899 Other long term (current) drug therapy; Z85.818 Personal history of malignant neoplasm of other sites of lip, oral cavity, and pharynx; Z86.718 Personal history of other venous thrombosis and embolism; Z86.73 Personal history of transient ischemic attack (TIA), and cerebral infarction without residual deficits; Z98.84 Bariatric surgery status; Z88.6 Allergy status to analgesic agent; Z68.26 Body mass index [BMI] 26.0-26.9, adult
CPT/HCPCS: 36415; 70450; 74177; 80048; 80053; 81003; 82150; 82607; 82728; 82747; 83540; 83550; 83605; 83690; 84145; 85025; 87086; 96361; 96374; 99285